=== PATIENT | female | born 1970 | race Caucasian/White ===

== ENCOUNTER → 2018-06-18 | Outpatient (CLI) | payer OTHER ==
[2018-06-18 13:11] VITALS: BP 156/81; PULSE 74; RESP 18
--- NOTE | 2018-06-18 13:32 | P.CONS ---
History of Present Illness - Reason for Consult Consult date: 06/18/18 - Chief Complaint Lower back and legs pain - History of Present Illness This is a 47-year-old lady with history of coronary disease and open-heart surgery. She is here today for chronic lower back pain that has been there for 15 years with no precipitating events. The pain goes across her lower back and radiates down both legs to the feet however she denies any numbness or tingling in the lower extremities. She also denies any bowel or bladder dysfunction or any weakness in the lower extremities. The pain gets worse by walking and improves by taking hot showers. The patient has been using [place] 10 mg 3 times a day for a few years however she would like to come off opioids and she's trying to find another way to treat her pain. Past Medical History Past Medical History: Hypertension, Myocardial Infarction ([place]) Additional Past Medical History / Comment(s): fibromyalgia, lupus. double bypass Last Myocardial Infarction Date:: 08/27/15 History of Any Multi-Drug Resistant Organisms: None Reported Past Surgical History: Heart Catheterization, Tonsillectomy Past Anesthesia/Blood Transfusion Reactions: No Reported Reaction Past Psychological History: No Psychological Hx Reported Smoking Status: Current every day smoker Past Alcohol Use History: None Reported Past Drug Use History: Marijuana, Opiates Additional Drug Use History / Comment(s): pt. states she smokes marijuana, and occassionally takes vicodin for pain - Past Family History Father History Unknown: Yes Brother(s) Family Medical History: No Reported History Sister(s) Family Medical History: No Reported History Mother Family Medical History: Hypertension Medications and Allergies Home Medications Medication Instructions Recorded Confirmed Type Acetaminophen [Tylenol] 1,000 mg PO Q4-6H PRN 08/28/15 06/18/18 History Aspirin EC [Ecotrin] 325 mg PO DAILY #30 tablet.dr 08/31/15 06/18/18 Rx Nitroglycerin Sl Tabs [Nitrostat] 0.4 mg SUBLINGUAL Q5M PRN #30 tab 08/31/1508/25 Rx Atenolol [Tenormin] 50 mg PO DAILY 11/17/15 06/18/18 History Furosemide [Lasix] 20 mg PO DAILY 12/03/15 06/18/18 History Hydrocodone/Acetaminophen [[place] 1 each PO Q6HR PRN #20 tab 12/25/15 06/18/18 Rx 5-325] Lisinopril [Zestril] 2.5 mg PO DIRECTED PRN 06/18/18 06/18/18 History Allergies Allergy/AdvReac Type Severity Reaction Status Date / Time No Known Allergies Allergy Verified 06/18/18 12:51 Physical Exam Vitals: Vital Signs Pulse Resp BP Pulse Ox 06/18/18 13:03 74 18 156/81 99 Intake and Output 06/17/18 06/18/18 06/18/18 22:59 06:59 14:59 Other: Weight 67.132 kg - Constitutional General appearance: average body habitus - EENT Eyes: PERRLA - Respiratory Respiratory: bilateral: CTA - Cardiovascular Heart sounds: normal: S1, S2 Abnormal Heart Sounds: systolic murmur - Neurologic Neurologic: CNII-XII intact - Musculoskeletal Neuro exam of the lower extremities showed normal and symmetrical muscle strength and deep tendon reflexes. Mateusz's test negative bilaterally Straight leg raising test negative bilaterally Internal and external rotation of the hip joints did not elicit any pain She has tenderness in the lumbar paravertebral area bilaterally - Psychiatric Psychiatric: A&O x's 3, appropriate affect, intact judgment & insight Results Results: The lumbar spine MRI showed disc bulging and neuroforaminal narrowing at the L5- S1 level plus facet arthropathy. Assessment and Plan Plan: This is a 47-year-old lady with what seems to be lumbar degenerative disc disease, neural foraminal stenosis, and lumbar spondylosis without myelopathy. She also has a history of fibromyalgia. The patient is opioid dependent however she is try to come off opioids and try other most of the treatments for her pain. The patient may benefit from getting physical therapy. For now I'll schedule her to have lumbar epidural steroid injection under fluoroscopic guidance at the L5-S1 level. She denies taking any strong anticoagulants despite her coronary artery disease, she only takes aspirin on a daily basis. The above-mentioned procedure was explained to the patient and her mother, questions were answered. I thank you for the referral
== END | disposition home or self-care (01) ==
LOC: PNWHC3 12:33
PROVIDERS: ATTEND Anesthesiology
DX: G89.29 Other chronic pain (principal); M54.5 Low back pain; M48.061 Spinal stenosis, lumbar region without neurogenic claudication; M51.36 Other intervertebral disc degeneration, lumbar region; M47.816 Spondylosis without myelopathy or radiculopathy, lumbar region; M79.7 Fibromyalgia; F11.20 Opioid dependence, uncomplicated; F12.90 Cannabis use, unspecified, uncomplicated; I10 Essential (primary) hypertension; I25.2 Old myocardial infarction; I25.10 Atherosclerotic heart disease of native coronary artery without angina pectoris; Z95.5 Presence of coronary angioplasty implant and graft; Z90.89 Acquired absence of other organs; Z79.82 Long term (current) use of aspirin
CPT/HCPCS: 99211

== ENCOUNTER 2018-06-27 06:17 | Day surgery (SDC) | payer OTHER ==
[2018-06-27] MEDS ORDERED: LACTATED RINGERS 1,000 ML IV ONE (07:10)
[2018-06-27 07:15] VITALS: TEMP 97.8
[2018-06-27] MEDS ORDERED: LACTATED RINGERS 1,000 ML IV SCH (07:15)
[2018-06-27] MEDS ORDERED: LIDOCAINE 1% 20 ML VIAL (10MG/ML) FOR IV START INTRADERMA ONE (07:17)
--- NOTE | 2018-06-27 08:08 | P.PCN ---
Date of Procedure: 06/27/18 Procedure(s) Performed: PREOPERATIVE DIAGNOSIS: 1- Lumbar Degenerative Disc Diseases 2-Lumbar spondylosis with Facet arthropathy without myelopathy POSTOPERATIVE DIAGNOSIS: 1-Lumber Degenerative Disc Diseases 2-Lumbar spondylosis with Facet arthropathy without myelopathy PROCEDURE 1. Lumbar epidural steroid injection under fluoroscopic guidance at the L5-S1 level. 2. Lumbar epidurogram. ANESTHESIA: Local with 1% lidocaine 3 ml and , moderate sedation with intravenous Versed 2 mg ,and fentanyle 50 Mcg EBL: Minimal PROCEDURE INDICATION: The patient with low back pain and radiculitis symptoms unresponsive to conservative treatment. Fluoroscopy was used to optimize visualization of the needle placement and to maximize safety. PROCEDURE DESCRIPTION / TECHNIQUE: The patient was seen and identified in the preoperative area. Risks, benefits , complications including but not limited to infections ,bleeding ,allergic reaction to the medications ,nerve damage and not complete pain releife , and alternatives were discussed with the patient. The patient agreed to proceed with the procedure and signed the consent. IV was started, and vital signs were stable. Patient was taken to the OR and time out was completed. The patient was placed in the prone position on procedure table and a pillow was placed under the abdomen to reduce lumbar lordosis. The lumbosacral area was prepped and draped in the usual sterile fashion.ere closely monitored during the procedure. Conscious sedation was used during the procedure to decrease patients anxiety. Vital signs was monitered during the entire procedure. Using anterior-posterior fluoroscopy, the L5-S1 interlaminar space was identified and the skin over this site was marked and then infiltrated with 1% lidocaine subcutaneously. Subsequently, a 20-gauge Tuohy epidural needle was inserted and advanced toward the epidural space using the ``Loss of resistance technique and guided by AP and lateral fluoroscopy. The correct needle position in the epidural space was verified with the injection of 2 mL of the water soluble contrast dye Isovue 200 contrast and observing an excellent epidurogram with the epidural spread of the dye, after negative aspiration for blood and CSF and in the absence of paresthesias. Again after negative aspiration, a 6 ml mixture containing 20 mg of Depo-Medrol , and 2 ml of preservative free Normal Saline, and 2 ml of preservative free lidocaine 1% solution was injected and a washout of epidurogram was seen. Needle was withdrawn intact, skin was cleansed, and bandages were applied. COMPLICATIONS: None DISPOSITION / PLANS: The patient was placed in a supine position and transferred to the recovery area in a stable condition for observation. There was no evidence of lower extremity motor or sensory deficit after the procedure. Patient was discharged from the recovery room after meeting discharge criteria. Home discharge instructions were given to the patient by the staff. The patient was reexamined prior to discharge. The patient will schedule a follow up in the clinic in 2-4 weeks.
[2018-06-27] MEDS ORDERED: IV FLUID CONTINUATION 1,000 ML IV ONE (08:13)
[2018-06-27 08:15] VITALS: RESP 16
--- NOTE | 2018-06-27 08:20 | FL ---
EXAMINATION TYPE: FL guided pain mgmt statistic DATE OF EXAM: 06/27/2018 HISTORY: Pain Lumbar epidural inj. Dr Yoo. 1 sec fl time. 1 pic scanned
[2018-06-27 08:30] VITALS: BP 145/87; PULSE 79
== END 2018-06-27 08:55 | disposition home or self-care (01) ==
LOC: ORPAIN 06:17
PROVIDERS: ATTEND Specialist
DX: M51.16 Intervertebral disc disorders with radiculopathy, lumbar region (principal); M47.26 Other spondylosis with radiculopathy, lumbar region; I25.10 Atherosclerotic heart disease of native coronary artery without angina pectoris; I10 Essential (primary) hypertension
CPT/HCPCS: 81025; 62323; J2250; J1030; J3010; Q9966

== ENCOUNTER 2018-07-10 08:32 | Day surgery (SDC) | payer OTHER ==
[2018-07-10 08:58] VITALS: TEMP 97.4
[2018-07-10] MEDS: LACTATED RINGERS 1,000 ML IV SCH ×2 (09:02→09:15)
--- NOTE | 2018-07-10 09:34 | P.PCN ---
Date of Procedure: 07/10/18 Surgeon: Piotr Mackenzie Description of Procedure: PREOPERATIVE DIAGNOSIS: Lumbar radiculopathy POSTOPERATIVE DIAGNOSIS: Same PROCEDURE Lumbar epidural steroid injection under fluoroscopic guidance at the [] level. ANESTHESIA: Local with 1% lidocaine 3 ml and IV sedation with Versed 2 mg EBL: Minimal PROCEDURE INDICATION: this is a pleasant 48-year-old woman with a history of back pain and pain in her buttocks and legs who presents today for lumbar epidural steroid injection. This is her second injection series. She reports significant reduction of her pain from her first procedure. PROCEDURE DESCRIPTION / TECHNIQUE: The patient was seen and identified in the preoperative area. Risks, benefits , complications including but not limited to infections ,bleeding ,allergic reaction to the medications ,nerve damage and not complete pain relief , and alternatives were discussed with the patient. The patient agreed to proceed with the procedure and signed the consent. IV was started, and vital signs were stable. Patient was taken to the OR and time out was completed. The patient was placed in the prone position on procedure table and a pillow was placed under the abdomen to reduce lumbar lordosis. The lumbosacral area was prepped and draped in the usual sterile fashion.ere closely monitored during the procedure. Conscious sedation was used during the procedure to decrease patients anxiety. Vital signs was monitered during the entire procedure. Using anterior-posterior fluoroscopy, the L5-S1 interlaminar space was identified and the skin over this site was marked and then infiltrated with 1% lidocaine subcutaneously. Subsequently, a 20-gauge Tuohy epidural needle was inserted and advanced toward the epidural space using the Loss of resistance technique and guided by AP and lateral fluoroscopy. The correct needle position in the epidural space was verified with the injection of contrast and observing an excellent epidurogram with the epidural spread of the dye, after negative aspiration for blood and CSF and in the absence of paresthesias. Again after negative aspiration, a 6 ml mixture co 80 mg of Depo-Medrol was injected and a washout of epidurogram was seen. Needle was withdrawn intact, skin was cleansed, and bandages were applied. COMPLICATIONS: None DISPOSITION / PLANS: The patient was placed in a supine position and transferred to the recovery area in a stable condition for observation. There was no evidence of lower extremity motor or sensory deficit after the procedure. Patient was discharged from the recovery room after meeting discharge criteria. Home discharge instructions were given to the patient by the staff. The patient was reexamined prior to discharge. The patient will schedule a follow up up for repeat of this procedure in 2-4 weeks.
[2018-07-10 09:45] VITALS: RESP 16
[2018-07-10] MEDS ORDERED: LACTATED RINGERS 1,000 ML IV ONE (09:47)
[2018-07-10 10:06] VITALS: BP 163/92; PULSE 74
--- NOTE | 2018-07-10 10:07 | FL ---
Fluoroscopy INDICATION: Pain FINDINGS: Fluoroscopy time: 2 seconds. Images obtained: 2. IMPRESSIONS: 1. Documentation of fluoroscopy.
== END 2018-07-10 10:27 | disposition home or self-care (01) ==
LOC: ORPAIN 08:32
PROVIDERS: ATTEND Pain Medicine Pain Medicine
DX: G89.29 Other chronic pain (principal); M54.16 Radiculopathy, lumbar region; Z79.891 Long term (current) use of opiate analgesic; I10 Essential (primary) hypertension; I25.2 Old myocardial infarction; Z95.1 Presence of aortocoronary bypass graft; I25.10 Atherosclerotic heart disease of native coronary artery without angina pectoris; M79.7 Fibromyalgia; M32.9 Systemic lupus erythematosus, unspecified; F17.200 Nicotine dependence, unspecified, uncomplicated; Z79.82 Long term (current) use of aspirin; Z79.899 Other long term (current) drug therapy
CPT/HCPCS: 62323; J2250; J1030; J3010; 99152

== ENCOUNTER → 2018-07-25 | Day surgery (SDC) | payer OTHER ==
[~2018-07-25] MED LIST: SODIUM CHLORIDE 0.9% 500 ML 500 ML IV SCH
[2018-07-25 09:01] VITALS: RESP 18
--- NOTE | 2018-07-25 10:12 | P.PCN ---
Date of Procedure: 07/25/18 Procedure(s) Performed: PREOPERATIVE DIAGNOSIS: 1- Lumbar Degenerative Disc Diseases 2-Lumbar spondylosis with Facet arthropathy without myelopathy POSTOPERATIVE DIAGNOSIS: 1-Lumber Degenerative Disc Diseases 2-Lumbar spondylosis with Facet arthropathy without myelopathy PROCEDURE 1. Lumbar epidural steroid injection under fluoroscopic guidance at the L5-S1 level. 2. Lumbar epidurogram. ANESTHESIA: Local with 1% lidocaine 3 ml and , moderate sedation with intravenous Versed 2 mg ,and fentanyle 100 Mcg EBL: Minimal PROCEDURE INDICATION: The patient with low back pain and radiculitis symptoms unresponsive to conservative treatment. Fluoroscopy was used to optimize visualization of the needle placement and to maximize safety. PROCEDURE DESCRIPTION / TECHNIQUE: The patient was seen and identified in the preoperative area. Risks, benefits , complications including but not limited to infections ,bleeding ,allergic reaction to the medications ,nerve damage and not complete pain releife , and alternatives were discussed with the patient. The patient agreed to proceed with the procedure and signed the consent. IV was started, and vital signs were stable. Patient was taken to the OR and time out was completed. The patient was placed in the prone position on procedure table and a pillow was placed under the abdomen to reduce lumbar lordosis. The lumbosacral area was prepped and draped in the usual sterile fashion.ere closely monitored during the procedure. Conscious sedation was used during the procedure to decrease patients anxiety. Vital signs was monitered during the entire procedure. Using anterior-posterior fluoroscopy, the L5-S1 interlaminar space was identified and the skin over this site was marked and then infiltrated with 1% lidocaine subcutaneously. Subsequently, a 20-gauge Tuohy epidural needle was inserted and advanced toward the epidural space using the ``Loss of resistance technique and guided by AP and lateral fluoroscopy. The correct needle position in the epidural space was verified with the injection of 2 mL of the water soluble contrast dye Isovue 200 contrast and observing an excellent epidurogram with the epidural spread of the dye, after negative aspiration for blood and CSF and in the absence of paresthesias. Again after negative aspiration, a 6 ml mixture containing 80 mg of Depo-medrol and 2 ml of preservative free Normal Saline, and 2 ml of preservative free lidocaine 1% solution was injected and a washout of epidurogram was seen. Needle was withdrawn intact, skin was cleansed, and bandages were applied. COMPLICATIONS: None DISPOSITION / PLANS: The patient was placed in a supine position and transferred to the recovery area in a stable condition for observation. There was no evidence of lower extremity motor or sensory deficit after the procedure. Patient was discharged from the recovery room after meeting discharge criteria. Home discharge instructions were given to the patient by the staff. The patient was reexamined prior to discharge. The patient will schedule a follow up in the clinic in 2-4 weeks.
[2018-07-25 10:45] VITALS: PULSE 72; TEMP 98.1
[2018-07-25 10:51] VITALS: BP 134/76
--- NOTE | 2018-07-25 12:10 | FL ---
EXAMINATION TYPE: [place] guided pain mgmt statistic DATE OF EXAM: 07/25/2018 COMPARISON: NONE HISTORY: Low back pain TECHNIQUE: Fluoroscopy. FINDINGS/IMPRESSION: Fluoroscopic guidance was provided during procedure performed by Dr. Ramos. A total of 2 seconds of fluoroscopic time was utilized during the procedure and 1 spot images was ac quired demonstrating localization of the lumbar spine.
== END ==
LOC: ORPAIN 08:04
PROVIDERS: ATTEND Specialist
DX: M51.16 Intervertebral disc disorders with radiculopathy, lumbar region (principal); M47.26 Other spondylosis with radiculopathy, lumbar region
CPT/HCPCS: 62323; J2250; J1030; J3010; Q9966

== ENCOUNTER → 2018-08-26 | Outpatient (CLI) | payer OTHER ==
[2018-08-26 14:41] VITALS: BP 144/89; PULSE 89; RESP 16
--- NOTE | 2018-08-26 14:54 | P.PN ---
Subjective Progress Note Date: 08/26/18 Principal diagnosis: Low back pain Olga Lidia presents for follow-up exam today she continues to have low back pain which sometimes goes down both legs. She reports she had excellent pain relief from the epidural steroid injections in inquiring about repeating them. She had a series of 3 epidural steroid injections over the past 6 weeks. She reports that her back pain significantly improved and her leg pain significantly improved. She continues to use pain medications at this point prescribed by her other doctors. She she has decreased her pain medication usage during the last month or so since she is having injections. He reports that she does not do any physical activity that she is scared to her back. She reports she does not exercise regularly. She reports she's been in physical therapy in the past but is unsure if its help. She's had history of cardiac surgery at early age secondary to a heart attack. She denies any bowel or bladder incontinence at this time. Objective - Vital Signs Vital signs: Vital Signs Temp Pulse 89 08/26/18 14:36 Resp 16 08/26/18 14:36 BP 144/89 08/26/18 14:36 Pulse Ox Intake & Output 08/25/18 08/26/18 08/26/18 18:59 06:59 18:59 Weight 68.039 kg - Exam General: Awake and alert oriented 3 no distress Respiratory exam: No audible wheezing no accessory muscle usage Cardiovascular exam: regular rate, palpable bilateral pulses, no lower extremity edema Abdominal exam: No distention nontender to palpation Cervical spine: Normal alignment, Spurling's negative, facet loading negative Lumbar spine: Loss of lumbar lordosis, normal alignment, tender to palpation over bilateral paraspinal muscles, facet loading is positive bilaterally. Straight leg raise is positive bilaterally at 90. Sacroiliac joints: Nontender to palpation, DENEEN is negative, [place] negative Neuro exam: Normal sensation in bilateral upper extremities, deep tendon reflexes are 2+ bilateral upper extremities. Normal sensation in bilateral lower extremities. Deep tendon reflexes are 2+ in lower extremities Psych exam: Cooperative, appropriate mood Assessment and Plan Assessment: Lumbar radiculopathy Degenerative disc disease Lumbar extensor muscle weakness Plan: I advised the patient that we cannot repeat the injections at this time as she is just had a series of 3 with the last one being in early July. I advised the patient we will not billed repeat this injection until early next year. I discussed the risks and benefits of steroids and chronic use patient appears to understand in detail. I advised the patient that she should focus on core strengthening and lumbar extensor strengthening in order to improve her overall lumbar spine health. I've given her credible website to follow up and review some core stability workouts. We'll schedule patient for an epidural steroid injection 2 months time Time with Patient: Less than 30
== END | disposition home or self-care (01) ==
LOC: PNWHC3 14:15
PROVIDERS: ATTEND Hospitalist
DX: M51.16 Intervertebral disc disorders with radiculopathy, lumbar region (principal); M62.81 Muscle weakness (generalized); I25.2 Old myocardial infarction; Z98.890 Other specified postprocedural states
CPT/HCPCS: 99211

== ENCOUNTER 2020-08-25 23:33 | Inpatient (IN) | payer OTHER ==
--- NOTE | 2020-08-25 23:41 | ED ---
Chest Pain HPI - General Stated Complaint: Chest Pain Time Seen by Provider: 08/25/20 23:36 Source: RN notes reviewed, old records reviewed Limitations: no limitations - History of Present Illness Initial Comments: This is a 50-year-old female DF for evaluation of chest pain patient in today for evaluation regarding chest pain. Patient has had days of chest pain today 8 or so nitros a day with known history of CABG, two-vessel. Underlying disease aside from those that were fixed. Patient states that is her heart is having assisted is sweating and shortness of breath especially with exertion. Improved with nitro. At this point nitro does not seem to be helping MD Complaint: chest pain -: days(s) Onset: during rest, during exertion Pain Location: substernal, left chest Pain Radiation: none Severity: moderate Severity scale (1-10): 4 Quality: tightness, heaviness Consistency: intermittent Improves With: nitroglycerin Worsens With: exertion Anginal Symptoms: diaphoresis, dyspnea Other Symptoms: palpitations Treatments Prior to Arrival: none - Related Data Home Medications Medication Instructions Recorded Confirmed Acetaminophen [Tylenol] 1,000 mg PO Q4-6H PRN 08/28/15 08/26/18 atenoloL [Tenormin] 25 mg PO DAILY 11/17/15 08/26/18 Furosemide [Lasix] 20 mg PO DAILY 12/03/15 08/26/18 lisinopriL [Zestril] 2.5 mg PO DIRECTED PRN 06/18/18 08/26/18 Aspirin EC [Ecotrin] 81 mg PO DAILY 07/25/18 08/26/18 Previous Rx's Medication Instructions Recorded Nitroglycerin Sl Tabs [Nitrostat] 0.4 mg SUBLINGUAL Q5M PRN #30 tab 08/31/15 Hydrocodone/Acetaminophen [[place] 1 each PO Q6HR PRN #20 tab 12/25/15 5-325] Allergies Allergy/AdvReac Type Severity Reaction Status Date / Time No Known Allergies Allergy Verified 08/25/20 23:45 Review of Systems ROS Statement: Those systems with pertinent positive or pertinent negative responses have been documented in the HPI. ROS Other: All systems not noted in ROS Statement are negative. EKG Findings - EKG Comments: EKG Findings:: EKG is sinus rhythm 67 [place] 156 QRS 96 QTc 437 Past Medical History Past Medical History: Chest Pain / Angina, Deep Vein Thrombosis (DVT), Hypertension, Myocardial Infarction ([place]), Skin Disorder Additional Past Medical History / Comment(s): fibromyalgia, lupus. double bypass, CONGESTIVE HEART FAILURE, HAS BLOOD CLOT IN RT FOREARM AND ANOTHER ONE IN LEFT LEG THIGH AREA Last Myocardial Infarction Date:: 08/27/15 History of Any Multi-Drug Resistant Organisms: None Reported Past Surgical History: Adenoidectomy, Coronary Bypass/CABG, Heart Catheterization, Tonsillectomy Additional Past Surgical History / Comment(s): DOUBLE BYPASS- 2015, ANEURY SM GRAFT NOV 2015 Past Anesthesia/Blood Transfusion Reactions: No Reported Reaction Past Psychological History: Anxiety Additional Psychological History / Comment(s): SLIGHT ANXIETY Past Alcohol Use History: None Reported Past Drug Use History: Marijuana, Opiates Additional Drug Use History / Comment(s): pt. states she smokes marijuana OCCASIONALLY AND TAKES takes vicodin for pain ALL THE TIME - Past Family History Father History Unknown: Yes Additional Family Medical History / Comment(s): UNKNOWN Brother(s) Family Medical History: No Reported History Sister(s) Family Medical History: No Reported History Mother Family Medical History: Hypertension General Exam General appearance: alert, in no apparent distress Head exam: Present: atraumatic, normocephalic, normal inspection Eye exam: Present: normal appearance, PERRL, EOMI. Absent: scleral icterus, conjunctival injection, periorbital swelling ENT exam: Present: normal exam, mucous membranes moist Neck exam: Present: normal inspection. Absent: tenderness, meningismus, lymphadenopathy Respiratory exam: Present: normal lung sounds bilaterally. Absent: respiratory distress, wheezes, rales, rhonchi, stridor Cardiovascular Exam: Present: regular rate, normal rhythm, normal heart sounds. Absent: systolic murmur, diastolic murmur, rubs, gallop, clicks GI/Abdominal exam: Present: soft, normal bowel sounds. Absent: distended, tenderness, guarding, rebound, rigid Extremities exam: Present: normal inspection, full ROM, normal capillary refill. Absent: tenderness, pedal edema, joint swelling, calf tenderness Back exam: Present: normal inspection Neurological exam: Present: alert, oriented X3, CN II-XII intact Psychiatric exam: Present: normal affect, normal mood Skin exam: Present: warm, dry, intact, normal color. Absent: rash Course Vital Signs 11/18/20 11/19/20 23:42 00:01 Temperature 98.4 F Pulse Rate 77 77 Respiratory 18 18 Rate Blood Pressure 144/81 117/71 O2 Sat by Pulse 98 98 Oximetry - Reevaluation(s) Reevaluation #1: 08/26/20 00:59 Medical records reviewed Reevaluation #2: 08/26/20 00:59 Patient still with episodic chest pain Reevaluation #3: 08/26/20 00:59 Patient informed results, questions answered agrees for observation - Consultations Consultation #1: Spoke with [facility] agrees to admit this patient Chest Pain MDM - MDM If you're female will be admitted for chest pain observation with history of CAD bypass and recurrent chest pain improved with nitro, positive ACS Critical Care Time Critical Care Time: Yes Total Critical Care Time: 31 Disposition Clinical Impression: Unstable angina pectoris, Chest pain Disposition: ADMITTED IP TO THIS [facility] Condition: Fair Instructions (If sedation given, give patient instructions): Chest Pain (ED) Referrals: Nelda Esteban MD [Primary Care Provider] - 1-2 days
[2020-08-26 00:09] LABS: Basophils # (A) 0.2 k/uL (0-0.2); Basophils % (A) 1 %; Eosinophils # (A) 0.2 k/uL (0-0.7); Eosinophils % (A) 2 %; HCT 37.1 % (34.0-46.0); HGB 12.2 gm/dL (11.4-16.0); Lymphocytes # (A) 2.8 k/uL (1.0-4.8); Lymphocytes % (A) 25 %; MCH 31.3 pg (25.0-35.0); MCHC 32.9 g/dL (31.0-37.0); MCV 95.4 fL (80.0-100.0); Mean Platelet Volume 7.8; Monocytes # (A) 0.7 k/uL (0-1.0); Monocytes % (A) 6 %; Neutrophils # (A) 6.9 k/uL (1.3-7.7); Neutrophils % (A) 63 %; Platelet Count 194 k/uL (150-450); RBC 3.89 m/uL (3.80-5.40); RDW 13.3 % (11.5-15.5); WBC 10.9 k/uL (3.8-10.6)
[2020-08-26 00:20] LABS: Albumin 3.5 g/dL (3.5-5.0); Calcium 8.8 mg/dL (8.4-10.2); Magnesium 2.1 mg/dL (1.6-2.3); Potassium 4.3 mmol/L (3.5-5.1); Total Bilirubin 0.3 mg/dL (0.2-1.3); Total Protein 6.4 g/dL (6.3-8.2)
[2020-08-26 00:27] LABS: D-Dimer 0.36 mg/L FEU (<0.60); INR 0.9 (<1.2); Partial Thromboplastin Time 24.3 sec (22.0-30.0); Prothrombin Time 9.4 sec (9.0-12.0)
--- NOTE | 2020-08-26 00:43 | XR ---
EXAM: XR Chest, 2 Views CLINICAL HISTORY: ITS.REASON XR Reason: Chest Pain TECHNIQUE: Frontal and lateral views of the chest. COMPARISON: March 12, 2016 FINDINGS: Lungs: Unremarkable. No consolidation. Pleural space: Unremarkable. No pneumothorax. Heart: Unremarkable. No cardiomegaly. Mediastinum: Unremarkable. Bones/joints: There are multiple sternal wires. Mild degenerative changes in the lower thoracic spine. IMPRESSION: No acute findings in the chest.
[2020-08-26] MEDS ORDERED: HEPARIN SODIUM,PORCINE 5,000 UNIT/ML 1 ML VIAL IV PRN (01:00)
[2020-08-26] MEDS ORDERED: HEPARIN SODIUM,PORCINE 5,000 UNIT/ML 1 ML VIAL IV ONE (01:00)
[2020-08-26] MEDS ORDERED: NITROGLYCERIN SL TABS 0.4 MG TAB SUBLINGUAL PRN ×3 (01:00→14:30)
[2020-08-26] MEDS ORDERED: ASPIRIN 81 MG PO STA (01:00)
[2020-08-26] MEDS ORDERED: MORPHINE SULFATE 4 MG/ML SYRINGE IV PRN (01:00)
[2020-08-26] MEDS ORDERED: HEPARIN SOD,PORK IN 0.45% NACL 25,000 UNIT in 0.45% NACL 1 250ML.BAG IV SCH (01:00)
[2020-08-26] MEDS: SODIUM CHLORIDE 0.9% 1,000 ML IV SCH (01:46)
[2020-08-26 06:26] LABS: Mean Platelet Volume 8.6; Platelet Count 180 k/uL (150-450)
[2020-08-26] MEDS ORDERED: ATORVASTATIN 80 MG TAB PO SCH (09:00)
[2020-08-26] MEDS ORDERED: ALPRAZolam 0.25 MG TAB PO PRN (09:13)
[2020-08-26] MEDS ORDERED: SODIUM CHLORIDE 0.9% 1,000 ML in EMPTY BAG 1 BAG IV ONE (09:13)
[2020-08-26] MEDS ORDERED: ALPRAZolam 0.5 MG TAB PO PRN (09:13)
[2020-08-26] MEDS ORDERED: ASPIRIN 325 MG TAB PO STA (09:13)
[2020-08-26] MEDS ORDERED: ATORVASTATIN 80 MG TAB PO STA (09:13)
--- NOTE | 2020-08-26 09:32 | ECHOF ---
Referral Reason:elevTrop MEASUREMENTS -------- HEIGHT: 167.6 cm WEIGHT: 72.6 kg BP: RVIDd: 2.9 cm (< 3.3) IVSd: 1.4 cm (0.6 - 1.1) LVIDd: 4.3 cm (3.9 - 5.3) LVPWd: 1.2 cm (0.6 - 1.1) IVSs: 1.7 cm LVIDs: 2.4 cm LVPWs: 2.2 cm LAESV Index (A-L): 31.02 ml/m Ao Diam: 3.0 cm (2.0 - 3.7) AV Cusp: 1.6 cm (1.5 - 2.6) MV EXCURSION: 17.568 mm (> 18.000) MV EF SLOPE: 130 mm/s (70 - 150) EPSS: 0.6 cm MV E Martínez: 1.35 m/s MV DecT: 190 ms MV A Martínez: 0.84 m/s MV E/A Ratio: 1.61 RAP: 5.00 mmHg RVSP: 46.08 mmHg FINDINGS -------- Sinus rhythm. This was a technically adequate study. The left ventricular size is normal. There is moderate concentric left ventricular hypertrophy. O verall left ventricular systolic function is normal with, an EF between 55 - 60 %. The diastolic fi lling pattern is normal for the age of the patient 19.54. The right ventricle is normal in size. LA is midly dilated 29-33ml/m2. The right atrial size is normal. Interatrial and interventricular septum intact. The aortic valve is trileaflet and appears structurally normal. There is no evidence of aortic regu rgitation. There is no evidence of aortic stenosis. Mild mitral regurgitation is present. Cvoh-lu-saoqtrdj tricuspid regurgitation present. There is mild to moderate pulmonary hypertension. The right ventricular systolic pressure, as measured by Doppler, is 46.08mmHg. There is no pulmonic regurgitation present. The aortic root size is normal. Normal inferior vena cava with normal inspiratory collapse consistent with estimated right atrial pre ssure of 5 mmHg. There is no pericardial effusion. CONCLUSIONS -------- 1. Sinus rhythm. 2. This was a technically adequate study. 3. The left ventricular size is normal. 4. There is moderate concentric left ventricular hypertrophy. 5. Overall left ventricular systolic function is normal with, an EF between 55 - 60 %. 6. The diastolic filling pattern is normal for the age of the patient 19.54 7. LA is midly dilated 29-33ml/m2. 8. Mild mitral regurgitation is present. 9. Pvlo-nz-vmuoskic tricuspid regurgitation present. 10. There is mild to moderate pulmonary hypertension. 11. The right ventricular systolic pressure, as measured by Doppler, is 46.08mmHg. HEALTH CARE COORDINATOR: Denise Quinones RDCS
[2020-08-26] MEDS: METOPROLOL TARTRATE 25 MG TAB PO SCH ×2 (10:10→21:03)
--- NOTE | 2020-08-26 10:42 | CONS ---
CONSULTATION Mrs. Harmon is 50-year-old female with known history of coronary artery disease, status post myocardial infarction in 2015. 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 She was transferred to [facility] and underwent 2 ways bypass as well as resection of the aneurysm. She has not been following with Cardiology since that time. She presented to the emergency room with about 2 months' exertional chest discomfort, relieved with nitroglycerin. Yesterday, the discomfort was getting worse, radiating to the back into the left shoulder and associated with dyspnea. In view of that, came into the emergency room. At the time of my evaluation. She is feeling well. The patient denies any dizziness or palpitation. She has occasional peripheral edema, no clear PND or orthopnea. Her coronary risk factors are remarkable for hypertension, hyperlipidemia and chronic tobacco use. She continues to smoke about a pack a day. MEDICATION: At home include atenolol that she takes on a p.r.n. basis and aspirin once a day. REVIEW OF SYSTEMS: RESPIRATORY SYSTEM: She has dyspnea on exertion, occasional wheezing, chronic tobacco use. GI SYSTEM: No recent GI bleeding, no peptic ulcer disease. SYSTEM: No dysuria or hematuria. NERVOUS SYSTEM: No stroke or seizure. PHYSICAL EXAMINATION: She is a 50-year-old female, alert, oriented, in no apparent distress. Blood pressure 137/70 with a heart rate in the 60s. HEAD: Normocephalic. EYES: Sclerae nonicteric. NECK: Good upstroke, no bruit, no jugular venous distention. LUNGS: Clear to auscultation. HEART: Regular rate and rhythm, S1, S2. No S3 with systolic murmur at the base. No diastolic murmur, no rub. ABDOMEN: Soft, nontender, positive bowel sounds, no organomegaly. EXTREMITIES: No edema, intact pulses. LAB DATA: Revealed troponin 0.04, 0.08 and 0.162. NT proBNP of 1130. BUN and creatinine 21 and 0.87. Hemoglobin 12.2 EKG revealed a sinus mechanism normal axis and intervals with T- wave inversion in V1 and V2. Chest x-ray shows no acute infiltrate. IMPRESSION: 1. Non ST-segment elevation myocardial infarction, progressive over the last 2 months in a patient with known history of coronary disease. 2. Chronic tobacco use. 3. Prior history of coronary bypass grafting, resection of an aneurysm. 4. Hypertension. 5. Hyperlipidemia. RECOMMENDATION: I would recommend to obtain echocardiogram with Doppler. I would recommend to proceed with a cardiac catheterization. The rationale behind the procedures, risks, and complication were discussed with the patient who is in full understanding and agreement. I will try to obtain the results of her coronary artery bypass grafting from [facility]. Depending on her progress and the results of her testing, further recommendation will be made. Thank you for this consult. Will follow with you. MMSUEL / IJN: [id number] /
[2020-08-26] MEDS ORDERED: LIDOCAINE 1% INJ 10MG/ML (20 ML MDV) ONE (12:50)
[2020-08-26] MEDS ORDERED: fentaNYL (PF) 50 MCG/ML 2 ML AMP ONE (13:06)
[2020-08-26] MEDS ORDERED: IV FLUID CONTINUATION 1,000 ML IV ONE (13:16)
[2020-08-26] MEDS ORDERED: fentaNYL (PF) 50 MCG/ML 2 ML AMP IVP ONE (13:38)
[2020-08-26] MEDS ORDERED: LIDOCAINE 1% INJ 10MG/ML (20 ML MDV) SQ ONE (13:43)
[2020-08-26] MEDS: MIDAZOLAM 2 MG/2 ML VIAL IVP ONE ×2 (13:45→14:11)
--- NOTE | 2020-08-26 13:46 | P.HPIM ---
History of Present Illness Patient is a pleasant 50-year-old female with known history of coronary artery disease, myocardial infarction in 2015 followed by coronary artery bypass grafting came in with complaints of chest discomfort relieved by nitroglycerin exertional [id number]-ympsgtqc the in severity radiating to the back as well as left shoulder his sister shortness of breath with no diaphoresis. Patient denied any orthopnea paroxysmal nocturnal dyspnea. Patient is found to have mildly elevated troponins because of which patient is going for cardiac catheterization today Review of Systems REVIEW OF SYSTEMS: CONSTITUTIONAL: No fever, no malaise, no fatigue. HEENT: No recent visual problems or hearing problems. Denied any sore throat. CARDIOVASCULAR: No orthopnea, PND, no palpitations, no syncope. PULMONARY: No shortness of breath, no cough, no hemoptysis. GASTROINTESTINAL: No diarrhea, no nausea, no vomiting, no abdominal pain. NEUROLOGICAL: No headaches, no weakness, no numbness. HEMATOLOGICAL: Denies any bleeding or petechiae. GENITOURINARY: Denies any burning micturition, frequency, or urgency. MUSCULOSKELETAL/RHEUMATOLOGICAL: Denies any joint pain, swelling, or any muscle pain. ENDOCRINE: Denies any polyuria or polydipsia. The rest of the 14-point review of systems is negative. Past Medical History Past Medical History: Chest Pain / Angina, Deep Vein Thrombosis (DVT), Hypertension, Myocardial Infarction (CO), Skin Disorder Additional Past Medical History / Comment(s): fibromyalgia, lupus. double bypass, CONGESTIVE HEART FAILURE, HAS BLOOD CLOT IN RT FOREARM AND ANOTHER ONE IN LEFT LEG THIGH AREA Last Myocardial Infarction Date:: 08/25/20 History of Any Multi-Drug Resistant Organisms: None Reported Past Surgical History: Adenoidectomy, Coronary Bypass/CABG, Heart Catheterization, Tonsillectomy Additional Past Surgical History / Comment(s): DOUBLE BYPASS- 2015, ANEURYSM GRAFT NOV 2015 Past Anesthesia/Blood Transfusion Reactions: No Reported Reaction Smoking Status: Current every day smoker - Past Family History Father History Unknown: Yes Additional Family Medical History / Comment(s): UNKNOWN Brother(s) Family Medical History: No Reported History Sister(s) Family Medical History: No Reported History Mother Family Medical History: Hypertension Medications and Allergies Home Medications Medication Instructions Recorded Confirmed Type Acetaminophen [Tylenol] 1,000 mg PO Q4-6H PRN 08/28/15 08/26/20 History Aspirin EC [Ecotrin] 81 mg PO DAILY 07/25/18 08/26/20 History Nitroglycerin Sl Tabs [Nitrostat] 0.4 mg SL Q5M PRN 08/26/20 08/26/20 History atenoloL [Atenolol] 25 mg PO DAILY PRN 08/26/20 08/26/20 History Allergies Allergy/AdvReac Type Severity Reaction Status Date / Time No Known Allergies Allergy Verified 08/26/20 06:30 Physical Exam Vitals: Vital Signs Temp Pulse Pulse Resp BP BP Pulse Ox 08/26/20 11:02 97.8 F 73 20 165/93 100 08/26/20 10:54 97.8 F 73 20 165/93 100 08/26/20 10:12 79 18 159/88 98 08/26/20 06:00 18 137/70 98 08/26/20 02:00 68 18 123/74 98 08/26/20 01:00 94 18 152/78 98 08/26/20 00:01 77 18 117/71 98 08/25/20 23:42 98.4 F 77 18 144/81 98 Intake and Output 08/25/20 08/26/20 08/26/20 22:59 06:59 14:59 Intake Total 86.219 Balance 86.219 Intake: Intake, IV Titration 86.219 Amount Heparin Sod,Pork in 0.45% 86.219 NaCl 25,000 unit In 0.45 % NaCl 1 250ml.bag @ 12 UNITS/KG/HR 8.709 mls/hr IV .Q24H [facility] Rx#: [id number] Other: # Voids 1 Weight 72.575 kg 72.575 kg PHYSICAL EXAMINATION: GENERAL: The patient is alert and oriented x3, not in any acute distress. Well developed, well nourished. HEENT: Pupils are round and equally reacting to light. EOMI. No scleral icterus. No conjunctival pallor. Normocephalic, atraumatic. No pharyngeal erythema. No thyromegaly. CARDIOVASCULAR: S1 and S2 present. No murmurs, rubs, or gallops. PULMONARY: Chest is clear to auscultation, no wheezing or crackles. ABDOMEN: Soft, nontender, nondistended, normoactive bowel sounds. No palpable organomegaly. MUSCULOSKELETAL: No joint swelling or deformity. EXTREMITIES: No cyanosis, clubbing, or pedal edema. NEUROLOGICAL: Gross neurological examination did not reveal any focal deficits. SKIN: No rashes. Results CBC & Chem 7: 08/26/20 05:50 08/26/20 00:01 Labs: Abnormal Lab Results - Last 24 Hours (Table) 08/26/20 08/26/20 08/26/20 Range/Units 00:01 00:01 00:01 WBC 10.9 H (3.8-10.6) k/uL APTT (22.0-30.0) sec BUN 21 H (7-17) mg/dL Glucose 120 H (74-99) mg/dL Troponin I 0.040 H* (0.000-0.034) ng/mL 08/26/20 08/26/20 08/26/20 Range/Units 03:35 05:50 05:50 WBC (3.8-10.6) k/uL APTT 75.5 H (22.0-30.0) sec BUN (7-17) mg/dL Glucose (74-99) mg/dL Troponin I 0.081 H* 0.162 H* (0.000-0.034) ng/mL Thrombosis Risk Factor Assmnt - Choose All That Apply Each Factor Represents 1 point: Acute CO, Age 41-60 years Thrombosis Risk Factor Assessment Total Risk Factor Score: 2 Thrombosis Risk Factor Assessment Level: Low Risk Assessment and Plan Plan: -Acute non-ST elevation microinfarction: Patient will undergo cardiac catheterization today. Continue with antiplatelet therapy presently on heparin which are probably will not be continued after cardiac catheterization, continue with beta jose alberto and statin. -Nicotine use: Counseling was provided -Coronary artery disease -Hypertension -Hyperlipidemia
[2020-08-26] MEDS ORDERED: HEPARIN SODIUM 1,000 UN/ML (10ML VL) ONE (13:51)
[2020-08-26] MEDS ORDERED: PRASUGREL 10 MG TAB ONE (13:52)
[2020-08-26] MEDS: HEPARIN SODIUM 1,000 UN/ML (10ML VL) IV ONE ×3 (13:58→14:09)
[2020-08-26] MEDS ORDERED: PRASUGREL 10 MG TAB PO ONE (14:00)
[2020-08-26] MEDS ORDERED: IOPAMIDOL-370 125ML BTL INJ ONE (14:06)
[2020-08-26] MEDS: NITROGLYCERIN 1000MCG/10ML SYRINGE INTRACORON ONE ×2 (14:06→14:12)
[2020-08-26] MEDS ORDERED: IOPAMIDOL-250 100ML BTL INTRAARTER ONE (14:20)
[2020-08-26] MEDS ORDERED: MAG HYDROX/AL HYDROX/SIMETH 30 ML CUP PO PRN (14:30)
[2020-08-26] MEDS ORDERED: SODIUM CHLORIDE 0.9% 1,000 ML IV SCH (14:30)
[2020-08-26] MEDS ORDERED: ZOLPIDEM 5 MG TAB PO PRN (14:30)
[2020-08-26] MEDS ORDERED: ATROPINE SULFATE 0.1 MG/ML 10ML SYRINGE IV PRN (14:30)
[2020-08-26] MEDS ORDERED: RX INFO: IV CONTRAST WAS GIVEN 1 EACH MISC MISCELLANE PRN (14:30)
--- NOTE | 2020-08-26 15:40 | PTCA ---
PERCUTANEOUSTRANS CORORONARY ANGIOGRAPHY Mrs. Harmon is 50-year-old female with known history of coronary artery disease, status post coronary artery bypass grafting, history of chronic tobacco use, hyperlipidemia intolerant to statin, who presented with non ST-segment elevation myocardial infarction, underwent cardiac catheterization, was found to have critical stenosis involving the mid LAD. In view of that, recommendation made regarding angioplasty and stenting, the procedures, risks, and complication were discussed with the patient who is in full understanding and agreement. PROCEDURE: A 6-[place] FR4 guiding catheter was introduced into the system, after cannulating the left main, a 0.014 balanced medium weight J-wire was advanced across the lesion, positioned distal LAD, subsequently a 2.5 x 12 mm NC Euphora balloon was advanced and one inflation at 10 atmospheres was done, following that the balloon was removed and a 2.25 x 18 mm Xience Taryn stent was deployed, postdilated at 16 atmospheres. Following that, the balloon was removed and a 2.5 x 12 mm NC Euphora balloon was advanced and one inflation in the mid segment of the stent was done at 14 atmospheres. After the last inflation, after appropriate wait, the balloon and the guidewire were withdrawn back in the guiding catheter. Images were obtained and repeated. Those images reveal stable successful stenting. At that point, the guiding catheter, the balloon and the guidewire removed. The sheath was removed, hemostasis was obtained with deployment of an Angio-Seal. There was no immediate complication. The patient was returned to her room in stable condition. Of note, the patient received a total of 8000 units of intravenous heparin, her HCT was monitored and she received an oral loading dose of Effient. She had chest discomfort and EKG changes with the inflation which resulted in procedure. RESULTS: Successful stenting of the mid LAD with reduction of stenosis from 95% to 0%. The patient has diffuse disease in the vessel. RECOMMENDATION: Patient will be continued on aspirin, Effient, Zetia. She will be monitored for the need to start other lipid-lowering agent. The importance of smoking cessation were discussed with the patient and her family and they are in full understanding and agreement. Duration of sedation is 38 minutes. MMODL / IJN: [id number] /
--- NOTE | 2020-08-26 15:43 | LTR ---
DATE OF SERVICE: 08/26/2020 RE: Faustino Suni Dear Dr. Esteban; I had the pleasure to perform cardiac catheterization and coronary angioplasty on Mrs. Harmon at [facility] on August 26, 2020 and a full copy of the procedure note will be forwarded to you. In brief, she was found to have patent saphenous vein graft to the OM and to the RCA with critical stenosis in the LAD and underwent successful stenting of that vessel. I am hopeful that this procedure will stabilize her status. Thank you again for allowing me to participate in this patient's personal care. Please feel free to call for any questions. Sincerely yours, Hetal Greer MD MMSUEL / ELN: [id number] /
--- NOTE | 2020-08-26 15:43 | CC ---
CARDIAC CATHETERIZATION REPORT Mrs. Harmon is 50-year-old female with a history of coronary artery disease, status post myocardial infarction in 2015 and subsequent coronary artery bypass grafting in 2016 at [facility] and removal of pseudoaneurysm. She at that time received a saphenous vein graft to the OM and saphenous vein graft to the right coronary artery. Patient has not been followed by a home restoration service cleaner and for the last 2 months or so has been complaining of progressive episodes of exertional chest discomfort, relieved with sublingual nitroglycerin. She came into the emergency room and had mild troponin elevation. In view of that, recommendation was made regarding cardiac catheterization. The procedures, its risks and complications were discussed with the patient, who was in full understanding and agreement. PROCEDURE DESCRIPTION: Patient was brought to the laboratory mechanical technician in a fasting, semi-sedated state. After receiving fentanyl and Benadryl and achieving a moderate conscious sedated state, using Xylocaine anesthesia and Seldinger technique a 6-[place]izen [place] sheath was introduced in the right femoral artery. Selective right and left coronary angiography was performed using 6- [place] 4 bend right and left Shira catheters. Multiple views were taken of the coronary arteries, including hemiaxial views. Following that, the right Shira was used to cannulate the saphenous vein graft to the obtuse marginal branch and to the right coronary artery. Images of the grafts were obtained. Following that, a 6-[place]izen [place] tight pigtail catheter was introduced in the left ventricle and pressures were calculated. Following that, catheters were removed and images were reviewed. FINDINGS: LEFT MAIN: This is a short-sized vessel bifurcating into left circumflex and left anterior descending artery. Left main coronary artery has a 20% to 30% plaque distally. LEFT ANTERIOR DESCENDING CORONARY ARTERY: This vessel reaches to the apex giving rise to 2 diagonal branches. The left anterior descending artery is diffusely diseased and calcified proximally. In the mid segment after the takeoff of the first septal collar separator, there is a tight eccentric lesion of 99%. The rest of the vessel has diffuse intimal disease without any evidence of high-grade stenosis. LEFT CIRCUMFLEX: This vessel is totally occluded proximally with no significant antegrade flow. RIGHT CORONARY ARTERY: This is a large dominant vessel bifurcating distally into PDA and posterolateral segment and branches. The right coronary artery is diffusely diseased throughout its course with an area stenosis up to 80% to 90%. There is competitive flow noted into the PDA. SAPHENOUS VEIN GRAFT TO THE OBTUSE MARGINAL BRANCH: The proximal and distal anastomotic sites are patent. The flow into the OM is brisk. There is no evidence of significant obstructive disease. SAPHENOUS VEIN GRAFT TO RIGHT CORONARY ARTERY: The proximal and distal anastomotic sites are patent. The flow into the PDA and PLV is brisk without any evidence of significant obstructive disease. LEFT VENTRICULOGRAM: Left ventriculogram was not performed. HEMODYNAMICS: There was no gradient across the aortic valve. The left ventricular end- diastolic pressure was 14 to 16 mmHg. CONCLUSION: 1. Chronically occluded right coronary artery and subtotally occluded RCA. 2. Critical stenosis in the mid LAD with diffuse disease in the proximal and distal LAD of mild degree. 3. Patent saphenous vein graft to the obtuse marginal branch and patent saphenous vein graft to the right PDA. RECOMMENDATIONS: In view of findings and anatomy, I recommend proceeding with angioplasty and stenting of the LAD. The procedure, its risks and complications were discussed with the patient, who was in full understanding and agreement. MMODL / IJN: [id number] /
[2020-08-26] MEDS ORDERED: ACETAMINOPHEN TAB 325 MG TAB PO PRN (15:44)
[2020-08-26] MEDS: EZETIMIBE 10 MG TAB PO SCH (17:19)
[2020-08-26 17:58] VITALS: RESP 20
[2020-08-27 01:35] VITALS: TEMP 98.2
[2020-08-27] MEDS ORDERED: PRASUGREL 10 MG TAB PO SCH (09:00)
[2020-08-27] MEDS ORDERED: ASPIRIN 325 MG TAB PO SCH (09:00)
[2020-08-27] MEDS ORDERED: ASPIRIN 81 MG PO SCH (09:00)
[2020-08-27] MEDS: METOPROLOL TARTRATE 25 MG TAB PO SCH (09:09)
[2020-08-27] MEDS: SODIUM CHLORIDE 0.9% 1,000 ML IV SCH (09:09)
[2020-08-27] MEDS: EZETIMIBE 10 MG TAB PO SCH (09:09)
[2020-08-27 09:21] LABS: Mean Platelet Volume 7.9; Platelet Count 181 k/uL (150-450)
[2020-08-27 10:02] LABS: African American GFR (CKD) >90 (>60 ml/min/1.73 sqM); Anion Gap 3 mmol/L; Blood Urea Nitrogen 16 mg/dL (7-17); Calcium 8.4 mg/dL (8.4-10.2); Carbon Dioxide 24 mmol/L (22-30); Chloride 111 mmol/L (98-107); Cholesterol 191 mg/dL (<200); Glucose 78 mg/dL (74-99); HDL Cholesterol 41 mg/dL (40-60); LDL Cholesterol,Calculated 132 mg/dL (0-99); Non-African American GFR(CKD) 90 (>60 ml/min/1.73 sqM); Potassium 4.7 mmol/L (3.5-5.1); Sodium 138 mmol/L (137-145); Triglycerides 91 mg/dL (<150)
--- NOTE | 2020-08-27 10:09 | PN ---
PROGRESS NOTE Mrs. Harmon is 50-year-old female, status post coronary artery bypass grafting who presented with a non ST-segment elevation myocardial infarction, underwent cardiac catheterization was found to have patent saphenous vein graft to the OM into the right coronary artery was critical stenosis in the LAD, underwent stenting of that vessel. She is doing well this morning. She denies any chest pain, her breathing has been stable. She denies any dizziness, palpitation. She is ambulating without difficulty, continues to be in sinus mechanism. Her echocardiogram showed an ejection fraction that was normal with mild mitral and mild to moderate tricuspid regurgitation. She continues to be on aspirin once a day, Zetia 10 mg daily, metoprolol tartrate 25 mg twice a day, Effient 10 mg daily. The patient had severe allergy and myalgia from multiple statin in the past. PHYSICAL EXAMINATION: Blood pressure 143/80 with a heart rate in the 60s. LUNGS: Clear heart exam S1, S2. No S3. No rub. ABDOMEN: Soft nontender. EXTREMITIES: No edema right groin no hematoma. LAB DATA: Revealed a platelet count of 181. Her peak troponin 0.162. IMPRESSION: 1. Status post stenting of the right coronary artery. 2. Status post coronary artery bypass grafting. 3. Chronic tobacco use. 4. Hyperlipidemia, intolerant to statin. RECOMMENDATION: I will start her on low-dose beta jose alberto. She should be able to be discharged home today and followed as an outpatient. I will continue the beta jose alberto. The importance of smoking cessation was discussed with the patient. MMADDISON / ELN: [id number] /
[2020-08-27 10:48] VITALS: BP 139/67; PULSE 72
--- NOTE | 2020-08-27 12:54 | P.DS ---
Providers Date of admission: 08/26/20 10:48 Attending physician: Kerwin Wilson Consults: 08/26/20 01:00 Consult Physician Urgent Consulting Provider: Hetal Greer Consult Reason/Comments: cp Do you want consulting provider notified?: Yes 08/26/20 14:30 Consult Physician Routine Consulting Provider: [facility] Consult Reason/Comments: Post Interventional patient Do you want consulting provider notified?: Already Contacted Primary care physician: Eulalia Painetr [facility] Course: Patient is admitted for non-ST elevation microinfarction, underwent cardiac catheterization and stenting of the mid LAD and patient is clinically doing well will be discharged today. PHYSICAL EXAMINATION: GENERAL: The patient is alert and oriented x3, not in any acute distress. Well developed, well nourished. HEENT: Pupils are round and equally reacting to light. EOMI. No scleral icterus. No conjunctival pallor. Normocephalic, atraumatic. No pharyngeal erythema. No thyromegaly. CARDIOVASCULAR: S1 and S2 present. No murmurs, rubs, or gallops. PULMONARY: Chest is clear to auscultation, no wheezing or crackles. ABDOMEN: Soft, nontender, nondistended, normoactive bowel sounds. No palpable organomegaly. MUSCULOSKELETAL: No joint swelling or deformity. EXTREMITIES: No cyanosis, clubbing, or pedal edema. NEUROLOGICAL: Gross neurological examination did not reveal any focal deficits. SKIN: No rashes. Assessment and Plan Plan: -Acute non-ST elevation microinfarction -Nicotine use: Counseling was provided -Coronary artery disease -Hypertension -Hyperlipidemia Patient Condition at Discharge: Fair Plan - Discharge Summary Discharge Rx Participant: No New Discharge Prescriptions: New Prasugrel [Effient] 10 mg PO DAILY #90 tab Metoprolol Tartrate [Lopressor] 25 mg PO BID #180 tab Ezetimibe [Zetia] 10 mg PO DAILY #90 tab Continue Aspirin EC [Ecotrin] 81 mg PO DAILY Nitroglycerin Sl Tabs [Nitrostat] 0.4 mg SL Q5M PRN PRN Reason: Chest Pain Discontinued atenoloL [Atenolol] 25 mg PO DAILY PRN PRN Reason: high bp No Action Acetaminophen [Tylenol] 1,000 mg PO Q4-6H PRN PRN Reason: Pain Discharge Medication List Acetaminophen [Tylenol] 1,000 mg PO Q4-6H PRN 08/28/15 [History] Aspirin EC [Ecotrin] 81 mg PO DAILY 07/25/18 [History] Nitroglycerin Sl Tabs [Nitrostat] 0.4 mg SL Q5M PRN 08/26/20 [History] Ezetimibe [Zetia] 10 mg PO DAILY #90 tab 08/27/20 [Rx] Metoprolol Tartrate [Lopressor] 25 mg PO BID #180 tab 08/27/20 [Rx] Prasugrel [Effient] 10 mg PO DAILY #90 tab 08/27/20 [Rx] Follow up Appointment(s)/Referral(s): Hetal Greer MD [STAFF PHYSICIAN] - 09/08/20 4:00 pm Nelda Esteban MD [Primary Care Provider] - 09/01/20 1:20 pm Patient Instructions/Handouts: Chest Pain (ED) Discharge Disposition: HOME SELF-CARE
== END 2020-08-27 13:16 | disposition home or self-care (01) | DRG 247 ==
LOC: EC 23:33 → 3SCARD 08-26 01:00 → OBSVTOIN 08-26 10:48
PROVIDERS: ADMIT Hospitalist; ATTEND Hospitalist
PROC: B2111ZZ Fluoroscopy of Multiple Coronary Arteries using Low Osmolar Contrast (ICD-10-PCS; principal; 2020-08-26 08:20)
PROC: 027034Z Dilation of Coronary Artery, One Artery with Drug-eluting Intraluminal Device, Percutaneous Approach (ICD-10-PCS; principal; 2020-08-26 08:20)
PROC: 4A023N7 Measurement of Cardiac Sampling and Pressure, Left Heart, Percutaneous Approach (ICD-10-PCS; principal; 2020-08-26 08:20)
PROC: B2121ZZ Fluoroscopy of Single Coronary Artery Bypass Graft using Low Osmolar Contrast (ICD-10-PCS; principal; 2020-08-26 08:20)
DX: I21.4 Non-ST elevation (NSTEMI) myocardial infarction (principal); F17.210 Nicotine dependence, cigarettes, uncomplicated; E78.5 Hyperlipidemia, unspecified; I07.1 Rheumatic tricuspid insufficiency; I11.0 Hypertensive heart disease with heart failure; I25.110 Atherosclerotic heart disease of native coronary artery with unstable angina pectoris; I25.82 Chronic total occlusion of coronary artery; M79.7 Fibromyalgia; I50.9 Heart failure, unspecified; M32.9 Systemic lupus erythematosus, unspecified; F41.9 Anxiety disorder, unspecified; I25.2 Old myocardial infarction; Z79.02 Long term (current) use of antithrombotics/antiplatelets; Z79.82 Long term (current) use of aspirin; Z79.899 Other long term (current) drug therapy; Z82.49 Family history of ischemic heart disease and other diseases of the circulatory system; Z95.1 Presence of aortocoronary bypass graft; Z86.718 Personal history of other venous thrombosis and embolism; Z90.49 Acquired absence of other specified parts of digestive tract; Z90.89 Acquired absence of other organs
CPT/HCPCS: 36415; 71046; 80048; 80053; 80061; 83690; 83735; 83880; 84484; 85025; 85049; 85347; 85379; 85610; 85730; 93005; 93306; 93459; 96365; 96366; 96376; 99291

== ENCOUNTER 2020-12-21 13:41 | Inpatient (IN) | payer OTHER ==
[2020-12-21] MEDS ORDERED: NITROGLYCERIN OINT 1 INCH/GM PACKET TOPICAL STA (14:06)
[2020-12-21] MEDS ORDERED: ASPIRIN 81 MG PO STA (14:06)
[2020-12-21] MEDS ORDERED: NITROGLYCERIN SL TABS 0.4 MG TAB SUBLINGUAL STA (14:06)
--- NOTE | 2020-12-21 14:14 | ED ---
General Adult HPI - General Chief complaint: Arrhythmia/Palpitations Stated complaint: palpitations Time Seen by Provider: 12/21/20 13:45 Source: patient, RN notes reviewed, old records reviewed Mode of arrival: wheelchair Limitations: no limitations - History of Present Illness Initial comments: This a 50-year-old female with past medical history significant for bypass surgery multiple heart attacks. Patient also has high blood pressure high cholesterol and continues to smoke. Patient states over the last 5 days she's been having intermittent chest pain initially was relieved by nitroglycerin but now it only relieved it for a few minutes and then it comes back. Patient states any exertion brings on the chest pain as well as shortness of breath. Patient states the pain radiates to her shoulder and back. Patient denies any diaphoretic episodes or nausea. Patient denies any recent fever chills or cough per patient states this pain is very similar to anything she's had in the past for heart attacks. Patient denies abdominal pain patient denies any diarrhea. Patient denies headache patient denies numbness weakness. Patient denies li ghtheadedness or dizziness. Patient states her legs feel little more swollen today than normal. She denies any calf pain. - Related Data Home Medications Medication Instructions Recorded Confirmed Nitroglycerin Sl Tabs [Nitrostat] 0.4 mg SL Q5M PRN 08/26/20 12/21/20 Aspirin 325 mg PO DAILY 12/21/20 12/21/20 Clopidogrel Bisulfate [Plavix] 75 mg PO DAILY 12/21/20 12/21/20 Ergocalciferol (Vitamin D2) 1,250 mcg PO MO 12/21/20 12/21/20 [Drisdol (50,000 Iu)] atenoloL [Atenolol] 25 mg PO DAILY 12/21/20 12/21/20 Allergies Allergy/AdvReac Type Severity Reaction Status Date / Time No Known Allergies Allergy Verified 12/21/20 14:57 Review of Systems ROS Statement: Those systems with pertinent positive or pertinent negative responses have been documented in the HPI. ROS Other: All systems not noted in ROS Statement are negative. Past Medical History Past Medical History: Chest Pain / Angina, Deep Vein Thrombosis (DVT), Hypertension, Myocardial Infarction ([place]), Skin Disorder Additional Past Medical History / Comment(s): fibromyalgia, lupus. double bypass, CONGESTIVE HEART FAILURE, HAS BLOOD CLOT IN RT FOREARM AND ANOTHER ONE IN LEFT LEG THIGH AREA Last Myocardial Infarction Date:: 08/25/20 History of Any Multi-Drug Resistant Organisms: None Reported Past Surgical History: Adenoidectomy, Coronary Bypass/CABG, Heart Catheterization, Tonsillectomy Additional Past Surgical History / Comment(s): DOUBLE BYPASS- 2015, ANEURYSM GRAFT NOV 2015 Past Anesthesia/Blood Transfusion Reactions: No Reported Reaction Past Psychological History: Anxiety Smoking Status: Current every day smoker - Past Family History Father History Unknown: Yes Additional Family Medical History / Comment(s): UNKNOWN Brother(s) Family Medical History: No Reported History Sister(s) Family Medical History: No Reported History Mother Family Medical History: Hypertension General Exam - General Exam Comments Initial Comments: GENERAL: Patient is well-developed and well-nourished. Patient is nontoxic and well- hydrated and is in mild distress. ENT: Neck is soft and supple. No significant lymphadenopathy is noted. Oropharynx is clear. Moist mucous membranes. Neck has full range of motion without eliciting any pain. EYES: The sclera were anicteric and conjunctiva were pink and moist. Extraocular movements were intact and pupils were equal round and reactive to light. Eyelids were unremarkable. PULMONARY: Unlabored respirations. Good breath sounds bilaterally. No audible rales rhonchi or wheezing was noted. CARDIOVASCULAR: There is a regular rate and rhythm without any murmurs gallops or rubs. ABDOMEN: Soft and nontender with normal bowel sounds. No palpable organomegaly was noted. There is no palpable pulsatile mass. SKIN: Skin is clear with no lesions or rashes and otherwise unremarkable. NEUROLOGIC: Patient is alert and oriented x3. Cranial nerves II through XII are grossly intact. Motor and sensory are also intact. Normal speech, volume and content. Symmetrical smile. MUSCULOSKELETAL: Normal extremities with adequate strength and full range of motion. No lower extremity swelling or edema. No calf tenderness. LYMPHATICS: No significant lymphadenopathy is noted PSYCHIATRIC: Normal psychiatric evaluation. Limitations: no limitations Course Vital Signs 12/21/20 12/21/20 12/21/20 13:42 14:14 14:41 Temperature 98.2 F Pulse Rate 69 77 70 Respiratory 18 18 18 Rate Blood Pressure 160/86 154/89 115/72 O2 Sat by Pulse 99 100 99 Oximetry 03/16/21 15:25 Temperature Pulse Rate 57 L Respiratory 18 Rate Blood Pressure 113/73 O2 Sat by Pulse 98 Oximetry Medical Decision Making - Medical Decision Making EKG shows normal sinus rhythm at 73 bpm [place] interval is 162 QRS is under a QT interval is 408 QTC is 449. Patient's EKG shows no ST segment elevation or depression. Chest x-ray shows no acute abnormality. I started the patient heparin because of the unstable angina. Patient's troponin was mildly elevated. I spoke with sheet agreed to admit the patient admitted the patient wrote admitting orders. I continued heparin Nitropaste and the floor. - Lab Data Result diagrams: 12/21/20 14:42 12/21/20 14:42 Lab Results 12/21/20 12/21/20 12/21/20 Range/Units 14:42 14:42 14:42 WBC 6.8 (3.8-10.6) k/uL RBC 4.38 (3.80-5.40) m/uL Hgb 13.6 (11.4-16.0) gm/dL Hct 41.3 (34.0-46.0) % MCV 94.1 (80.0-100.0) fL MCH 31.0 (25.0-35.0) pg MCHC 32.9 (31.0-37.0) g/dL RDW 13.5 (11.5-15.5) % Plt Count 190 (150-450) k/uL MPV 8.0 Neutrophils % 51 % Lymphocytes % 39 % Monocytes % 7 % Eosinophils % 1 % Basophils % 1 % Neutrophils # 3.5 (1.3-7.7) k/uL Lymphocytes # 2.7 (1.0-4.8) k/uL Monocytes # 0.5 (0-1.0) k/uL Eosinophils # 0.1 (0-0.7) k/uL Basophils # 0.0 (0-0.2) k/uL PT 9.7 (9.0-12.0) sec INR 0.9 (<1.2) APTT 24.5 (22.0-30.0) sec Sodium 138 (137-145) mmol/L Potassium 3.6 (3.5-5.1) mmol/L Chloride 105 (98-107) mmol/L Carbon Dioxide 26 (22-30) mmol/L Anion Gap 7 mmol/L BUN 22 H (7-17) mg/dL Creatinine 0.66 (0.52-1.04) mg/dL Est GFR (CKD-EPI)AfAm >90 (>60 ml/min/1.73 sqM) Est GFR (CKD-EPI)NonAf >90 (>60 ml/min/1.73 sqM) Glucose 95 (74-99) mg/dL Calcium 9.2 (8.4-10.2) mg/dL Magnesium 2.0 (1.6-2.3) mg/dL Total Bilirubin 0.3 (0.2-1.3) mg/dL AST 22 (14-36) U/L ALT 11 (4-34) U/L Alkaline Phosphatase 94 (38-126) U/L Troponin I (0.000-0.034) ng/mL NT-Pro-B Natriuret Pep pg/mL Total Protein 6.9 (6.3-8.2) g/dL Albumin 4.0 (3.5-5.0) g/dL 12/21/20 12/21/20 Range/Units 14:42 14:42 WBC (3.8-10.6) k/uL RBC (3.80-5.40) m/uL Hgb (11.4-16.0) gm/dL Hct (34.0-46.0) % MCV (80.0-100.0) fL MCH (25.0-35.0) pg MCHC (31.0-37.0) g/dL RDW (11.5-15.5) % Plt Count (150-450) k/uL MPV Neutrophils % % Lymphocytes % % Monocytes % % Eosinophils % % Basophils % % Neutrophils # (1.3-7.7) k/uL Lymphocytes # (1.0-4.8) k/uL Monocytes # (0-1.0) k/uL Eosinophils # (0-0.7) k/uL Basophils # (0-0.2) k/uL PT (9.0-12.0) sec INR (<1.2) APTT (22.0-30.0) sec Sodium (137-145) mmol/L Potassium (3.5-5.1) mmol/L Chloride (98-107) mmol/L Carbon Dioxide (22-30) mmol/L Anion Gap mmol/L BUN (7-17) mg/dL Creatinine (0.52-1.04) mg/dL Est GFR (CKD-EPI)AfAm (>60 ml/min/1.73 sqM) Est GFR (CKD-EPI)NonAf (>60 ml/min/1.73 sqM) Glucose (74-99) mg/dL Calcium (8.4-10.2) mg/dL Magnesium (1.6-2.3) mg/dL Total Bilirubin (0.2-1.3) mg/dL AST (14-36) U/L ALT (4-34) U/L Alkaline Phosphatase (38-126) U/L Troponin I 0.054 H* (0.000-0.034) ng/mL NT-Pro-B Natriuret Pep 983 pg/mL Total Protein (6.3-8.2) g/dL Albumin (3.5-5.0) g/dL Critical Care Time Critical Care Time: Yes Total Critical Care Time: 35 Disposition Clinical Impression: Unstable angina pectoris Disposition: ADMITTED IP TO THIS HOSP Referrals: Nelda Esteban MD [Primary Care Provider] - 1-2 days Time of Disposition: 15:47
[2020-12-21 14:52] LABS: Basophils % (A) 1 %; Eosinophils # (A) 0.1 k/uL (0-0.7); Eosinophils % (A) 1 %; HCT 41.3 % (34.0-46.0); HGB 13.6 gm/dL (11.4-16.0); Lymphocytes # (A) 2.7 k/uL (1.0-4.8); Lymphocytes % (A) 39 %; MCHC 32.9 g/dL (31.0-37.0); MCV 94.1 fL (80.0-100.0); Monocytes # (A) 0.5 k/uL (0-1.0); Monocytes % (A) 7 %; Neutrophils # (A) 3.5 k/uL (1.3-7.7); Neutrophils % (A) 51 %; Platelet Count 190 k/uL (150-450); RBC 4.38 m/uL (3.80-5.40); RDW 13.5 % (11.5-15.5); WBC 6.8 k/uL (3.8-10.6)
[2020-12-21 15:00] LABS: ALT 11 U/L (4-34); AST 22 U/L (14-36); African American GFR (CKD) >90 (>60 ml/min/1.73 sqM); Alkaline Phosphatase 94 U/L (38-126); Anion Gap 7 mmol/L; Blood Urea Nitrogen 22 mg/dL (7-17); Calcium 9.2 mg/dL (8.4-10.2); Carbon Dioxide 26 mmol/L (22-30); Chloride 105 mmol/L (98-107); Glucose 95 mg/dL (74-99); INR 0.9 (<1.2); Non-African American GFR(CKD) >90 (>60 ml/min/1.73 sqM); Partial Thromboplastin Time 24.5 sec (22.0-30.0); Potassium 3.6 mmol/L (3.5-5.1); Prothrombin Time 9.7 sec (9.0-12.0); Sodium 138 mmol/L (137-145); Total Bilirubin 0.3 mg/dL (0.2-1.3); Total Protein 6.9 g/dL (6.3-8.2)
--- NOTE | 2020-12-21 15:06 | XR ---
EXAMINATION TYPE: XR chest 2V DATE OF EXAM: 12/21/2020 COMPARISON: 08/26/2020 HISTORY: 50-year-old female with chest pain TECHNIQUE: PA and lateral views FINDINGS: Median sternotomy wires are present. The cardiomediastinal silhouette, aorta, and pulmonary vasculatu re are within normal limits. Lungs and pleural spaces are clear. IMPRESSION: No acute cardiopulmonary process.
[2020-12-21] MEDS ORDERED: HEPARIN SODIUM,PORCINE 5,000 UNIT/ML 1 ML VIAL IV ONE (15:41)
[2020-12-21] MEDS ORDERED: HEPARIN SOD,PORK IN 0.45% NACL 25,000 UNIT in 0.45% NACL 1 250ML.BAG IV SCH (15:45)
[2020-12-21] MEDS ORDERED: NITROGLYCERIN SL TABS 0.4 MG TAB SUBLINGUAL PRN (15:48)
[2020-12-21] MEDS: NITROGLYCERIN OINT 1 INCH/GM PACKET TOPICAL SCH (17:50)
[2020-12-22] MEDS: NITROGLYCERIN OINT 1 INCH/GM PACKET TOPICAL SCH ×2 (00:17→06:27)
[2020-12-22] MEDS: FAMOTIDINE 20 MG/2 ML VIAL IV SCH ×2 (00:21→10:06)
[2020-12-22] MEDS ORDERED: HEPARIN SODIUM,PORCINE 10,000 UNIT in SODIUM CHLORIDE 0.9% 1,000 ML IRRIGATION PRN (07:00)
[2020-12-22] MEDS ORDERED: HEPARIN SODIUM,PORCINE 2,500 UNIT in SODIUM CHLORIDE 0.9% 250 ML IRRIGATION PRN (07:00)
[2020-12-22 08:17] LABS: Cholesterol 173 mg/dL (<200); HDL Cholesterol 50 mg/dL (40-60); LDL Cholesterol,Calculated 98 mg/dL (0-99); Triglycerides 127 mg/dL (<150)
[2020-12-22] MEDS ORDERED: ASPIRIN 325 MG TAB PO SCH (09:00)
[2020-12-22] MEDS ORDERED: atenoloL 25 MG TAB PO SCH ×2 (09:00→21:00)
[2020-12-22] MEDS ORDERED: SODIUM CHLORIDE 0.9% 1,000 ML in EMPTY BAG 1 BAG IV ONE (09:49)
[2020-12-22] MEDS ORDERED: ATORVASTATIN 80 MG TAB PO STA (09:49)
[2020-12-22] MEDS ORDERED: ASPIRIN 325 MG TAB PO STA (09:49)
[2020-12-22] MEDS ORDERED: ALPRAZolam 0.25 MG TAB PO PRN (09:49)
[2020-12-22] MEDS ORDERED: NITROGLYCERIN SL TABS 0.4 MG TAB SUBLINGUAL PRN ×2 (09:49→12:28)
[2020-12-22] MEDS ORDERED: ALPRAZolam 0.5 MG TAB PO PRN (09:49)
--- NOTE | 2020-12-22 09:56 | P.HPIM ---
History of Present Illness This is a pleasant 50 years old female with past medical history of coronary artery disease, history of coronary artery bypass grafting 2014, history of right coronary artery stented, cigarette smoker. She is a patient of Dr. 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 Preston She was recently discharged from the hospital on 08/26-08/27/24 note STEMI where she underwent cardiac cath and found to have patent saphenous vein graft to the OM and to the right coronary artery but had critical stenosis in LAD status post new stent placement. Presents because of palpitation off and on for 5 days associated with central chest pain radiating to the shoulder, 04/16, felt like burning and achy associated with some dyspnea and sweating but no vomiting. Her blood pressure at home was elevated 167/105, patient states she was then turned treatment and she was taking her aspirin and Plavix however she continued to smoke about 1 pack per day, she canceled and she agrees to quit. She denies alcohol or illicit drugs Vitals are stable. Labs reviewed and show an unremarkable CBC, BMP, liver enzymes, INR. Her troponin were elevated 0.05, 0.08 and 0.10. ProBNP is 93. EKG showing normal sinus rhythm at 73 BPM with no significant ST-T changes. Chest x-ray: No acute process In the emergency room patient was started on heparin drip and cardiology team were consulted Review of Systems CONSTITUTIONAL: No fever, no malaise, no fatigue. HEENT: No recent visual problems or hearing problems. Denied any sore throat. CARDIOVASCULAR: No orthopnea, PND, no palpitations, no syncope. PULMONARY: No shortness of breath, no cough, no hemoptysis. GASTROINTESTINAL: No diarrhea, no nausea, no vomiting, no abdominal pain. Nor moactive bowel sounds. NEUROLOGICAL: No headaches, no weakness, no numbness. HEMATOLOGICAL: Denies any bleeding or petechiae. GENITOURINARY: Denies any burning micturition, frequency, or urgency. MUSCULOSKELETAL/RHEUMATOLOGICAL: Denies any joint pain, swelling, or any muscle pain. ENDOCRINE: Denies any polyuria or polydipsia. Past Medical History Past Medical History: Chest Pain / Angina, Deep Vein Thrombosis (DVT), Hypertension, Myocardial Infarction ([place]), Skin Disorder Additional Past Medical History / Comment(s): fibromyalgia, lupus. double bypass, CONGESTIVE HEART FAILURE, HAS BLOOD CLOT IN RT FOREARM AND ANOTHER ONE IN LEFT LEG THIGH AREA Last Myocardial Infarction Date:: 08/25/20 History of Any Multi-Drug Resistant Organisms: None Reported Past Surgical History: Adenoidectomy, Coronary Bypass/CABG, Heart Catheterization With Stent, Tonsillectomy Additional Past Surgical History / Comment(s): DOUBLE BYPASS- 2015, ANEURYSM GRAFT NOV 2015 Past Anesthesia/Blood Transfusion Reactions: No Reported Reaction Date of Last Stent Placement:: August 2020 Smoking Status: Current every day smoker - Past Family History Father History Unknown: Yes Additional Family Medical History / Comment(s): UNKNOWN Brother(s) Family Medical History: No Reported History Sister(s) Family Medical History: No Reported History Mother Family Medical History: Hypertension Medications and Allergies Home Medications Medication Instructions Recorded Confirmed Type Nitroglycerin Sl Tabs [Nitrostat] 0.4 mg SL Q5M PRN 08/26/20 12/21/20 History Aspirin 325 mg PO DAILY 12/21/20 12/21/20 History Clopidogrel Bisulfate [Plavix] 75 mg PO DAILY 12/21/20 12/21/20 History Ergocalciferol (Vitamin D2) 1,250 mcg PO MO 12/21/20 12/21/20 History [Drisdol (50,000 Iu)] atenoloL [Atenolol] 25 mg PO DAILY 12/21/20 12/21/20 History Allergies Allergy/AdvReac Type Severity Reaction Status Date / Time No Known Allergies Allergy Verified 12/21/20 14:57 Physical Exam Vitals: Vital Signs Temp Pulse Pulse Resp BP BP BP 12/22/20 07:38 86 147/74 12/22/20 07:36 86 134/75 12/22/20 07:34 85 139/65 12/22/20 07:32 87 176/86 12/22/20 07:30 98.1 F 92 161/77 12/22/20 04:00 53 L 16 119/69 12/22/20 01:07 66 18 12/22/20 00:00 97.9 F 66 18 93/50 12/21/20 20:00 97.9 F 68 18 96/58 12/21/20 17:57 98.8 F 67 18 106/65 12/21/20 17:00 98.3 F 68 18 100/67 12/21/20 16:22 98.3 F 63 18 115/73 12/21/20 15:25 57 L 18 113/73 12/21/20 14:41 70 18 115/72 12/21/20 14:14 77 18 154/89 12/21/20 13:42 98.2 F 69 18 160/86 Pulse Ox 12/22/20 07:38 97 12/22/20 07:36 12/22/20 07:34 12/22/20 07:32 12/22/20 07:30 99 12/22/20 04:00 100 12/22/20 01:07 12/22/20 00:00 98 12/21/20 20:00 98 12/21/20 17:57 100 12/21/20 17:00 98 12/21/20 16:22 99 12/21/20 15:25 98 12/21/20 14:41 99 12/21/20 14:14 100 12/21/20 13:42 99 Intake and Output 12/21/20 12/22/20 12/22/20 22:59 06:59 14:59 Intake Total 71.698 Balance 71.698 Intake: Intake, IV Titration 71.698 Amount Heparin Sod,Pork in 0.45% 71.698 NaCl 25,000 unit In 0.45 % NaCl 1 250ml.bag @ 12 UNITS/KG/HR 8.981 mls/hr IV .Q24H [facility] Rx#: [id number] Other: Voiding Method Toilet # Voids 1 Weight 74.843 kg 76.2 kg GENERAL: The patient is alert and oriented x3, not in any acute distress. Well developed, well nourished. HEENT: Pupils are round and equally reacting to light. EOMI. No scleral icterus. No conjunctival pallor. Normocephalic, atraumatic. No pharyngeal erythema. No thyromegaly. CARDIOVASCULAR: S1 and S2 present. No murmurs, rubs, or gallops. PULMONARY: Chest is clear to auscultation, no wheezing or crackles. ABDOMEN: Soft, nontender, nondistended, normoactive bowel sounds. No palpable organomegaly. MUSCULOSKELETAL: No joint swelling or deformity. EXTREMITIES: No cyanosis, clubbing, or pedal edema. NEUROLOGICAL: Gross neurological examination did not reveal any focal deficits. SKIN: No rashes. No petechiae Results CBC & Chem 7: 12/21/20 14:42 12/21/20 14:42 Labs: Abnormal Lab Results - Last 24 Hours (Table) 12/21/20 12/21/20 12/21/20 Range/Units 14:42 14:42 16:38 APTT (22.0-30.0) sec BUN 22 H (7-17) mg/dL Troponin I 0.054 H* 0.088 H* (0.000-0.034) ng/mL 12/21/20 12/21/20 Range/Units 18:55 22:36 APTT 86.6 H (22.0-30.0) sec BUN (7-17) mg/dL Troponin I 0.106 H* (0.000-0.034) ng/mL Thrombosis Risk Factor Assmnt - Choose All That Apply Any of the Below Risk Factors Present?: Yes Each Factor Represents 1 point: Age 41-60 years, Obesity (BMI >25) Other Risk Factors: Yes Each Risk Factor Represents 3 Points: History of DVT/PE Thrombosis Risk Factor Assessment Total Risk Factor Score: 5 Thrombosis Risk Factor Assessment Level: High Risk Assessment and Plan Assessment: acute None STEMI Hypertension. Hyperlipidemia. Nicotine dependence History of coronary artery disease status post bypass grafting in 2014 and history of note STEMI status post stent of the LAD on 08/2020 Plan: This is a pleasant 50 years old female who presents with non-STEMI. We will trend troponin, continue with heparin drip, aspirin and Plavix. I discussed the case with Cardiology consult team and the plan for cardiac cath today Labs and medication were reviewed.. Continue same treatment. Continue with symptomatic treatment. Resume home medication. Monitor lytes and vitals. DVT and GI prophylaxis. Further recommendations depends on the clinical course of the patient DVT prophylaxis: heparin GI Prophylaxis: Pepcid Prognosis is guarded
[2020-12-22] MEDS: CLOPIDOGREL 75 MG TAB PO SCH (10:06)
[2020-12-22] MEDS ORDERED: LIDOCAINE 1% INJ 10MG/ML (20 ML MDV) ONE (10:25)
[2020-12-22] MEDS ORDERED: IV FLUID CONTINUATION 1,000 ML IV ONE (10:42)
[2020-12-22] MEDS ORDERED: fentaNYL (PF) 50 MCG/ML 2 ML AMP ONE (10:43)
[2020-12-22] MEDS ORDERED: fentaNYL (PF) 50 MCG/ML 2 ML AMP IV ONE (11:08)
[2020-12-22] MEDS ORDERED: LIDOCAINE 1% INJ 10MG/ML (20 ML MDV) SQ ONE (11:12)
[2020-12-22] MEDS ORDERED: MIDAZOLAM 2 MG/2 ML VIAL IV ONE (11:17)
[2020-12-22] MEDS ORDERED: HEPARIN SODIUM 1,000 UN/ML (10ML VL) ONE (11:19)
[2020-12-22] MEDS ORDERED: HEPARIN SODIUM 1,000 UN/ML (10ML VL) IV ONE (11:21)
[2020-12-22] MEDS ORDERED: NITROGLYCERIN 1000MCG/10ML SYRINGE INTRACORON ONE (11:31)
[2020-12-22] MEDS ORDERED: IOPAMIDOL-370 125ML BTL INJ ONE (11:35)
[2020-12-22] MEDS ORDERED: IOPAMIDOL-370 100ML BTL INJ ONE (12:03)
[2020-12-22] MEDS ORDERED: MAG HYDROX/AL HYDROX/SIMETH 30 ML CUP PO PRN (12:28)
[2020-12-22] MEDS ORDERED: RX INFO: IV CONTRAST WAS GIVEN 1 EACH MISC MISCELLANE PRN (12:28)
[2020-12-22] MEDS ORDERED: ZOLPIDEM 5 MG TAB PO PRN (12:28)
[2020-12-22] MEDS ORDERED: ATROPINE SULFATE 0.1 MG/ML 10ML SYRINGE IV PRN (12:28)
[2020-12-22] MEDS ORDERED: SODIUM CHLORIDE 0.9% 1,000 ML IV SCH (12:30)
--- NOTE | 2020-12-22 13:27 | P.CRDCN ---
History of Present Illness Consult date: 12/22/20 History of present illness: HISTORY OF PRESENT ILLNESS: This is a 50-year-old female with a past medical history significant for hypertension, hyperlipidemia, nicotine dependence, coronary artery disease with previous CABG and subsequent PCI to LAD. Patient follows in the office with Dr. Greer. We have been asked to see the patient in consultation for chest pain. Patient examined at the bedside. Patient reports she has been having midsternal chest pain and shortness of breath for the last 5 days. She states the pain radiates to her left arm, left shoulder and left shoulder blade. She states the pain occurs anytime she exerts herself. She states "I have been taking nitro like candy". She states the nitro was relieving her chest pain except yesterday when she took the nitro did not relieve her chest pain which made her nervous so she came to the emergency room for further evaluation. EKG reveals sinus mechanism. Heart rate 73. Mild ST depression inferiorly. Chest xray negative for acute process Laboratory data: WBC 6.8. Hemoglobin 13.6. Platelet count 190. Sodium 138. Potassium 3.6. BUN 22. Creatinine 0.66. Magnesium 2.0. BNP 983. Troponin 0.054. 0.088. 0.106. Current home cardiac medications include atenolol 25 mg daily, Plavix 75 mg daily, aspirin 325 mg daily. Most recent echocardiogram obtained in August 2020 revealed ejection fraction 55-60%, mild mitral regurgitation, [id number] tricuspid regurgitation, and mild to moderate pulmonary hypertension Cardiac catheterization history: August 2020. Patient had PCI to mid LAD. Additional findings revealed chronically occluded RCA, subtotally occluded RCA, patent SVG to OM and patent SVG to right PDA. REVIEW OF SYSTEMS: At the time of my exam: CONSTITUTIONAL: Denies fever or chills. HEENT: Denies blurred vision, vision changes, or eye pain. Denies hemoptysis CARDIOVASCULAR: Denies chest pain. Denies orthopnea. Denies PND. Denies palpitations RESPIRATORY: Denies shortness of breath. GASTROINTESTINAL: Denies abdominal pain. Denies nausea or vomiting. HEMATOLOGIC: Denies bleeding disorders. GENITOURINARY: Denies any blood in urine. SKIN: Denies pruitis. Denies rash. PHYSICAL EXAM: VITAL SIGNS: Reviewed. GENERAL: Well-developed in no acute distress. HEENT: Head is normocephalic. Pupils are equal, round. Sclerae anicteric. Mucous membranes of the mouth are moist. Neck supple. No JVD or thyromegaly LUNGS: Respirations even and unlabored. Lungs essentially clear to auscultation bilaterally. HEART: Regular rate and rhythm. S1 and S2 heard. ABDOMEN: Soft. Nondistended. Nontender. EXTREMITIES: Normal range of motion. No clubbing or cyanosis. Peripheral pulses intact. No lower extremity edema NEUROLOGIC: Awake and alert. Oriented x 3. ASSESSMENT: Non-ST elevated myocardial infarction Coronary artery disease with previous CABG 2015, and subsequent PCI to LAD, August 2020 Hypertension Hyperlipidemia, on Repatha outpatient Nicotine dependence, patient smokes 1/2 pack per day PLAN: Resume home cardiac medications Continue IV heparin Obtain 2-D echo to assess cardiac structure and function Patient to undergo cardiac catheterization today with Dr. Greer Further recommendations pending patient's course Nurse practitioner note has been reviewed by physician. Signing provider agrees with the documented findings, assessment, and plan of care. Past Medical History Past Medical History: Chest Pain / Angina, Deep Vein Thrombosis (DVT), Hypert ension, Myocardial Infarction (DE), Skin Disorder Additional Past Medical History / Comment(s): fibromyalgia, lupus. double bypass, CONGESTIVE HEART FAILURE, HAS BLOOD CLOT IN RT FOREARM AND ANOTHER ONE IN LEFT LEG THIGH AREA Last Myocardial Infarction Date:: 08/25/20 History of Any Multi-Drug Resistant Organisms: None Reported Past Surgical History: Adenoidectomy, Coronary Bypass/CABG, Heart Cath eterization With Stent, Tonsillectomy Additional Past Surgical History / Comment(s): DOUBLE BYPASS- 2015, ANEURYSM GRAFT NOV 2015 Past Anesthesia/Blood Transfusion Reactions: No Reported Reaction Date of Last Stent Placement:: August 2020 Smoking Status: Current every day smoker - Past Family History Father History Unknown: Yes Additional Family Medical History / Comment(s): UNKNOWN Brother(s) Family Medical History: No Reported History Sister(s) Family Medical History: No Reported History Mother Family Medical History: Hypertension Medications and Allergies Home Medications Medication Instructions Recorded Confirmed Type Nitroglycerin Sl Tabs [Nitrostat] 0.4 mg SL Q5M PRN 08/26/20 12/21/20 History Aspirin 325 mg PO DAILY 12/21/20 12/21/20 History Clopidogrel Bisulfate [Plavix] 75 mg PO DAILY 12/21/20 12/21/20 History Ergocalciferol (Vitamin D2) 1,250 mcg PO MO 12/21/20 12/21/20 History [Drisdol (50,000 Iu)] atenoloL [Atenolol] 25 mg PO DAILY 12/21/20 12/21/20 History Allergies Allergy/AdvReac Type Severity Reaction Status Date / Time No Known Allergies Allergy Verified 12/21/20 14:57 Physical Exam Vitals: Vital Signs Temp Pulse Pulse Resp BP BP BP 12/22/20 12:57 59 L 16 146/73 12/22/20 12:43 59 L 16 145/79 12/22/20 12:28 59 L 16 177/79 12/22/20 08:10 98.1 F 58 L 16 136/63 12/22/20 07:38 86 147/74 12/22/20 07:36 86 134/75 12/22/20 07:34 85 139/65 12/22/20 07:32 87 176/86 12/22/20 07:30 98.1 F 92 161/77 12/22/20 04:00 53 L 16 119/69 12/22/20 01:07 66 18 12/22/20 00:00 97.9 F 66 18 93/50 12/21/20 20:00 97.9 F 68 18 96/58 12/21/20 17:57 98.8 F 67 18 106/65 12/21/20 17:00 98.3 F 68 18 100/67 12/21/20 16:22 98.3 F 63 18 115/73 12/21/20 15:25 57 L 18 113/73 12/21/20 14:41 70 18 115/72 12/21/20 14:14 77 18 154/89 12/21/20 13:42 98.2 F 69 18 160/86 Pulse Ox 12/22/20 12:57 96 12/22/20 12:43 97 12/22/20 12:28 97 12/22/20 08:10 99 12/22/20 07:38 97 12/22/20 07:36 12/22/20 07:34 12/22/20 07:32 03/17/21 07:30 99 12/22/20 04:00 100 12/22/20 01:07 12/22/20 00:00 98 12/21/20 20:00 98 12/21/20 17:57 100 12/21/20 17:00 98 12/21/20 16:22 99 12/21/20 15:25 98 12/21/20 14:41 99 12/21/20 14:14 100 12/21/20 13:42 99 Intake and Output 12/21/20 12/22/20 12/22/20 22:59 06:59 14:59 Intake Total 71.698 324.216 Balance 71.698 324.216 Intake: IV 250 Intake, IV Titration 71.698 74.216 Amount Heparin Sod,Pork in 0.45% 71.698 74.216 NaCl 25,000 unit In 0.45 % NaCl 1 250ml.bag @ 12 UNITS/KG/HR 8.981 mls/hr IV .Q24H [facility] Rx#: [id number] Other: Voiding Method Toilet Toilet # Voids 1 0 # Bowel Movements 0 Weight 74.843 kg 76.2 kg 76.2 kg Results 12/21/20 14:42 12/21/20 14:42 Cardiac Enzymes 12/21/20 12/21/20 12/21/20 Range/Units 14:42 14:42 16:38 AST 22 (14-36) U/L Troponin I 0.054 H* 0.088 H* (0.000-0.034) ng/mL 12/21/20 Range/Units 18:55 AST (14-36) U/L Troponin I 0.106 H* (0.000-0.034) ng/mL Coagulation 12/21/20 12/21/20 12/22/20 Range/Units 14:42 22:36 07:21 PT 9.7 (9.0-12.0) sec APTT 24.5 86.6 H 51.5 H (22.0-30.0) sec Lipids 12/22/20 Range/Units 07:21 Triglycerides 127 (<150) mg/dL Cholesterol 173 (<200) mg/dL HDL Cholesterol 50 (40-60) mg/dL CBC 12/21/20 Range/Units 14:42 WBC 6.8 (3.8-10.6) k/uL RBC 4.38 (3.80-5.40) m/uL Hgb 13.6 (11.4-16.0) gm/dL Hct 41.3 (34.0-46.0) % Plt Count 190 (150-450) k/uL Comprehensive Metabolic Panel 12/21/20 Range/Units 14:42 Sodium 138 (137-145) mmol/L Potassium 3.6 (3.5-5.1) mmol/L Chloride 105 (98-107) mmol/L Carbon Dioxide 26 (22-30) mmol/L BUN 22 H (7-17) mg/dL Creatinine 0.66 (0.52-1.04) mg/dL Glucose 95 (74-99) mg/dL Calcium 9.2 (8.4-10.2) mg/dL AST 22 (14-36) U/L ALT 11 (4-34) U/L Alkaline Phosphatase 94 (38-126) U/L Total Protein 6.9 (6.3-8.2) g/dL Albumin 4.0 (3.5-5.0) g/dL Current Medications Generic Name Dose Route Start Last Admin Trade Name Freq PRN Reason Stop Dose Admin Al Hydroxide/Mg Hydroxide 30 ml 12/22/20 12:28 Mag Hydrox/Al Hydrox/Simeth 30 Ml Cup PO Q4HR PRN Heartburn Alprazolam 0.25 mg 12/22/20 09:49 Alprazolam 0.25 Mg Tab PO Q6HR PRN Mild Anxiety Alprazolam 0.5 mg 12/22/20 09:49 Alprazolam 0.5 Mg Tab PO Q6HR PRN Moderate Anxiety Aspirin 81 mg 12/23/20 09:00 Aspirin 81 Mg PO DAILY [facility] Atenolol 25 mg 12/23/20 09:00 Atenolol 25 Mg Tab PO DAILY [facility] Atorvastatin Calcium 40 mg 12/23/20 09:00 Atorvastatin 40 Mg Tab PO DAILY [facility] Atropine Sulfate 0.5 mg 12/22/20 12:28 Atropine Sulfate 0.1 Mg/Ml 10ml Syringe IV ONCE PRN Symptomatic Bradycardia Clopidogrel Bisulfate 75 mg 12/22/20 09:00 12/22/20 10:06 Clopidogrel 75 Mg Tab PO 75 mg DAILY [facility] Administration Ergocalciferol 1,250 mcg 12/27/20 09:00 Ergocalciferol 1,250 Mcg (50,000 Iu) Capsule PO MO [facility] Famotidine 20 mg 12/22/20 21:00 Famotidine 20 Mg Tab PO Q12HR [facility] Sodium Chloride 1,000 ml/ IV 1,000 mls @ 76.2 mls/hr 12/22/20 09:49 12/22/20 10:06 Solution IV 12/22/20 22:56 76.2 mls/hr .Q13H8M ONE Administration 1 ML/KG/HR Heparin Sodium (Porcine) 10, 1,001 mls @ 999 mls/hr 12/22/20 07:00 000 unit/ Sodium Chloride IRRIGATION 12/22/20 23:00 ONCE PRN INTRA-OP Heparin Sodium (Porcine) 2,500 250.5 mls @ 250 mls/hr 12/22/20 07:00 unit/ Sodium Chloride IRRIGATION 12/22/20 23:00 ONCE PRN INTRA-OP Sodium Chloride 1,000 mls @ 75 mls/hr 12/22/20 12:30 12/22/20 12:58 Saline 0.9% IV 12/22/20 19:09 75 mls/hr .[id number] [facility] Administration Lisinopril 5 mg 12/23/20 09:00 Lisinopril 5 Mg Tab PO DAILY [facility] Miscellaneous Information 1 each 12/22/20 12:28 Rx Info: Iv Contrast Was Given 1 Each Misc MISCELLANE 12/24/20 12:28 DAILY PRN Per Protocol Nitroglycerin 0.4 mg 12/21/20 15:48 12/22/20 07:32 Nitroglycerin Sl Tabs 0.4 Mg Tab SUBLINGUAL 0.4 mg Q5M PRN Administration Chest Pain Nitroglycerin 0.4 mg 12/22/20 12:28 Nitroglycerin Sl Tabs 0.4 Mg Tab SUBLINGUAL Q5M PRN Chest Pain Zolpidem Tartrate 5 mg 12/22/20 12:28 Zolpidem 5 Mg Tab PO HS PRN Insomnia Intake and Output 12/21/20 12/22/20 12/22/20 22:59 06:59 14:59 Intake Total 71.698 324.216 Balance 71.698 324.216 Intake: IV 250 Intake, IV Titration 71.698 74.216 Amount Heparin Sod,Pork in 0.45% 71.698 74.216 NaCl 25,000 unit In 0.45 % NaCl 1 250ml.bag @ 12 UNITS/KG/HR 8.981 mls/hr IV .Q24H [facility] Rx#: [id number] Other: Voiding Method Toilet Toilet # Voids 1 0 # Bowel Movements 0 Weight 74.843 kg 76.2 kg 76.2 kg Patient Weight 12/23/20 06:59 Weight 76.2 kg 12/21/20 14:42 12/21/20 14:42
--- NOTE | 2020-12-22 13:51 | CC ---
CARDIAC CATHETERIZATION REPORT Mrs. 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 In view of that, recommendation was made regarding cardiac catheterization. The procedure as well as the risks and the complications were discussed with the patient who is in full understanding and agreement. PROCEDURE: Patient was brought to the laborer chemical processing in a fasting semi-sedated state after receiving fentanyl and Benadryl and achieving moderate conscious sedated state. Using Xylocaine anesthesia and Seldinger technique, a 6-Cambodian sheath was introduced in the right femoral artery. Selective right and left coronary angiography performed using 6-Cambodian 4 bend right and left Shira catheter. Multiple views of the coronary artery including hemiaxial views were obtained. Following that, the 6-Cambodian right Shira was used to cannulate the saphenous vein graft to the right coronary artery and to the obtuse marginal branch. Images of the grafts were obtained. Following that, a 6-Cambodian tight pigtail catheter was introduced in the left ventricle and pressures were obtained. Following that, catheter was removed. Images were reviewed. FINDINGS: LEFT MAIN: This is a large-size vessel, bifurcating into left circumflex, left anterior descending artery. Left main coronary artery has a 30% to 40% distal plaque. LEFT ANTERIOR DESCENDING ARTERY: This is a large-sized vessel reaching to the apex with a wraparound apex segment. The stented segment proximally is patent. Distal to the stent, there is a 99% stenosis and there is another 80% to 90% stenosis in the proximal left anterior descending artery. The rest of the vessel has diffuse intimal disease without any evidence of high-grade stenosis. LEFT CIRCUMFLEX: This is a nondominant vessel giving rise to an obtuse marginal branch and beyond that there is no significant flow. There is competitive flow into the obtuse marginal branch. The proximal left circumflex has a 90% stenosis. RIGHT CORONARY ARTERY: This is a dominant vessel bifurcating distally PDA and posterolateral segment and branches. The mid right coronary artery is diffusely disease with area stenosis up to 90%. SAPHENOUS VEIN GRAFT TO THE RIGHT CORONARY ARTERY: The proximal and distal anastomotic sites are patent. The flow into the PDA is brisk. There is no evidence of high-grade stenosis. SAPHENOUS VEIN GRAFT TO THE OBTUSE MARGINAL BRANCH: The proximal and distal anastomotic sites are patent. The flow in the obtuse marginal branch is brisk. LEFT VENTRICULOGRAM: Left ventriculogram was not performed. HEMODYNAMICS: There was no gradient across the aortic valve. The left ventricular end-diastolic pressure was 14-16 mmHg. CONCLUSION: 1. Severe triple-vessel coronary artery disease with critical stenosis distal to the stented segment in the LAD and in the proximal LAD and distal left main. 2. Critical stenosis in the RCA and the left circumflex. 3. Patent saphenous vein graft to the PDA and to the obtuse marginal branch. RECOMMENDATION: In view of finding anatomy, I recommend proceeding with angioplasty and stenting of the LAD. The procedure as well as the risks and the complications were discussed with the patient who is in full understanding and agreement. MMSUEL / IJN: [id number] /
--- NOTE | 2020-12-22 14:00 | PTCA ---
PERCUTANEOUSTRANS CORORONARY ANGIOGRAPHY Mrs. Harmon is a 50-year-old female with a known history of coronary artery disease who presented with non STEMI presentation and underwent cardiac catheterization and was found to have critical stenosis in the proximal and mid LAD. In view of that, recommendation was made regarding angioplasty and stenting. The procedure as well as the risks and the complications were discussed with the patient who is in full understanding and agreement. PROCEDURE: A 6-Hebrew FL4 guiding catheter introduced in the system. After cannulating the left main, a 0.014 balanced medium weight J-wire was advanced across the lesion and positioned in the distal LAD. Subsequently a 2.25 x 12 mm NC Trek balloon was advanced and multiple inflations at 10 atmospheres were done. Following that, the balloon was removed and a 2.25 x 15 mm Xience Taryn stent was advanced, deployed and post dilated at 16 atmospheres. Following that, in the proximal segment, a 2.5 x 18 mm Xience Taryn stent was deployed and postdilated at 16 atmospheres. Following that, a 3.0 x 15 mm NC Trek balloon was advanced and inflations in the proximal LAD and distal left main were done at a maximum of 12 atmospheres. Following removal of this balloon, a Marketwired Eye [place] IVUS catheter was introduced and images were obtained. After reviewing the images, a 2.75 x 15 mm NC Emerge balloon was advanced and inflations in the mid LAD were done at maximum of 12 atmospheres. After removing the balloon, a 3.5 x 8 mm NC Trek balloon was advanced and inflations in the distal left main and proximal LAD was done at 12 atmospheres. After the last inflation, after appropriate wait, the balloon and the guidewire were withdrawn back in the guiding catheter. Images were obtained and repeated. Those images revealed stable successful stenting. At that point, the guiding catheter, the balloon and the guidewire were removed. The sheath was removed. Hemostasis was obtained with deployment of the Angio-Seal. There was no immediate complication. Patient was returned to her room in stable condition. Of note, the patient had chest discomfort and EKG changes with the inflation that resolved at the end of the procedure. She received 6000 units of intravenous heparin and was continued on clopidogrel. RESULTS: Successful stenting of the proximal and mid LAD with reduction of stenosis from 99% to 0% with post dilatation following IVUS. RECOMMENDATION: Patient will be continued on aspirin, Plavix, aggressive coronary risk modification. The importance of smoking cessation were discussed with the patient and her family and they are in full understanding and agreement. Duration of sedation is 59 minutes. MMADDISON / ELN: [id number] /
[2020-12-22 14:11] VITALS: BMI 27.9
[2020-12-22] MEDS: FAMOTIDINE 20 MG TAB PO SCH (21:28)
[2020-12-23] MEDS: NITROGLYCERIN OINT 1 INCH/GM PACKET TOPICAL SCH (07:22)
--- NOTE | 2020-12-23 07:28 | ECHOF ---
Referral Reason:LV function MEASUREMENTS -------- HEIGHT: 165.1 cm WEIGHT: 75.7 kg BP: 146/73 IVSd: 1.5 cm (0.6 - 1.1) LVIDd: 4.2 cm (3.9 - 5.3) LVPWd: 1.5 cm (0.6 - 1.1) IVSs: 2.3 cm LVIDs: 1.9 cm LVPWs: 2.1 cm LAESV Index (A-L): 20.66 ml/m Ao Diam: 2.7 cm (2.0 - 3.7) AV Cusp: 1.5 cm (1.5 - 2.6) LA Diam: 2.8 cm (2.7 - 3.8) MV EXCURSION: 11.453 mm (> 18.000) MV EF SLOPE: 56 mm/s (70 - 150) EPSS: 0.7 cm MV E Martínez: 1.11 m/s MV DecT: 215 ms MV A Martínez: 0.61 m/s MV E/A Ratio: 1.83 AV maxP.87 mmHg AV meanP.62 mmHg RAP: 5.00 mmHg RVSP: 20.59 mmHg FINDINGS -------- This was a technically difficult study with suboptimal views. The left ventricular size is normal. There is severe concentric left ventricular hypertrophy. Ove rall left ventricular systolic function is mild-moderately impaired with, an EF between 40 - 45 %. Normal LAP. Grade 1 Diastolic Dysfunction. Mid anterior LV wall motion is hypokinetic. Mid later al LV wall motion is hypokinetic. Mid anteroseptal LV wall motion is hypokinetic. The right ventricle is normal in size. The left atrial size is normal. Normal LA size by volume 22+/-6 ml/m2. The right atrial size is normal. xx ml of Lumason was utilized for enhancement of images. Aortic valve is trileaflet and is mildly thickened. There is mild aortic valve sclerosis. Peak/me an gradient across the Aortic Valve is 13.87mmHg / 8.62mmHg. The mitral valve is normal. There is trace mitral regurgitation. The tricuspid valve appears structurally normal. Trace tricuspid regurgitation present. Right leeanna tricular systolic pressure is normal at < 35 mmHg. There is no pulmonic regurgitation present. The aortic root size is normal. IVC Not well visulized. There is no pericardial effusion. CONCLUSIONS -------- 1. The left ventricular size is normal. 2. There is severe concentric left ventricular hypertrophy. 3. Overall left ventricular systolic function is mild-moderately impaired with, an EF between 40 - 45 %. 4. Normal LAP. Grade 1 Diastolic Dysfunction. 5. Mid anterior LV wall motion is hypokinetic. 6. Mid lateral LV wall motion is hypokinetic. 7. Mid anteroseptal LV wall motion is hypokinetic. 8. Aortic valve is trileaflet and is mildly thickened. 9. There is mild aortic valve sclerosis. 10. Peak/mean gradient across the Aortic Valve is 13.87mmHg / 8.62mmHg. 11. There is trace mitral regurgitation. 12. Trace tricuspid regurgitation present. 13. There is no pericardial effusion. STOCK RANCH SUPERVISOR: Augusta Sahu RDCS
[2020-12-23] MEDS ORDERED: lisinopriL 5 MG TAB PO SCH (09:00)
[2020-12-23] MEDS ORDERED: atenoloL 25 MG TAB PO SCH ×2 (09:00)
[2020-12-23] MEDS ORDERED: ATORVASTATIN 40 MG TAB PO SCH (09:00)
[2020-12-23] MEDS ORDERED: ASPIRIN 81 MG PO SCH (09:00)
[2020-12-23] MEDS: CLOPIDOGREL 75 MG TAB PO SCH (09:15)
[2020-12-23] MEDS: FAMOTIDINE 20 MG TAB PO SCH (09:16)
[2020-12-23 09:22] LABS: African American GFR (CKD) >90 (>60 ml/min/1.73 sqM); Anion Gap 5 mmol/L; Blood Urea Nitrogen 14 mg/dL (7-17); Calcium 8.8 mg/dL (8.4-10.2); Carbon Dioxide 27 mmol/L (22-30); Chloride 108 mmol/L (98-107); Glucose 82 mg/dL (74-99); Non-African American GFR(CKD) 82 (>60 ml/min/1.73 sqM); Potassium 4.4 mmol/L (3.5-5.1); Sodium 140 mmol/L (137-145)
[2020-12-23 11:06] VITALS: BP 130/70; PULSE 55; RESP 16; TEMP 97.5
--- NOTE | 2020-12-23 14:16 | P.PN ---
Subjective Progress Note Date: 12/23/20 HISTORY OF PRESENT ILLNESS: 12/22/2020 This is a 50-year-old female with a past medical history significant for hypertension, hyperlipidemia, nicotine dependence, coronary artery disease with previous CABG and subsequent PCI to LAD. Patient follows in the office with Dr. Greer. We have been asked to see the patient in consultation for chest pain. Patient examined at the bedside. Patient reports she has been having midsternal chest pain and shortness of breath for the last 5 days. She states the pain radiates to her left arm, left shoulder and left shoulder blade. She states the pain occurs anytime she exerts herself. She states "I have been taking nitro like candy". She states the nitro was relieving her chest pain except yesterday when she took the nitro did not relieve her chest pain which made her nervous so she came to the emergency room for further evaluation. EKG reveals sinus mechanism. Heart rate 73. Mild ST depression inferiorly. Chest xray negative for acute process Laboratory data: WBC 6.8. Hemoglobin 13.6. Platelet count 190. Sodium 138. Potassium 3.6. BUN 22. Creatinine 0.66. Magnesium 2.0. BNP 983. Troponin 0.054. 0.088. 0.106. Current home cardiac medications include atenolol 25 mg daily, Plavix 75 mg daily, aspirin 325 mg daily. Most recent echocardiogram obtained in August 2020 revealed ejection fraction 55-60%, mild mitral regurgitation, [id number] tricuspid regurgitation, and mild to moderate pulmonary hypertension Cardiac catheterization history: August 2020. Patient had PCI to mid LAD. Additional findings revealed chronically occluded RCA, subtotally occluded RCA, patent SVG to OM and patent SVG to right PDA. 12/23/2020 Patient is status post cardiac cath with PCI to the LAD. Patient examined this morning at the bedside. Patient denies chest pain or pressure. She denies shortness of breath. Vital signs are stable. Patient is anxious to be discharged home today. PHYSICAL EXAM: VITAL SIGNS: Reviewed. GENERAL: Well-developed in no acute distress. HEENT: Head is normocephalic. Pupils are equal, round. Sclerae anicteric. Mucous membranes of the mouth are moist. Neck supple. No JVD or thyromegaly LUNGS: Respirations even and unlabored. Lungs essentially clear to auscultation bilaterally. HEART: Regular rate and rhythm. S1 and S2 heard. ABDOMEN: Soft. Nondistended. Nontender. EXTREMITIES: Normal range of motion. No clubbing or cyanosis. Peripheral pulses intact. No lower extremity edema. Right groin soft with no hematoma. Pulses present. NEUROLOGIC: Awake and alert. Oriented x 3. ASSESSMENT: Non-ST elevated myocardial infarction, s/p PCI to LAD Coronary artery disease with previous CABG 2015, and subsequent PCI to LAD, August 2020 Hypertension Hyperlipidemia, on Repatha outpatient Nicotine dependence, patient smokes 1/2 pack per day PLAN: Continue current cardiac medications Continue dual antiplatelet therapy Smoking cessation encouraged Patient is stable for discharge home today from a cardiac standpoint. Nurse practitioner note has been reviewed by physician. Signing provider agrees with the documented findings, assessment, and plan of care. Objective - Vital Signs Vital signs: Vital Signs Temp 97.5 F L 12/23/20 11:06 Pulse 55 L 12/23/20 11:06 Resp 16 12/23/20 11:06 BP 130/70 12/23/20 11:06 Pulse Ox 99 12/23/20 11:06 Intake & Output 12/22/20 12/23/20 12/23/20 18:59 06:59 18:59 Intake Total 424.216 100 300 Output Total 700 Balance -275.784 100 300 Weight 76.2 kg 76.5 kg Intake: IV 250 Intake, IV Titration 74.216 Amount Heparin Sod,Pork in 0.45% 74.216 NaCl 25,000 unit In 0.45 % NaCl 1 250ml.bag @ 12 UNITS/KG/HR 8.981 mls/hr IV .Q24H [facility] Rx#: [id number] Oral 100 100 300 Output: Urine 700 Other: Voiding Method Toilet Toilet Toilet # Voids 0 2 2 # Bowel Movements 0 - Labs CBC & Chem 7: 12/21/20 14:42 12/23/20 08:23 Labs: Abnormal Lab Results - Last 24 Hours (Table) 12/23/20 Range/Units 08:23 Chloride 108 H (98-107) mmol/L
[2020-12-27] MEDS ORDERED: ERGOCALCIFEROL 1,250 MCG (50,000 IU) CAPSULE PO SCH (09:00)
--- NOTE | 2020-12-29 09:48 | P.DS ---
Providers Date of admission: 12/22/20 10:59 Attending physician: Solitario Ness MD Consults: 12/21/20 15:48 Consult Physician Urgent Consulting Provider: Cardiology Celestina Consult Reason/Comments: Unstable angina Do you want consulting provider notified?: Yes 12/22/20 12:28 Consult Physician Routine Consulting Provider: Juan Oscar Consult Reason/Comments: Post Interventional patient Do you want consulting provider notified?: Already Contacted Primary care physician: Eulalia Lutz [facility] Course: Date of service: 12/23/2020 Diagnoses: acute None STEMI Hypertension. Hyperlipidemia. Nicotine dependence History of coronary artery disease status post bypass grafting in 2014 and history of note STEMI status post stent of the LAD on 08/2020 Hospital course: This is a pleasant 50 years old female with past medical history of coronary artery disease, history of coronary artery bypass grafting 2014, history of right coronary artery stented, cigarette smoker. She is a patient of Dr. Esteban and weigh tank operator Dr. Preston She was recently discharged from the hospital on 08/26-08/27/24 note STEMI where she underwent cardiac cath and found to have patent saphenous vein graft to the OM and to the right coronary artery but had critical stenosis in LAD status post new stent placement. Presents because of palpitation off and on for 5 days associated with central chest pain radiating to the shoulder, patient evaluated by weigh tank operator for his none STEMI, he underwent cardiac cath and PCI placement to the LAD, post procedure patient is feeling much well, no chest pain or dyspne a and no other complaint Patient was cleared by weigh tank operator for discharge Problems and management plan were discussed with the patient and he verbalized understanding and acceptance Patient was found stable and can be discharged home however he needs follow-up as an outpatient. Patient was instructed to follow up with PCP Dr. Hinton within one week and patient agrees. Also patient was instructed to follow up with her weigh tank operator Dr. Greer in one to two weeks and she agrees Physical exam Gen: patient is a AAOx3, no distress CVS: S1-S2, RRR, no murmur Lungs: B/L CTA, no wheezing Abdomen: soft, no distention, no tenderness, positive bowel sounds Extremity: no leg edema or induration Time spent more than 35 minutes Plan - Discharge Summary Discharge Rx Participant: No New Discharge Prescriptions: New RX: Aspirin 81 mg PO DAILY chew RX: Atorvastatin [Lipitor] 40 mg PO DAILY #90 tab RX: lisinopriL [Zestril] 5 mg PO DAILY #90 tab Continue RX: Nitroglycerin Sl Tabs [Nitrostat] 0.4 mg SL Q5M PRN PRN Reason: Chest Pain RX: atenoloL [Atenolol] 25 mg PO DAILY RX: Clopidogrel Bisulfate [Plavix] 75 mg PO DAILY RX: Ergocalciferol (Vitamin D2) [Drisdol (50,000 Iu)] 1,250 mcg PO MO Discontinued RX: Aspirin 325 mg PO DAILY Discharge Medication List RX: Nitroglycerin Sl Tabs [Nitrostat] 0.4 mg SL Q5M PRN 08/26/20 [History] RX: Clopidogrel Bisulfate [Plavix] 75 mg PO DAILY 12/21/20 [History] RX: Ergocalciferol (Vitamin D2) [Drisdol (50,000 Iu)] 1,250 mcg PO MO 12/21/20 [History] RX: atenoloL [Atenolol] 25 mg PO DAILY 12/21/20 [History] RX: Aspirin 81 mg PO DAILY chew 12/23/20 [Rx] RX: Atorvastatin [Lipitor] 40 mg PO DAILY #90 tab 12/23/20 [Rx] RX: lisinopriL [Zestril] 5 mg PO DAILY #90 tab 12/23/20 [Rx] Follow up Appointment(s)/Referral(s): Hetal Greer MD [STAFF PHYSICIAN] - 01/04/21 10:00 am Nelda Esteban MD [Primary Care Provider] - 12/28/20 10:30 am Patient Instructions/Handouts: *Surgery [facility] - After Heart Catheterization - Rigging Helper Instructions Activity/Diet/Wound Care/Special Instructions: Heart healthy diet Activity is restricted to you see your doctor Discharge Disposition: HOME SELF-CARE
== END 2020-12-23 15:00 | disposition home or self-care (01) | DRG 247 ==
LOC: EC 13:41 → 3SCARD 15:48 → OBSVTOIN 12-22 10:59
PROVIDERS: ADMIT Internal Medicine; ATTEND Internal Medicine
PROC: B2131ZZ Fluoroscopy of Multiple Coronary Artery Bypass Grafts using Low Osmolar Contrast (ICD-10-PCS; principal; 2020-12-22 09:50)
PROC: 4A023N7 Measurement of Cardiac Sampling and Pressure, Left Heart, Percutaneous Approach (ICD-10-PCS; principal; 2020-12-22 09:50)
PROC: 027035Z Dilation of Coronary Artery, One Artery with Two Drug-eluting Intraluminal Devices, Percutaneous Approach (ICD-10-PCS; principal; 2020-12-22 09:50)
PROC: B2111ZZ Fluoroscopy of Multiple Coronary Arteries using Low Osmolar Contrast (ICD-10-PCS; principal; 2020-12-22 09:50)
DX: I21.4 Non-ST elevation (NSTEMI) myocardial infarction (principal); F17.210 Nicotine dependence, cigarettes, uncomplicated; M79.7 Fibromyalgia; E78.00 Pure hypercholesterolemia, unspecified; E78.5 Hyperlipidemia, unspecified; I11.0 Hypertensive heart disease with heart failure; I25.10 Atherosclerotic heart disease of native coronary artery without angina pectoris; I25.2 Old myocardial infarction; I50.9 Heart failure, unspecified; Z79.02 Long term (current) use of antithrombotics/antiplatelets; Z79.82 Long term (current) use of aspirin; Z79.899 Other long term (current) drug therapy; Z82.49 Family history of ischemic heart disease and other diseases of the circulatory system; I08.1 Rheumatic disorders of both mitral and tricuspid valves; I27.20 Pulmonary hypertension, unspecified; Z20.822 Contact with and (suspected) exposure to COVID-19; M32.9 Systemic lupus erythematosus, unspecified; Z90.89 Acquired absence of other organs
CPT/HCPCS: 36415; 71046; 80048; 80053; 80061; 83735; 83880; 84484; 85025; 85347; 85610; 85730; 87635; 92978; 93005; 93306; 93459; 96374; 99291

== ENCOUNTER 2021-10-25 00:12 | Emergency (ER) | payer OTHER ==
[2021-10-25 00:20] VITALS: TEMP 99.2
--- NOTE | 2021-10-25 00:55 | XR ---
EXAMINATION TYPE: XR chest 2V DATE OF EXAM: 10/25/2021 COMPARISON: 12/21/2020 HISTORY: Chest pain TECHNIQUE: 2 views FINDINGS: There is no heart failure nor confluent pneumonic infiltrate. Costophrenic angles are clear . There are no hilar masses. There are sternal wires. Diaphragm is normal. IMPRESSION: No active cardiopulmonary disease. Normal heart. No change.
[2021-10-25 01:18] LABS: Basophils # (A) 0.1 k/uL (0-0.2); Basophils % (A) 1 %; Eosinophils # (A) 0.1 k/uL (0-0.7); Eosinophils % (A) 1 %; HCT 42.5 % (34.0-46.0); HGB 13.7 gm/dL (11.4-16.0); Lymphocytes # (A) 3.5 k/uL (1.0-4.8); Lymphocytes % (A) 34 %; MCHC 32.2 g/dL (31.0-37.0); MCV 96.3 fL (80.0-100.0); Mean Platelet Volume 8.3; Monocytes # (A) 0.4 k/uL (0-1.0); Monocytes % (A) 4 %; Neutrophils # (A) 6.1 k/uL (1.3-7.7); Neutrophils % (A) 59 %; Platelet Count 211 k/uL (150-450); RBC 4.41 m/uL (3.80-5.40); WBC 10.4 k/uL (3.8-10.6)
[2021-10-25 01:27] LABS: Albumin 4.4 g/dL (3.5-5.0); Calcium 9.4 mg/dL (8.4-10.2); INR 0.9 (<1.2); Magnesium 1.7 mg/dL (1.6-2.3); Partial Thromboplastin Time 25.3 sec (22.0-30.0); Potassium 4.1 mmol/L (3.5-5.1); Prothrombin Time 9.8 sec (9.0-12.0); Total Bilirubin 0.6 mg/dL (0.2-1.3); Total Protein 7.7 g/dL (6.3-8.2)
--- NOTE | 2021-10-25 03:02 | ED ---
Chest Pain HPI - General Chief Complaint: Chest Pain Stated Complaint: Chest pain Time Seen by Provider: 10/25/21 03:00 Source: patient, RN notes reviewed, old records reviewed Mode of arrival: wheelchair Limitations: no limitations - History of Present Illness Initial Comments: This is a 51-year-old female to the emergency department today. Patient pr esents today for evaluation regards to rest. Patient at this time chest pain is resolved. No shortness of breath other significant complaints here in the emergency department. Patient states she is having that she feels that it is concerned about a poor will be elevated heart rate abnormal EKG. No fevers or cough congestion no other complaints MD Complaint: chest pain -: hour(s) Onset: during rest, during exertion Pain Location: substernal, left chest, right chest Pain Radiation: RUE, back Severity: moderate Severity scale (1-10): 4 Quality: tightness, heaviness Consistency: constant, now resolved Improves With: nothing Worsens With: nothing Anginal Symptoms: dyspnea, sense of impending doom Other Symptoms: palpitations Treatments Prior to Arrival: none - Related Data Home Medications Medication Instructions Recorded Confirmed Nitroglycerin Sl Tabs [Nitrostat] 0.4 mg SL Q5M PRN 08/26/20 12/21/20 Clopidogrel Bisulfate [Plavix] 75 mg PO DAILY 12/21/20 12/21/20 Ergocalciferol (Vitamin D2) 1,250 mcg PO MO 12/21/20 12/21/20 [Drisdol (50,000 Iu)] atenoloL 25 mg PO DAILY 12/21/20 12/21/20 Previous Rx's Medication Instructions Recorded Aspirin 81 mg PO DAILY chew 12/23/20 Atorvastatin [Lipitor] 40 mg PO DAILY #90 tab 12/23/20 lisinopriL [Zestril] 5 mg PO DAILY #90 tab 12/23/20 Allergies Allergy/AdvReac Type Severity Reaction Status Date / Time No Known Allergies Allergy Verified 10/25/21 00:17 Review of Systems ROS Statement: Those systems with pertinent positive or pertinent negative responses have been documented in the HPI. ROS Other: All systems not noted in ROS Statement are negative. Past Medical History Past Medical History: Chest Pain / Angina, Deep Vein Thrombosis (DVT), Hypertension, Myocardial Infarction ([place]), Skin Disorder Additional Past Medical History / Comment(s): fibromyalgia, lupus. double bypass, CONGESTIVE HEART FAILURE, HAS BLOOD CLOT IN RT FOREARM AND ANOTHER ONE IN LEFT LEG THIGH AREA Last Myocardial Infarction Date:: 08/25/20 History of Any Multi-Drug Resistant Organisms: None Reported Past Surgical History: Adenoidectomy, Coronary Bypass/CABG, Heart Catheteriz ation With Stent, Tonsillectomy Additional Past Surgical History / Comment(s): DOUBLE BYPASS- 2015, ANEURYSM GRAFT NOV 2015 Past Anesthesia/Blood Transfusion Reactions: No Reported Reaction Date of Last Stent Placement:: August 2020 Past Psychological History: Anxiety Smoking Status: Current every day smoker Past Alcohol Use History: None Reported Past Drug Use History: Marijuana - Past Family History Father History Unknown: Yes Additional Family Medical History / Comment(s): UNKNOWN Brother(s) Family Medical History: No Reported History Sister(s) Family Medical History: No Reported History Mother Family Medical History: Hypertension General Exam Limitations: no limitations General appearance: alert, in no apparent distress Head exam: Present: atraumatic, normocephalic, normal inspection Eye exam: Present: normal appearance, PERRL, EOMI. Absent: scleral icterus, conjunctival injection, periorbital swelling ENT exam: Present: normal exam, mucous membranes moist Neck exam: Present: normal inspection. Absent: tenderness, meningismus, lymphadenopathy Respiratory exam: Present: normal lung sounds bilaterally. Absent: respiratory distress, wheezes, rales, rhonchi, stridor Cardiovascular Exam: Present: regular rate, normal rhythm, normal heart sounds. Absent: systolic murmur, diastolic murmur, rubs, gallop, clicks GI/Abdominal exam: Present: soft, normal bowel sounds. Absent: distended, tenderness, guarding, rebound, rigid Extremities exam: Present: normal inspection, full ROM, normal capillary refill. Absent: tenderness, pedal edema, joint swelling, calf tenderness Back exam: Present: normal inspection Neurological exam: Present: alert, oriented X3, CN II-XII intact Psychiatric exam: Present: normal affect, normal mood Skin exam: Present: warm, dry, intact, normal color. Absent: rash Course Vital Signs 10/25/21 10/25/21 10/25/21 00:17 03:37 03:52 Temperature 99.2 F Pulse Rate 94 75 Pulse Rate [ 75 Pulse Oximetery ] Respiratory 20 18 Rate Blood Pressure 119/72 144/82 O2 Sat by Pulse 98 99 Oximetry - Reevaluation(s) Reevaluation #1: 10/25/21 Medical record is reviewed Patient symptoms have improved here in the ER Patient informed results and questions have been answered Chest Pain MDM - MDM 51 female DEL with chest pain and palpitations. She has have a strong cardiac history but this time with negative troponin testing patient wants discharged home and she is working on finding a new sewing machine mechanic. Patient can be discharged Disposition Clinical Impression: Chest pain, Palpitations Disposition: HOME SELF-CARE Condition: Undetermined Instructions (If sedation given, give patient instructions): Chest Pain (ED), Heart Palpitations (ED) Is patient prescribed a controlled substance at d/c from ED?: No Referrals: Nelda Esteban MD [Primary Care Provider] - 1-2 days
[2021-10-25 03:39] VITALS: PULSE 75
[2021-10-25 03:53] VITALS: BP 144/82; RESP 18
== END 2021-10-25 04:34 | disposition home or self-care (01) ==
LOC: EC 00:12
DX: R07.89 Other chest pain (principal); R00.2 Palpitations; I25.2 Old myocardial infarction; I11.0 Hypertensive heart disease with heart failure; I50.32 Chronic diastolic (congestive) heart failure; F41.9 Anxiety disorder, unspecified; F17.200 Nicotine dependence, unspecified, uncomplicated; F12.90 Cannabis use, unspecified, uncomplicated; Z79.02 Long term (current) use of antithrombotics/antiplatelets; Z79.82 Long term (current) use of aspirin; Z86.718 Personal history of other venous thrombosis and embolism; Z95.1 Presence of aortocoronary bypass graft
CPT/HCPCS: 36415; 71046; 80053; 83735; 84484; 85025; 85610; 85730; 93005; 99285

== ENCOUNTER 2024-01-30 10:01 | Inpatient (IN) | payer OTHER ==
--- NOTE | 2024-01-30 11:06 | XR ---
EXAMINATION TYPE: XR chest 2V DATE OF EXAM: 01/30/2024 COMPARISON: 10/25/2021 HISTORY: Shortness of breath TECHNIQUE: Frontal and lateral views of the chest are obtained. FINDINGS: Scattered senescent parenchymal changes noted. Hyperinflation compatible with COPD. No evidence for infiltrate. No evidence for atelectasis. Heart size is stable. Mediastinal structures are stable and grossly unremarkable. No evidence for hilar prominence. Degenerative changes dorsal spine. IMPRESSION: 1. No evidence for acute pulmonary disease.
[2024-01-30] MEDS: NITROGLYCERIN OINT 1 INCH/GM PACKET TOPICAL STA (11:25)
[2024-01-30 11:32] LABS: Basophils # (A) 0.1 k/uL (0-0.2); Basophils % (A) 0 %; Eosinophils # (A) 0.2 k/uL (0-0.7); Eosinophils % (A) 2 %; HCT 43.6 % (34.0-46.0); HGB 13.9 gm/dL (11.4-16.0); Lymphocytes # (A) 3.9 k/uL (1.0-4.8); Lymphocytes % (A) 36 %; MCH 31.7 pg (25.0-35.0); MCHC 31.8 g/dL (31.0-37.0); MCV 99.6 fL (80.0-100.0); Mean Platelet Volume 8.3; Monocytes # (A) 0.4 k/uL (0-1.0); Monocytes % (A) 4 %; Neutrophils # (A) 6.2 k/uL (1.3-7.7); Neutrophils % (A) 56 %; Platelet Count 255 k/uL (150-450); RBC 4.37 m/uL (3.80-5.40); RDW 13.4 % (11.5-15.5)
[2024-01-30 11:39] LABS: ALT 15 U/L (4-34); AST 24 U/L (14-36); African American GFR (CKD) >90 (>60 ml/min/1.73 sqM); Albumin 4.1 g/dL (3.5-5.0); Alkaline Phosphatase 104 U/L (38-126); Anion Gap 9 mmol/L; Blood Urea Nitrogen 19 mg/dL (7-17); Calcium 9.1 mg/dL (8.4-10.2); Carbon Dioxide 23 mmol/L (22-30); Chloride 109 mmol/L (98-107); Glucose 99 mg/dL (74-99); Non-African American GFR(CKD) 84 (>60 ml/min/1.73 sqM); Potassium 3.7 mmol/L (3.5-5.1); Sodium 141 mmol/L (137-145); Total Bilirubin 0.3 mg/dL (0.2-1.3); Total Protein 7.1 g/dL (6.3-8.2)
[2024-01-30 11:43] LABS: INR 0.9 (<1.2); Partial Thromboplastin Time 25.9 sec (22.0-30.0); Prothrombin Time 10.1 sec (10.0-12.5)
--- NOTE | 2024-01-30 12:11 | ED ---
Chest Pain HPI - General Chief Complaint: Chest Pain Stated Complaint: Chest pain Time Seen by Provider: 01/30/24 10:11 Source: patient, EMS, RN notes reviewed Mode of arrival: EMS Limitations: no limitations - History of Present Illness Initial Comments: 53 female presents emergency department chief complaint of chest pain. She has been having some intermittent symptoms but it is lasting longer and worsening recently. Patient states she does take nitro and alleviates her symptoms. She has had prior cardiac stents, double bypass. Patient denies any fevers or chills she does take hyperlipidemia, antihypertensive medications. Patient states this feels very similar to her prior cardiac disease. - Related Data Home Medications Medication Instructions Recorded Confirmed Nitroglycerin Sl Tabs [Nitrostat] 0.4 mg SL Q5M PRN 08/26/20 12/21/20 Clopidogrel Bisulfate [Plavix] 75 mg PO DAILY 12/21/20 12/21/20 Ergocalciferol (Vitamin D2) 1,250 mcg PO MO 12/21/20 12/21/20 [Drisdol (50,000 Iu)] atenoloL 25 mg PO DAILY 12/21/20 12/21/20 Previous Rx's Medication Instructions Recorded Aspirin 81 mg PO DAILY chew 12/23/20 Atorvastatin [Lipitor] 40 mg PO DAILY #90 tab 12/23/20 lisinopriL [Zestril] 5 mg PO DAILY #90 tab 12/23/20 Allergies Allergy/AdvReac Type Severity Reaction Status Date / Time No Known Allergies Allergy Verified 01/30/24 10:07 Review of Systems ROS Statement: Those systems with pertinent positive or pertinent negative responses have been documented in the HPI. ROS Other: All systems not noted in ROS Statement are negative. EKG Findings - EKG Comments: EKG Findings:: EKG performed at 10: 08 sinus rhythm with a rate of 76 TX 160 QRS 109 QT/QTc 395/425. Repeat EKG 12: 39 sinus rhythm with a rate of 70 TX 156 QRS 113 QT/QTc 418/438 - EKG Results: EKG: interpreted by DAYANARA Past Medical History Past Medical History: Chest Pain / Angina, Deep Vein Thrombosis (DVT), Hypertension, Myocardial Infarction ([place]), Skin Disorder Additional Past Medical History / Comment(s): fibromyalgia, lupus. double bypass, CONGESTIVE HEART FAILURE, HAS BLOOD CLOT IN RT FOREARM AND ANOTHER ONE IN LEFT LEG THIGH AREA Last Myocardial Infarction Date:: 08/25/20 History of Any Multi-Drug Resistant Organisms: None Reported Past Surgical History: Adenoidectomy, Coronary Bypass/CABG, Heart Catheterization With Stent, Tonsillectomy Additional Past Surgical History / Comment(s): DOUBLE BYPASS- 2015, ANEURYSM GRAFT NOV 2015 Past Anesthesia/Blood Transfusion Reactions: No Reported Reaction Date of Last Stent Placement:: August 2020 Past Psychological History: Anxiety Smoking Status: Current every day smoker Past Alcohol Use History: None Reported Past Drug Use History: Marijuana - Past Family History Father History Unknown: Yes Additional Family Medical History / Comment(s): UNKNOWN Brother(s) Family Medical History: No Reported History Sister(s) Family Medical History: No Reported History Mother Family Medical History: Hypertension General Exam Limitations: no limitations General appearance: alert, in no apparent distress Head exam: Present: atraumatic, normocephalic, normal inspection Eye exam: Present: normal appearance, PERRL, EOMI. Absent: scleral icterus, conjunctival injection, periorbital swelling ENT exam: Present: normal exam, mucous membranes moist Neck exam: Present: normal inspection, full ROM. Absent: tenderness, meningismus, lymphadenopathy Respiratory exam: Present: normal lung sounds bilaterally. Absent: respiratory distress, wheezes, rales, rhonchi, stridor Cardiovascular Exam: Present: regular rate, normal rhythm, normal heart sounds. Absent: systolic murmur, diastolic murmur, rubs, gallop, clicks GI/Abdominal exam: Present: soft, normal bowel sounds. Absent: distended, tenderness, guarding, rebound, rigid Skin exam: Present: warm, dry, intact, normal color. Absent: rash Course Vital Signs 01/30/24 10:02 Temperature 98.4 F Pulse Rate 75 Respiratory 18 Rate Blood Pressure 175/86 O2 Sat by Pulse 100 Oximetry Chest Pain MDM - MDM Was pt. sent in by a medical professional or institution (, PA, CORRECTIONAL PROBATION OFFICER, urgent care, hospital, or assisted...) When possible be specific @ -[No] Did you speak to anyone other than the patient for history (EMS, parent, family, police, friend...)? What history was obtained from this source @ -[No] Did you review nursing and triage notes (agree or disagree)? Why? @ -[I reviewed and agree with nursing and triage notes] Were old charts reviewed (outside hosp., previous admission, EMS record, old EKG, old radiological studies, urgent care reports/EKG's, assisted records)? Report findings @ -Reviewed prior EKG, CBC comp and cardiology evaluation Differential Diagnosis (chest pain, altered mental status, abdominal pain women, abdominal pain men, vaginal bleeding, weakness, fever, dyspnea, syncope, headache, dizziness, GI bleed, back pain, seizure, CVA, palpatations, mental health, musculoskeletal)? @ -Differential Chest Pain: Stable Angina, Unstable Angina, STEMI, NSTEMI Aortic Dissection, Pneumothorax, Musculoskeletal, Esophageal Spasm GERD, Cholecystitis, Pancreatitis, Zoster, this is not meant to be an all-inclusive list. EKG interpreted by me (3pts min.). @ -[As above] X-rays interpreted by me (1pt min.). @ -Chest x-ray 2 view no acute cardiopulmonary process CT interpreted by me (1pt min.). @ -[None done] U/S interpreted by me (1pt. min.). @ -[None done] What testing was considered but not performed or refused? (CT, X-rays, U/S, labs)? Why? @ -[None] What meds were considered but not given or refused? Why? @ -[None] Did you discuss the management of the patient with other professionals (professionals i.e. , PA, CORRECTIONAL PROBATION OFFICER, lab, RT, psych nurse, social worker delinquency prevention, buffing wheel presser, teacher, hydrographical technical officer, immigration case worker)? Give summary @ -Some position for admission for NSTEMI Was smoking cessation discussed for >3mins.? @ -[No] Was critical care preformed (if so, how long)? @ -35 minutes Were there social determinants of health that impacted care today? How? (Homelessness, low income, unemployed, alcoholism, drug addiction, transportation, low edu. Level, literacy, decrease access to med. care, group home, rehab)? @ -[No] Was there de-escalation of care discussed even if they declined (Discuss DNR or withdrawal of care, Hospice)? DNR status @ -[No] What co-morbidities impacted this encounter? (DM, HTN, Smoking, COPD, CAD, Cancer, CVA, ARF, Chemo, Hep., AIDS, mental health diagnosis, sleep apnea, morbid obesity)? @ -CABG, hypertension, CAD Was patient admitted / discharged? Hospital course, mention meds given and route, prescriptions, significant lab abnormalities, going to OR and other pertinent info. @ -Admitted patient has elevated troponin of 0.3 patient has significant CAD and prior CABG. Patient will be admitted for cardiology evaluation, repeat tropon in, patient was started on heparin, Nitropaste was applied. Undiagnosed new problem with uncertain prognosis? @ -[No] Drug Therapy requiring intensive monitoring for toxicity (Heparin, Nitro, Insulin, Cardizem)? @ -Heparin Were any procedures done? @ -[No] Diagnosis/symptom? @ -NSTEMI Acute, or Chronic, or Acute on Chronic? @ -Acute Uncomplicated (without systemic symptoms) or Complicated (systemic symptoms)? @ -Complicated Side effects of treatment? @ -[No] Exacerbation, Progression, or Severe Exacerbation? @ -[No] Poses a threat to life or bodily function? How? (Chest pain, [place], [place], pneumonia, PE, COPD, DKA, ARF, appy, cholecystitis, CVA, Diverticulitis, Homicidal, Suicidal, threat to staff... and all critical care pts) @ -Yes ACS Critical Care Time Critical Care Time: Yes Total Critical Care Time: 35 Disposition Clinical Impression: NSTEMI (non-ST elevated myocardial infarction) Disposition: ADMITTED IP TO THIS HOSP Condition: Fair Referrals: None,Stated [Primary Care Provider] - 1-2 days Time of Disposition: 12:06
[2024-01-30] MEDS: HEPARIN SODIUM 1,000 UN/ML (10ML VL) IV ONE (12:51)
[2024-01-30] MEDS: HEPARIN SOD,PORK IN 0.45% NACL 25,000 UNIT in 0.45% NACL 1 250ML.BAG IV SCH (12:52)
--- NOTE | 2024-01-30 14:43 | P.HPIM ---
History of Present Illness H&P Date: 01/30/24 53-year-old female with PMH of CAD post stent and CABG, hypertension, fibromyalgia, lupus presents to the ED for chest pain. Chest pain started 4 days ago initially occurring twice a day. Frequency of her chest pain has been getting worse occurring hourly today. Chest pain is right-sided, burning in nature with radiation to the right arm. Pain is associated with nausea and diaphoresis. Nitroglycerin relieved her chest pain. In the ED, she underwent extensive evaluation. BP 175/86, HR 75, RR 18, T 98.4F, 100% on RA. CBC, coag panel, CMP performed significant for WBC 11, chloride 109, BUN 19. D-dimer 0.4. Troponin 0.313. Magnesium 2.0. EKG showed sinus rhythm with no ST depression or elevation. Chest x-ray negative. Patient is started on a heparin drip and admitted for non-ST elevation DC. General: non toxic, no distress, appears at stated age Derm: warm, dry Head: atraumatic, normocephalic, symmetric Eyes: EOMI, no lid lag, anicteric sclera Mouth: no lip lesion, mucus membranes moist Cardiovascular: S1S2 reg, no murmur Lungs: CTA bilateral, no rhonchi, no rales , no accessory muscle use Ext: no gross muscle atrophy, no edema, no contractures Neuro: no focal neuro deficits Psych: Alert, oriented, appropriate affect Based on my assessment of this patient, this patient meets a high complexity level of care. Patient has an acute diagnosis of NSTEMI which poses a threat to life or bodily function. NSTEMI: Trend Troponin. Status post ASA 325 mg PO x 1. Start ASA 81 mg PO QD. Start Heparin drip low intensity. Telemetry monitoring. Echo ordered. Cardiology consulted. Hypertension: Lisinopril 5 mg PO TID. Atenolol 25 mg PO BID. Fibromyalgia: Rusk 10 PO BID. Lupus CODE STATUS: FULL CODE DVT Prophylaxis: Heparin drip GI Prophylaxis: Designated medical POA if patient is not able to make medical decisions for themselves: Daughter I have reviewed the following independent marketing consultant notes: ED note. I have reviewed the results of the following tests: As above. I have ordered the following tests: As above. I have discussed the care of this patient with the following independent historian: I have independently interpreted the following test below: EKG. I have discussed the management of this patient with the following physician: Past Medical History Past Medical History: Chest Pain / Angina, Deep Vein Thrombosis (DVT), Hyp ertension, Myocardial Infarction ([place]), Skin Disorder Additional Past Medical History / Comment(s): fibromyalgia, lupus. double bypass, CONGESTIVE HEART FAILURE, HAS BLOOD CLOT IN RT FOREARM AND ANOTHER ONE IN LEFT LEG THIGH AREA Last Myocardial Infarction Date:: 08/25/20 History of Any Multi-Drug Resistant Organisms: None Reported Past Surgical History: Adenoidectomy, Coronary Bypass/CABG, Heart C atheterization With Stent, Tonsillectomy Additional Past Surgical History / Comment(s): DOUBLE BYPASS- 2015, ANEURYSM GRAFT NOV 2015 Past Anesthesia/Blood Transfusion Reactions: No Reported Reaction Date of Last Stent Placement:: August 2020 Past Psychological History: Anxiety Smoking Status: Current every day smoker Past Alcohol Use History: None Reported Past Drug Use History: Marijuana - Past Family History Father History Unknown: Yes Additional Family Medical History / Comment(s): UNKNOWN Brother(s) Family Medical History: No Reported History Sister(s) Family Medical History: No Reported History Mother Family Medical History: Hypertension Medications and Allergies Home Medications Medication Instructions Recorded Confirmed Type Nitroglycerin Sl Tabs [Nitrostat] 0.4 mg SL Q5M PRN 08/26/20 01/30/24 History atenoloL 25 mg PO BID 12/21/20 01/30/24 History Furosemide [Lasix] 20 mg PO DAILY PRN 01/30/24 01/30/24 History HYDROcodone/APAP 10-325MG [[place] 1 tab PO BID 01/30/24 01/30/24 History 10-325] lisinopriL [Zestril] 5 mg PO TID 01/30/24 01/30/24 History Allergies Allergy/AdvReac Type Severity Reaction Status Date / Time No Known Allergies Allergy Verified 01/30/24 13:47 Physical Exam Vitals: Vital Signs Temp Pulse Resp BP Pulse Ox 01/30/24 12:55 97.7 F 68 17 117/67 97 01/30/24 10:02 98.4 F 75 18 175/86 100 Intake and Output 01/29/24 01/30/24 01/30/24 22:59 06:59 14:59 Other: Weight 79.379 kg Results CBC & Chem 7: 01/30/24 11:12 01/30/24 11:12 Labs: Abnormal Lab Results - Last 24 Hours (Table) 01/30/24 01/30/24 01/30/24 Range/Units 11:12 11:12 11:12 WBC 11.0 H (3.8-10.6) k/uL Chloride 109 H (98-107) mmol/L BUN 19 H (7-17) mg/dL Troponin I 0.313 H* (0.000-0.034) ng/mL
[2024-01-30] MEDS: NITROGLYCERIN OINT 1 INCH/GM PACKET TOPICAL SCH (18:24)
[2024-01-30] MEDS: HYDROcodone/APAP 10-325MG 1 EACH TAB PO SCH (21:06)
[2024-01-30] MEDS: atenoloL 25 MG TAB PO SCH (21:06)
[2024-01-31] MEDS: ASPIRIN 81 MG PO SCH (05:43)
[2024-01-31] MEDS: lisinopriL 5 MG TAB PO SCH (05:43)
[2024-01-31] MEDS: ATORVASTATIN 40 MG TAB PO SCH (05:43)
[2024-01-31] MEDS: CLOPIDOGREL 75 MG TAB PO SCH (05:43)
[2024-01-31 08:13] LABS: Mean Platelet Volume 8.1; Platelet Count 230 k/uL (150-450)
[2024-01-31] MEDS ORDERED: lisinopriL 5 MG TAB PO SCH (09:00)
[2024-01-31] MEDS ORDERED: atenoloL 25 MG TAB PO SCH (09:00)
[2024-01-31] MEDS ORDERED: ASPIRIN 325 MG TAB PO SCH (09:00)
[2024-01-31] MEDS: HEPARIN SODIUM 1,000 UN/ML (10ML VL) IV PRN (10:09)
[2024-01-31 11:11] LABS: Chol/HDL Ratio 5.11 Ratio; LDL Cholesterol,Calculated 147.9 mg/dL (0.0-131.0)
--- NOTE | 2024-01-31 11:26 | P.CRDCN ---
History of Present Illness History of present illness: HISTORY OF PRESENTING ILLNESS Patient is pleasant 53-year-old female with history of lupus, fibromyalgia, hypertension, CAD status post CABG as well as stenting and aneurysm status post repair and tobacco abuse who presents secondary to chest pain. Patient follows with Dr. Soto were also had stenting with Dr. Greer 3-4 years ago. She originally was worked up and found to have aneurysm and eventually underwent repair as well as bypass with open heart surgery. She had been doing fairly well however had stenting of her LAD in 2019. She has been followed Dr. Soto in has significant statin intolerance and therefore off of any cholesterol regimen. She believes she cannot tolerate Zetia as well and Repatha worked however now not covered by insurance. She presents secondary to episodes of chest pain new in the last one week which will occur while she is just sitting there and sometimes with exertion. These are associated with nausea, diaphoresis and shortness breath and feels similar to her prior angina other than the fact that her prior angina was more left arm pain and currently is some right arm pain. She had chest pain and therefore was given nitro with improvement in pain and placed on nitro patch and currently has not had any recurrent chest pain. Troponins mildly elevated. REVIEW OF SYSTEMS At the time of my exam: CONSTITUTIONAL: Denies fever or chills. CARDIOVASCULAR: +chest pain, shortness of breath, orthopnea, PND or palpitations. RESPIRATORY: Denies cough. GASTROINTESTINAL: Denies abdominal pain, diarrhea, constipation, nausea or vomiting. MUSCULOSKELETAL: Denies myalgias. NEUROLOGIC: Denies numbness, tingling or weakness. ENDOCRINE: Denies fatigue, weight change, polydipsia or polyurina. GENITOURINARY: Denies burning, hematuria or urgency with micturation. HEMATOLOGIC: Denies history of anemia or bleeding. PHYSICAL EXAMINATION Vital signs reviewed. CONSTITUTIONAL: No apparent distress. HEENT: Head is normocephalic. Pupils are equal, round. Sclerae anicteric. Mucous membranes of the mouth are moist. No JVD. No carotid bruit. CHEST EXAMINATION: Lungs are clear to auscultation. No chest wall tenderness is noted on palpation or with deep breathing. HEART EXAMINATION: Regular rate and rhythm. S1, S2 heard. No murmurs, gallops or rub. ABDOMEN: Soft, nontender. Positive bowel sounds. EXTREMITIES: 2+ peripheral pulses, no lower extremity edema and no calf tenderness. NEUROLOGIC EXAMINATION: Patient is awake, alert and oriented x3. ASSESSMENT non-STEMI likely type I mechanism CAD with prior CABG as well as PCI History of aneurysm status post repair Hypertension Tobacco abuse Statin intolerance Fibromyalgia Lupus PLAN patient with typical symptoms improved with nitro consistent with angina and multiple risk factors. We discussed heart catheterization and patient is agreeable. Check 2-D echo. Continue heparin drip. Discussed tobacco cessation. Further recommendations to follow. Past Medical History Past Medical History: Chest Pain / Angina, Deep Vein Thrombosis (DVT), Hype rtension, Myocardial Infarction ([place]), Skin Disorder Additional Past Medical History / Comment(s): fibromyalgia, lupus. double bypass, CONGESTIVE HEART FAILURE, HAS BLOOD CLOT IN RT FOREARM AND ANOTHER ONE IN LEFT LEG THIGH AREA Last Myocardial Infarction Date:: 08/25/20 History of Any Multi-Drug Resistant Organisms: None Reported Past Surgical History: Adenoidectomy, Coronary Bypass/CABG, Heart Ca theterization With Stent, Tonsillectomy Additional Past Surgical History / Comment(s): DOUBLE BYPASS- 2015, ANEURYSM GRAFT NOV 2015 Past Anesthesia/Blood Transfusion Reactions: No Reported Reaction Date of Last Stent Placement:: August 2020 Past Psychological History: Anxiety Additional Psychological History / Comment(s): SLIGHT ANXIETY Smoking Status: Current every day smoker Past Alcohol Use History: None Reported Past Drug Use History: Marijuana Additional Drug Use History / Comment(s): pt. states she smokes marijuana OCCASIONALLY AND TAKES takes vicodin for pain ALL THE TIME - Past Family History Father History Unknown: Yes Additional Family Medical History / Comment(s): UNKNOWN Brother(s) Family Medical History: No Reported History Sister(s) Family Medical History: No Reported History Mother Family Medical History: Hypertension Medications and Allergies Home Medications Medication Instructions Recorded Confirmed Type Nitroglycerin Sl Tabs [Nitrostat] 0.4 mg SL Q5M PRN 08/26/20 01/30/24 History atenoloL 25 mg PO BID 12/21/20 01/30/24 History Furosemide [Lasix] 20 mg PO DAILY PRN 01/30/24 01/30/24 History HYDROcodone/APAP 10-325MG [[place] 1 tab PO BID 01/30/24 01/30/24 History 10-325] lisinopriL [Zestril] 5 mg PO TID 01/30/24 01/30/24 History Allergies Allergy/AdvReac Type Severity Reaction Status Date / Time No Known Allergies Allergy Verified 01/30/24 13:47 Physical Exam Vitals: Vital Signs Temp Pulse Pulse Resp BP BP Pulse Ox 01/31/24 08:43 55 L 01/31/24 08:41 98.5 F 55 L 18 135/74 97 01/31/24 04:00 98.2 F 74 18 132/70 98 01/31/24 00:00 97.9 F 58 L 18 143/55 96 01/30/24 20:00 97.8 F 71 18 134/72 99 01/30/24 19:30 97.4 F L 68 18 124/72 98 01/30/24 18:18 73 18 105/69 96 01/30/24 15:59 71 16 100/64 94 L 01/30/24 12:55 97.7 F 68 17 117/67 97 Intake and Output 01/30/24 01/31/24 01/31/24 22:59 06:59 14:59 Intake Total 53.181 55.301 86.387 Balance 53.181 55.301 86.387 Intake: Intake, IV Titration 53.181 55.301 86.387 Amount Heparin Sod,Pork in 0.45% 53.181 55.301 86.387 NaCl 25,000 unit In 0.45 % NaCl 1 250ml.bag @ 12 UNITS/KG/HR 9.525 mls/hr IV .Q24H [facility] Rx#: [id number] Oral 0 Other: Voiding Method Toilet Toilet Toilet # Voids 0 1 Weight 79.379 kg Results 01/31/24 07:46 01/30/24 11:12 Cardiac Enzymes 01/30/24 01/30/24 01/30/24 Range/Units 11:12 11:12 14:47 AST 24 (14-36) U/L Troponin I 0.313 H* 0.446 H* (0.000-0.034) ng/mL 01/30/24 Range/Units 17:42 AST (14-36) U/L Troponin I 0.514 H* (0.000-0.034) ng/mL Coagulation 01/30/24 01/30/24 01/31/24 Range/Units 11:12 17:42 00:14 PT 10.1 (10.0-12.5) sec APTT 25.9 75.6 H 41.9 H (22.0-30.0) sec 01/31/24 Range/Units 07:46 PT (10.0-12.5) sec APTT 43.2 H (22.0-30.0) sec Lipids 01/31/24 Range/Units 07:46 Triglycerides 117.00 (0.00-149.00) mg/dL Cholesterol 213.00 H (0.00-200.00) mg/dL HDL Cholesterol 41.70 (40.00-60.00) mg/dL Cholesterol/HDL Ratio 5.11 Ratio CBC 01/30/24 01/31/24 Range/Units 11:12 07:46 WBC 11.0 H (3.8-10.6) k/uL RBC 4.37 (3.80-5.40) m/uL Hgb 13.9 (11.4-16.0) gm/dL Hct 43.6 (34.0-46.0) % Plt Count 255 230 (150-450) k/uL Comprehensive Metabolic Panel 01/30/24 Range/Units 11:12 Sodium 141 (137-145) mmol/L Potassium 3.7 (3.5-5.1) mmol/L Chloride 109 H (98-107) mmol/L Carbon Dioxide 23 (22-30) mmol/L BUN 19 H (7-17) mg/dL Creatinine 0.80 (0.52-1.04) mg/dL Glucose 99 (74-99) mg/dL Calcium 9.1 (8.4-10.2) mg/dL AST 24 (14-36) U/L ALT 15 (4-34) U/L Alkaline Phosphatase 104 (38-126) U/L Total Protein 7.1 (6.3-8.2) g/dL Albumin 4.1 (3.5-5.0) g/dL Current Medications Generic Name Dose Route Start Last Admin Trade Name Freq PRN Reason Stop Dose Admin Hydrocodone Bitart/Acetaminophen 1 each 01/30/24 21:00 01/31/24 05:43 Hydrocodone/Apap 10-325mg 1 Each Tab PO 1 each BID [facility] Administration Aspirin 81 mg 01/31/24 09:00 01/31/24 05:43 Aspirin 81 Mg PO 81 mg DAILY [facility] Administration Atenolol 25 mg 01/30/24 21:00 01/31/24 05:43 Atenolol 25 Mg Tab PO 25 mg BID [facility] Administration Atorvastatin Calcium 40 mg 01/31/24 09:00 01/31/24 05:43 Atorvastatin 40 Mg Tab PO 40 mg DAILY [facility] Administration Clopidogrel Bisulfate 75 mg 01/31/24 09:00 01/31/24 05:43 Clopidogrel 75 Mg Tab PO 75 mg DAILY [facility] Administration Heparin Sodium (Porcine) 0 unit 01/30/24 12:31 01/31/24 10:09 Heparin Sodium 1,000 Un/Ml (10ml Vl) IV 1,975 unit Q6HR PRN Administration Low PTT Protocol Heparin Sodium/Sodium Chloride 250 mls @ 9.525 mls/hr 01/30/24 12:45 01/31/24 10:19 25,000 unit/ Sodium Chloride IV 14 units/kg/hr .Q24H [facility] 11.113 mls/hr Administration Protocol 12 UNITS/KG/HR Lisinopril 5 mg 01/31/24 09:00 01/31/24 05:43 Lisinopril 5 Mg Tab PO 5 mg TID [facility] Administration Nitroglycerin 1 inch 01/30/24 18:00 01/31/24 05:43 Nitroglycerin Oint 1 Inch/Gm Packet TOPICAL 1 inch Q6HR [facility] Administration Intake and Output 01/30/24 01/31/24 01/31/24 22:59 06:59 14:59 Intake Total 53.181 55.301 86.387 Balance 53.181 55.301 86.387 Intake: Intake, IV Titration 53.181 55.301 86.387 Amount Heparin Sod,Pork in 0.45% 53.181 55.301 86.387 NaCl 25,000 unit In 0.45 % NaCl 1 250ml.bag @ 12 UNITS/KG/HR 9.525 mls/hr IV .Q24H [facility] Rx#: [id number] Oral 0 Other: Voiding Method Toilet Toilet Toilet # Voids 0 1 Weight 79.379 kg 01/31/24 07:46 01/30/24 11:12
--- NOTE | 2024-01-31 14:17 | P.PN ---
Subjective Progress Note Date: 01/31/24 53-year-old female with PMH of CAD post stent and CABG, hypertension, fibromyalgia, lupus presents to the ED for chest pain. Chest pain started 4 days ago initially occurring twice a day. Frequency of her chest pain has been getting worse occurring hourly today. Chest pain is right-sided, burning in na ture with radiation to the right arm. Pain is associated with nausea and diaphoresis. Nitroglycerin relieved her chest pain. In the ED, she underwent extensive evaluation. BP 175/86, HR 75, RR 18, T 98.4F, 100% on RA. CBC, coag panel, CMP performed significant for WBC 11, chloride 109, BUN 19. D-dimer 0.4. Troponin 0.313. Magnesium 2.0. EKG showed sinus rhythm with no ST depression or elevation. Chest x-ray negative. Patient is started on a heparin drip and admitted for non-ST elevation PR. 01/30 Patient was seen and examined. No chest pain. Cardiology consulted, recommends cath. APTT 43.2. Trponin 0.446, 0.514. Lipid panel T. Chol 213, LDL 147.9. General: non toxic, no distress, appears at stated age Derm: warm, dry Head: atraumatic, normocephalic, symmetric Eyes: EOMI, no lid lag, anicteric sclera Mouth: no lip lesion, mucus membranes moist Cardiovascular: S1S2 reg, no murmur Lungs: CTA bilateral, no rhonchi, no rales , no accessory muscle use Ext: no gross muscle atrophy, no edema, no contractures Neuro: no focal neuro deficits Psych: Alert, oriented, appropriate affect Based on my assessment of this patient, this patient meets a high complexity level of care. Patient has an acute diagnosis of NSTEMI which poses a threat to life or bodily function. NSTEMI: Status post ASA 325 mg PO x 1. Start ASA 81 mg PO QD. Start Heparin drip low intensity. Telemetry monitoring. Echo ordered. Cardiology consulted, plans for cath. Hypertension: Lisinopril 5 mg PO TID. Atenolol 25 mg PO BID. Fibromyalgia: [place] 10 PO BID. Lupus CODE STATUS: FULL CODE DVT Prophylaxis: Heparin drip GI Prophylaxis: Designated medical POA if patient is not able to make medical decisions for themselves: Daughter I have reviewed the following individual pension consultant notes: Cardiology. I have reviewed the results of the following tests: APTT I have ordered the following tests: Echo pending. Coag panel I have discussed the care of this patient with the following independent historian: JENNY I have independently interpreted the following test below: I have discussed the management of this patient with the following physician: Objective - Vital Signs Vital signs: Vital Signs Temp 98.5 F 01/31/24 08:41 Pulse 55 L 01/31/24 08:43 Resp 18 01/31/24 08:41 BP 135/74 01/31/24 08:41 Pulse Ox 97 01/31/24 08:41 FiO2 Intake & Output 01/30/24 01/31/24 01/31/24 18:59 06:59 18:59 Intake Total 53.181 55.301 86.387 Balance 53.181 55.301 86.387 Weight 79.379 kg 79.379 kg Intake: Intake, IV Titration 53.181 55.301 86.387 Amount Heparin Sod,Pork in 0.45% 53.181 55.301 86.387 NaCl 25,000 unit In 0.45 % NaCl 1 250ml.bag @ 12 UNITS/KG/HR 9.525 mls/hr IV .Q24H [facility] Rx#: [id number] Oral 0 Other: Voiding Method Toilet Toilet # Voids 1 - Labs CBC & Chem 7: 01/31/24 07:46 01/30/24 11:12 Labs: Abnormal Lab Results - Last 24 Hours (Table) 01/30/24 01/30/24 01/30/24 Range/Units 14:47 17:42 17:42 APTT 75.6 H (22.0-30.0) sec Troponin I 0.446 H* 0.514 H* (0.000-0.034) ng/mL Cholesterol (0.00-200.00) mg/dL LDL Cholesterol, Calc (0.0-131.0) mg/dL 01/31/24 01/31/24 01/31/24 Range/Units 00:14 07:46 07:46 APTT 41.9 H 43.2 H (22.0-30.0) sec Troponin I (0.000-0.034) ng/mL Cholesterol 213.00 H (0.00-200.00) mg/dL LDL Cholesterol, Calc 147.9 H (0.0-131.0) mg/dL
[2024-01-31] MEDS: HYDROcodone/APAP 10-325MG 1 EACH TAB PO SCH (16:16)
[2024-01-31] MEDS ORDERED: NITROGLYCERIN SL TABS 0.4 MG TAB SUBLINGUAL PRN (17:13)
[2024-01-31] MEDS ORDERED: ALPRAZolam 0.5 MG TAB PO PRN (17:13)
[2024-01-31] MEDS ORDERED: ALPRAZolam 0.25 MG TAB PO PRN (17:13)
--- NOTE | 2024-01-31 17:19 | CA ---
Transthoracic Echo Report Name: Suni Harmon Age: 53 Gender: F : 1970 Exam Date: 01/30/2024 13:28 Exam Location: [facility] Ht (in): 67 Wt (lb): 175 Ordering Physician: Andrew Quintanilla Attending/Referring Phys: [id number], Dwight Clinical Account Specialist Tanja Tran, ZAINA Procedure CPT: Indications: nstemi Cardiac Hx: Technical Quality: Fair Contrast 1: Total Dose (mL): Contrast 2: Total Dose (mL): MEASUREMENTS (Male / Female) Normal Values 2D ECHO LV Diastolic Diameter PLAX 4.7 cm 4.2 - 5.9 / 3.9 - 5.3 cm LV Systolic Diameter PLAX 2.6 cm IVS Diastolic Thickness 1.2 cm 0.6 - 1.0 / 0.6 - 0.9 cm LVPW Diastolic Thickness 1.2 cm 0.6 - 1.0 / 0.6 - 0.9 cm LV Relative Wall Thickness 0.5 RV Internal Dim ED PLAX 2.4 cm LVOT Diameter 1.7 cm LA Systolic Diameter LX 3.5 cm 3.0 - 4.0 / 2.7 - 3.8 cm LV Diastolic Volume MOD BP 67.3 cm??? 67 - 155 / 56 - 104 cm??? LV Systolic Volume MOD BP 31.8 cm??? 22 - 58 / 19 - 49 cm??? LV Ejection Fraction MOD BP 52.8 % >= 55 % LV Cardiac Index MOD BP 1181.8 cm???/min???m??? LV Diastolic Volume MOD 4C 74.1 cm??? LV Systolic Volume MOD 4C 30.4 cm??? LV Ejection Fraction MOD 4C 59.0 % LV Cardiac Index MOD 4C 1453.9 cm???/min???m??? LV Diastolic Length 4C 6.8 cm LV Systolic Length 4C 5.7 cm LV Diastolic Volume MOD 2C 57.1 cm??? LV Systolic Volume MOD 2C 26.6 cm??? LV Ejection Fraction MOD 2C 53.4 % LV Cardiac Index MOD 2C 1013.9 cm???/min???m??? LV Diastolic Length 2C 7.3 cm LV Systolic Length 2C 7.3 cm M-MODE Aortic Root Diameter MM 3.0 cm LA Systolic Diameter MM 2.8 cm LA Ao Ratio MM 0.9 DOPPLER AV Peak Velocity 206.2 cm/s AV Peak Gradient 17.0 mmHg AV Mean Velocity 150.7 cm/s AV Mean Gradient 10.1 mmHg AV Velocity Time Integral 58.4 cm LVOT Peak Velocity 118.3 cm/s LVOT Peak Gradient 5.6 mmHg LVOT Velocity Time Integral 29.2 cm LVOT Stroke Volume 63.1 cm??? LVOT Stroke Volume Index 33.0 ml/m??? LVOT Cardiac Index 2098.8 cm???/min???m??? AV Area Cont Eq vti 1.1 cm??? AV Area Cont Eq pk 1.2 cm??? Mitral E Point Velocity 99.9 cm/s Mitral A Point Velocity 92.3 cm/s Mitral E to A Ratio 1.1 MV Deceleration Time 309.4 ms MV E' Velocity 7.6 cm/s Mitral E to MV E' Ratio 13.2 TR Peak Velocity 223.5 cm/s TR Peak Gradient 20.0 mmHg Right Ventricular Systolic Press 25.2 mmHg FINDINGS Left Ventricle Left ventricular ejection fraction is estimated at 55-60%. Normal left ventricular systolic function with no obvious regional wall motion abnormalities. Left ventricular cavity size normal. Mildly increased septal wall thickness. Mildly increased posterior wall thickness. Right Ventricle Normal right ventricular size and function. Right ventricular systolic pressure within normal limits. Right Atrium Normal right atrial size. Left Atrium Normal left atrial size. Mitral Valve Structurally normal mitral valve. Trace to mild mitral regurgitation. Aortic Valve Mild aortic stenosis with a peak gradient of 17mmHg and a mean gradient of 10 mmHg. Trace aortic regurgitation. Trileaflet aortic valve. Tricuspid Valve Structurally normal tricuspid valve. [id number] tricuspid regurgitation. Pulmonic Valve Structurally normal pulmonic valve. No pulmonic stenosis. Trace pulmonic regurgitation. Pericardium No pericardial or pleural effusion. Aorta Normal size aortic root and proximal ascending aorta. CONCLUSIONS Preserved LV size and systolic function Mild aortic stenosis Previewed by: Dr. Manoj Seaman MD (Electronically Signed) Final Date: 31 January 2024 17:18
[2024-01-31] MEDS: atenoloL 25 MG TAB PO SCH (21:00)
[2024-01-31] MEDS: NICOTINE 14MG/24HR PATCH TRANSDERM SCH (21:04)
[2024-02-01] MEDS: ACETAMINOPHEN TAB 325 MG TAB PO PRN (00:27)
[2024-02-01] MEDS: ATORVASTATIN 80 MG TAB PO ONE (04:44)
[2024-02-01] MEDS: ASPIRIN 325 MG TAB PO ONE (04:44)
[2024-02-01] MEDS ORDERED: HEPARIN SODIUM,PORCINE 10,000 UNIT in SODIUM CHLORIDE 0.9% 1,000 ML IRRIGATION PRN (07:00)
[2024-02-01] MEDS ORDERED: HEPARIN SODIUM,PORCINE (1 ML) 2,500 UNIT in SODIUM CHLORIDE 0.9% 250 ML IRRIGATION PRN (07:00)
[2024-02-01] MEDS ORDERED: VERAPAMIL 2.5 MG/ML 2 ML AMP ONE (07:29)
[2024-02-01] MEDS ORDERED: fentaNYL (PF) 50 MCG/ML 2 ML AMP ONE (07:29)
[2024-02-01] MEDS ORDERED: LIDOCAINE 1% INJ 10MG/ML (20 ML MDV) ONE ×3 (07:29→09:59)
[2024-02-01] MEDS: fentaNYL (PF) 50 MCG/ML 2 ML AMP IVP ONE (07:44)
[2024-02-01] MEDS: LIDOCAINE 1% INJ 10MG/ML (30 ML VIAL-PF) SQ ONE (07:47)
[2024-02-01] MEDS: MIDAZOLAM 2 MG/2 ML VIAL IVP ONE (07:49)
[2024-02-01] MEDS: SODIUM CHLORIDE 0.9% 1,000 ML IV ONE (07:50)
[2024-02-01] MEDS: HEPARIN SODIUM 1,000 UN/ML (10ML VL) IVP ONE ×2 (08:05→08:18)
[2024-02-01] MEDS: CLOPIDOGREL 75 MG TAB PO ONE (08:07)
[2024-02-01] MEDS ORDERED: CLOPIDOGREL 75 MG TAB ONE (08:10)
[2024-02-01] MEDS: IOPAMIDOL-370 100ML BTL INJ ONE ×2 (08:26→08:50)
[2024-02-01] MEDS ORDERED: ZOLPIDEM 5 MG TAB PO PRN (08:49)
[2024-02-01] MEDS ORDERED: NITROGLYCERIN SL TABS 0.4 MG TAB SUBLINGUAL PRN (08:49)
[2024-02-01] MEDS ORDERED: ATROPINE SULFATE 0.1 MG/ML 10ML SYRINGE IV PRN (08:49)
[2024-02-01] MEDS ORDERED: RX INFO: IV CONTRAST WAS GIVEN 1 EACH MISC MISCELLANE PRN (08:49)
[2024-02-01] MEDS ORDERED: MAG HYDROX/AL HYDROX/SIMETH 30 ML CUP PO PRN (08:49)
--- NOTE | 2024-02-01 09:00 | P.CARDCATH ---
Date of Procedure: 02/01/24 Description of Procedure: Cardiac Catheterization: The patient is a 53-year-old female with a known history of CAD, status post CABG and stenting, most recently in 2020, history of chronic tobacco use and hyperlipidemia who presented with chest discomfort and evidence of non-STEMI. Recommendations were made regarding cardiac catheterization, the risks and the complications were discussed with the patient who is in full understanding and agreement. Procedure Description: Patient was brought to clinical laboratory technologist in fasting semi-sedated state after receiving Fentanyl and Benadryl achieiving moderate conscious sedated state. Using Xylocaine Anesthesia and modified Seldinger technique, and using micropuncture t echnique a 6-[place] sheath was introduced in the right femoral artery . Subsequently, selective coronary angiography was performed using a 6-[place] 4 bend Shira catheter. Multiple views of the coronary artery including hemiaxial views were obtained. The right Shira catheter was used to cannulate the SVG to the OM and to the RCA. The 6 [place] pigtail catheter was used to cross the aortic valve and LVEDP was calculated. PCI: After removing the catheters a 6 [place] FR 4 guiding catheter was introduced and the system and after cannulating the saphenous vein graft to the OM 0.014 BMW J-wire was positioned distally subsequently a 2.5 x 12 mm trek balloon was advanced and 1 inflation at 8 praveena was done. After removing the balloon a CeloNova [place] eye IVUS catheter was introduced and imaging were obtained that revealed a landing zone of 3.75-4.0 diameter. After removing the catheter a 3.5 x 48 mm Xience christal point stent was advanced and deployed at 16 praveena. Subsequently repeat IVUS was done and after removing the catheter a 4.0 x 20 mm NC trek balloon was advanced and multiple inflation at 10 praveena were done. After the last inflation the balloon and the wire was removed and images were obtained and revealed stable successful stenting. Following that, catheter and sheath were removed. Hemostasis was obtained with deployment of Angio-Seal. There was no immediate complication. Patient was returned to room in stable condition. Of note, the patient received a total of 7000 units of intravenous heparin as well as intra-arterial verapamil. She received clopidogrel. Her ACT was monitored. She had chest discomfort and EKG changes that resolved at the end of the procedure. Findings: Left main: This is a large size vessel, bifurcating into LAD and left circumflex the distal left main has 10 to 20% plaque with no high-grade stenosis LAD: This is a large size vessel, giving rise to 2 diagonal branch of moderate caliber the stented segment in the proximal and mid LAD and the distal left main are patent with no significant in-stent restenosis. There is mild intimal disease in the midsegment of 20 to 30% Left circumflex: This vessel has a 99% stenosis proximally and no significant flow in the midsegment RCA: This vessel is totally occluded in the midsegment with no significant antegrade flow SVG to the OM the proximal and distal anastomotic site are patent, the proximal segment of the graft has a 95% eccentric lesion the flow into the OM is brisk. There is intimal disease in the OM SVG to the RCA the proximal and distal anastomotic site are patent, the flow in the PDA and retrograde flow in the PLV is good. There is 20 to 30% plaque in the proximal segment. Left Ventriculogram: Not performed Hemodynamics: There was no gradient across aortic valve, LVEDP was 18-20 mmHg Conclusion: 1. Chronically occluded left circumflex and RCA 2. Patent stent into the left main and LAD with mild intimal disease 3. Patent SVG to the PDA 4. Patent SVG to the OM with significant disease proximally 5. Successful stenting of the SVG to the OM with IVUS imaging with reduction of stenosis from 95% to less than 5% with LYNETTE-3 flow Recommendations: The patient will continue on aspirin and clopidogrel for 1 year without any interruption. The importance of dual antiplatelet treatment and smoking cessation was discussed with the patient. Will attempt to maintain her LDL below 70 mg/dL.. The findings and the recommendations were discussed with the patient and the family and they were in full understanding and agreement. Duration of sedation is 65 minutes.
[2024-02-01] MEDS: METOPROLOL TARTRATE 25 MG TAB PO SCH (09:22)
[2024-02-01] MEDS: lisinopriL 10 MG TAB PO SCH (09:22)
[2024-02-01] MEDS: SODIUM CHLORIDE 0.9% 1,000 ML in EMPTY BAG 1 BAG IV SCH (09:22)
[2024-02-01] MEDS: ONDANSETRON 4 MG/2 ML VIAL IVP PRN (10:42)
[2024-02-01] MEDS: amLODIPine 10 MG TAB PO SCH (12:24)
[2024-02-01 12:32] LABS: Mean Platelet Volume 8.1; Platelet Count 208 k/uL (150-450)
--- NOTE | 2024-02-01 12:47 | P.PN ---
Subjective Progress Note Date: 02/01/24 53-year-old female with PMH of CAD post stent and CABG, hypertension, fibromyalgia, lupus presents to the ED for chest pain. Chest pain started 4 days ago initially occurring twice a day. Frequency of her chest pain has been getting worse occurring hourly today. Chest pain is right-sided, burning in na ture with radiation to the right arm. Pain is associated with nausea and diaphoresis. Nitroglycerin relieved her chest pain. In the ED, she underwent extensive evaluation. BP 175/86, HR 75, RR 18, T 98.4F, 100% on RA. CBC, coag panel, CMP performed significant for WBC 11, chloride 109, BUN 19. D-dimer 0.4. Troponin 0.313. Magnesium 2.0. EKG showed sinus rhythm with no ST depression or elevation. Chest x-ray negative. Patient is started on a heparin drip and admitted for non-ST elevation CA. 01/30 Patient was seen and examined. No chest pain. Cardiology consulted, recommends cath. APTT 43.2. Trponin 0.446, 0.514. Lipid panel T. Chol 213, LDL 147.9. 01/31 Patient was seen and examined. APTT 60.9. Underwent cardiac cath, stent placed SVG to OM. She reports right groin and flank pain starting at the site of cath. Also complains of some nausea but no vomiting. General: non toxic, no distress, appears at stated age Derm: warm, dry Head: atraumatic, normocephalic, symmetric Eyes: EOMI, no lid lag, anicteric sclera Mouth: no lip lesion, mucus membranes moist Cardiovascular: S1S2 reg, no murmur Lungs: CTA bilateral, no rhonchi, no rales , no accessory muscle use Ext: no gross muscle atrophy, no edema, no contractures Neuro: no focal neuro deficits Psych: Alert, oriented, appropriate affect Based on my assessment of this patient, this patient meets a high complexity level of care. Patient has an acute diagnosis of NSTEMI which poses a threat to life or bodily function. NSTEMI: Status post ASA 325 mg PO x 1. ASA 81 mg PO QD. Plavix 75 mg PO QD. Heparin drip low intensity. Telemetry monitoring. Echo ordered. Cardiology consulted, plans for cath today. Hypertension: Lisinopril 5 mg PO TID. Metoprolol 25 mg PO BID. Fibromyalgia: [place] 10 PO BID. Lupus CODE STATUS: FULL CODE DVT Prophylaxis: Lovenox GI Prophylaxis: Designated medical POA if patient is not able to make medical decisions for themselves: Daughter I have reviewed the following end user consultant notes: Cardiology. Cardiac cath note. I have reviewed the results of the following tests: APTT I have ordered the following tests: Echo pending. Coag panel I have discussed the care of this patient with the following independent historian: RN I have independently interpreted the following test below: I have discussed the management of this patient with the following physician: Objective - Vital Signs Vital signs: Vital Signs Temp 98.2 F 01/31/24 20:00 Pulse 67 02/01/24 04:00 Resp 18 02/01/24 04:00 BP 138/65 02/01/24 04:00 Pulse Ox 97 02/01/24 04:00 FiO2 Intake & Output 01/31/24 02/01/24 02/01/24 18:59 06:59 18:59 Intake Total 281.437 115.699 Balance 281.437 115.699 Intake: Intake, IV Titration 163.437 115.699 Amount Heparin Sod,Pork in 0.45% 163.437 115.699 NaCl 25,000 unit In 0.45 % NaCl 1 250ml.bag @ 12 UNITS/KG/HR 9.525 mls/hr IV .Q24H [facility] Rx#: [id number] Oral 118 Other: Voiding Method Toilet Toilet # Voids 2 - Labs CBC & Chem 7: 02/01/24 12:08 01/30/24 11:12 Labs: Abnormal Lab Results - Last 24 Hours (Table) 01/31/24 01/31/24 01/31/24 Range/Units 07:46 16:09 23:48 APTT 112.2 H* 60.9 H (22.0-30.0) sec Cholesterol 213.00 H (0.00-200.00) mg/dL LDL Cholesterol, Calc 147.9 H (0.0-131.0) mg/dL
[2024-02-01 13:29] LABS: African American GFR (CKD) >90 (>60 ml/min/1.73 sqM); Anion Gap 6 mmol/L; Blood Urea Nitrogen 15 mg/dL (7-17); Calcium 8.6 mg/dL (8.4-10.2); Carbon Dioxide 23 mmol/L (22-30); Chloride 112 mmol/L (98-107); Glucose 156 mg/dL (74-99); Non-African American GFR(CKD) >90 (>60 ml/min/1.73 sqM); Potassium 3.9 mmol/L (3.5-5.1); Sodium 141 mmol/L (137-145)
[2024-02-01 13:30] VITALS: BMI 27.3
[2024-02-01] MEDS: HYDROcodone/APAP 10-325MG 1 EACH TAB PO SCH (14:14)
[2024-02-02 06:52] LABS: Mean Platelet Volume 8.5; Platelet Count 194 k/uL (150-450)
[2024-02-02 08:28] LABS: African American GFR (CKD) >90 (>60 ml/min/1.73 sqM); Anion Gap 3 mmol/L; Blood Urea Nitrogen 15 mg/dL (7-17); Calcium 8.7 mg/dL (8.4-10.2); Carbon Dioxide 26 mmol/L (22-30); Chloride 111 mmol/L (98-107); Glucose 102 mg/dL (74-99); Non-African American GFR(CKD) >90 (>60 ml/min/1.73 sqM); Sodium 140 mmol/L (137-145)
[2024-02-02] MEDS: ASPIRIN 81 MG PO SCH (08:43)
[2024-02-02] MEDS: ATORVASTATIN 40 MG TAB PO SCH (08:44)
[2024-02-02] MEDS: ENOXAPARIN 40 MG/0.4 ML SYRINGE SQ SCH (08:45)
[2024-02-02 09:45] VITALS: BP 136/72; PULSE 67; RESP 16; TEMP 97.8
[2024-02-02] MEDS: EZETIMIBE 10 MG TAB PO SCH (09:50)
--- NOTE | 2024-02-02 10:49 | P.DS ---
Providers Date of admission: 01/30/24 13:00 Expected date of discharge: 02/02/24 Attending physician: Candelaria Constantino DO Consults: 01/30/24 12:31 Consult Physician Urgent Consulting Provider: Joel Abdullahi Consult Reason/Comments: NSTEMI Do you want consulting provider notified?: Yes 02/01/24 08:49 Consult Physician Routine Consulting Provider: [facility] Consult Reason/Comments: Post Interventional Patient Do you want consulting provider notified?: Already Contacted Primary care physician: Stated None Hospital Course: 53-year-old female with PMH of CAD post stent and CABG, hypertension, fibromyalgia, lupus presents to the ED for chest pain. Chest pain started 4 days ago initially occurring twice a day. Frequency of her chest pain has been getting worse occurring hourly today. Chest pain is right-sided, burning in nature with radiation to the right arm. Pain is associated with nausea and diaphoresis. Nitroglycerin relieved her chest pain. In the ED, she underwent extensive evaluation. BP 175/86, HR 75, RR 18, T 98.4F, 100% on RA. CBC, coag panel, CMP performed significant for WBC 11, chloride 109, BUN 19. D-dimer 0.4. Troponin 0.313. Magnesium 2.0. EKG showed sinus rhythm with no ST depression or elevation. Chest x-ray negative. Patient is started on a heparin drip and admitted for non-ST elevation IL. Troponin 0.446, 0.514. Lipid panel T. Chol 213, LDL 147.9. Underwent cardiac cath, stent placed SVG to . 02/01 Patient was seen and examined. No chest pain. Feeling well. BMP done today shows Cl 111, glu 102. Hopeful plans for discharge home today. Prescriptions sent to pharmacy. Follow up with PCP within 1-2 days and Cardiology within 1 week of discharge. General: non toxic, no distress, appears at stated age Derm: warm, dry Head: atraumatic, normocephalic, symmetric Eyes: EOMI, no lid lag, anicteric sclera Mouth: no lip lesion, mucus membranes moist Cardiovascular: S1S2 reg, no murmur Lungs: CTA bilateral, no rhonchi, no rales , no accessory muscle use Ext: no gross muscle atrophy, no edema, no contractures Neuro: no focal neuro deficits Psych: Alert, oriented, appropriate affect Discharge Diagnosis: NSTEMI Hypertension Fibromyalgia Lupus This complex discharge took 35 minutes to complete. Patient Condition at Discharge: Stable Plan - Discharge Summary Discharge Rx Participant: Yes New Discharge Prescriptions: New Atorvastatin [Lipitor] 40 mg PO DAILY #30 tab lisinopriL [Zestril] 10 mg PO BID #60 tab Aspirin 81 mg PO DAILY #30 tab Metoprolol Tartrate [Lopressor] 12.5 mg PO BID #60 tab amLODIPine [Norvasc] 10 mg PO DAILY #30 tab Clopidogrel [Plavix] 75 mg PO DAILY #30 tab Ezetimibe [Zetia] 10 mg PO DAILY #30 tab Continue Nitroglycerin Sl Tabs [Nitrostat] 0.4 mg SL Q5M PRN PRN Reason: Chest Pain Furosemide [Lasix] 20 mg PO DAILY PRN PRN Reason: Edema HYDROcodone/APAP 10-325MG [[place] 10-325] 1 tab PO BID Discontinued atenoloL 25 mg PO BID lisinopriL [Zestril] 5 mg PO TID Discharge Medication List Nitroglycerin Sl Tabs [Nitrostat] 0.4 mg SL Q5M PRN 08/26/20 [History] Furosemide [Lasix] 20 mg PO DAILY PRN 01/30/24 [History] HYDROcodone/APAP 10-325MG [[place] 10-325] 1 tab PO BID 01/30/24 [History] Aspirin 81 mg PO DAILY #30 tab 02/02/24 [Rx] Atorvastatin [Lipitor] 40 mg PO DAILY #30 tab 02/02/24 [Rx] Clopidogrel [Plavix] 75 mg PO DAILY #30 tab 02/02/24 [Rx] Ezetimibe [Zetia] 10 mg PO DAILY #30 tab 02/02/24 [Rx] Metoprolol Tartrate [Lopressor] 12.5 mg PO BID #60 tab 02/02/24 [Rx] amLODIPine [Norvasc] 10 mg PO DAILY #30 tab 02/02/24 [Rx] lisinopriL [Zestril] 10 mg PO BID #60 tab 02/02/24 [Rx] Follow up Appointment(s)/Referral(s): Hiro Soto MD [STAFF PHYSICIAN] - 1 Week None,Stated [Primary Care Provider] - 1-2 days (Please find a PCP and schedule a follow up appointment [facility]; see provided list of area PCPs.) Patient Instructions/Handouts: Heart Catheterization (DC) Discharge/Stand Alone Forms: Who Do I Call?, Personal Manager Development, Area PCPs Discharge Disposition: HOME SELF-CARE
--- NOTE | 2024-02-02 11:25 | P.PN ---
Subjective Progress Note Date: 02/02/24 HISTORY OF PRESENTING ILLNESS Patient is pleasant 53-year-old female with history of lupus, fibromyalgia, hypertension, CAD status post CABG as well as stenting and aneurysm status post repair and tobacco abuse who presents secondary to chest pain. Patient follows with Dr. Soto were also had stenting with Dr. Greer 3-4 years ago. She originally was worked up and found to have aneurysm and eventually underwent repair as well as bypass with open heart surgery. She had been doing fairly well however had stenting of her LAD in 2019. She has been followed Dr. Soto in has significant statin intolerance and therefore off of any cholesterol regimen. She believes she cannot tolerate Zetia as well and Repatha worked however now not covered by insurance. She presents secondary to episodes of chest pain new in the last one week which will occur while she is just sitting there and sometimes with exertion. These are associated with nausea, diaphoresis and shortness breath and feels similar to her prior angina other than the fact that her prior angina was more left arm pain and currently is some right arm pain. She had chest pain and therefore was given nitro with improvement in pain and placed on nitro patch and currently has not had any recurrent chest pain. Troponins mildly elevated. 02/01 Patient underwent cardiac catheterization with Dr. Greer yesterday which found chronically occluded left circumflex and RCA. Patent stent into the left main and LAD with mild intimal disease. Patent SVG to PDA. Patent SVG to the OM. Patient denies having any chest pain. She states she has had trouble taking statins in the past and has tried Repatha but her insurance denied it. Patient will be started on Zetia for now due to her statin intolerance, no statin will be ordered. Patient also voices concern that in the past she has had a drop in her heart rate with Lopressor 25 mg and we will decrease this to 12.5 mg.. PHYSICAL EXAMINATION Vital signs reviewed. CONSTITUTIONAL: No apparent distress. HEENT: Head is normocephalic. Pupils are equal, round. Sclerae anicteric. Mucous membranes of the mouth are moist. No JVD. No carotid bruit. CHEST EXAMINATION: Lungs are clear to auscultation. No chest wall tenderness is noted on palpation or with deep breathing. HEART EXAMINATION: Regular rate and rhythm. S1, S2 heard. No murmurs, gallops or rub. ABDOMEN: Soft, nontender. Positive bowel sounds. EXTREMITIES: 2+ peripheral pulses, no lower extremity edema and no calf tenderness. NEUROLOGIC EXAMINATION: Patient is awake, alert and oriented x3. ASSESSMENT non-STEMI likely type I mechanism CAD with prior CABG as well as PCI History of aneurysm status post repair Hypertension Tobacco abuse Statin intolerance Fibromyalgia Lupus PLAN Continue current cardiac medications including the following changes No statin due to statin intolerance Start patient on Zetia 10 mg daily Decrease metoprolol to 12.5 mg twice daily Discussed tobacco cessation. Patient is cleared for discharge from cardiology and may follow-up with Dr. MISAEL Soto in 1 to 2 weeks. Nurse practitioner note has been reviewed, I agree with documented findings and plan of care. Patient was seen and examined. Objective - Vital Signs Vital signs: Vital Signs Temp 97.8 F 02/02/24 08:33 Pulse 67 02/02/24 08:33 Resp 16 02/02/24 08:33 BP 136/72 02/02/24 08:33 Pulse Ox 98 02/02/24 08:33 FiO2 21 02/01/24 09:15 Intake & Output 02/01/24 02/02/24 02/02/24 18:59 06:59 18:59 Intake Total 335.699 10 Balance 335.699 10 Weight 79.379 kg Intake: IV 220 10 Invasive Line 1 20 10 Intake, IV Titration 115.699 Amount Heparin Sod,Pork in 0.45% 115.699 NaCl 25,000 unit In 0.45 % NaCl 1 250ml.bag @ 12 UNITS/KG/HR 9.525 mls/hr IV .Q24H MITRA Rx#: [id number] Other: Voiding Method Toilet Toilet Toilet # Voids 1 2 - Labs CBC & Chem 7: 02/02/24 06:21 02/02/24 06:21 Labs: Abnormal Lab Results - Last 24 Hours (Table) 02/01/24 02/01/24 02/02/24 Range/Units 12:08 12:08 06:21 APTT 93.7 H (22.0-30.0) sec Chloride 112 H 111 H (98-107) mmol/L Glucose 156 H 102 H (74-99) mg/dL
[2024-02-02] MEDS ORDERED: METOPROLOL TARTRATE 12.5 MG TAB PO SCH (21:00)
== END 2024-02-02 11:23 | disposition home or self-care (01) | DRG 322 ==
LOC: EC 10:01 → 3SCARD 13:00
PROVIDERS: ADMIT Internal Medicine; ATTEND Internal Medicine
PROC: B240ZZ3 Ultrasonography of Single Coronary Artery, Intravascular (ICD-10-PCS; 2024-02-01)
PROC: 027034Z Dilation of Coronary Artery, One Artery with Drug-eluting Intraluminal Device, Percutaneous Approach (ICD-10-PCS; principal; 2024-02-01 11:30)
PROC: B2111ZZ Fluoroscopy of Multiple Coronary Arteries using Low Osmolar Contrast (ICD-10-PCS; 2024-02-01 11:30)
PROC: B2121ZZ Fluoroscopy of Single Coronary Artery Bypass Graft using Low Osmolar Contrast (ICD-10-PCS; 2024-02-01 11:30)
DX: I21.4 Non-ST elevation (NSTEMI) myocardial infarction (principal); I25.709 Atherosclerosis of coronary artery bypass graft(s), unspecified, with unspecified angina pectoris; M32.9 Systemic lupus erythematosus, unspecified; I11.0 Hypertensive heart disease with heart failure; I50.9 Heart failure, unspecified; I25.82 Chronic total occlusion of coronary artery; M79.7 Fibromyalgia; I25.119 Atherosclerotic heart disease of native coronary artery with unspecified angina pectoris; F17.210 Nicotine dependence, cigarettes, uncomplicated; Z95.5 Presence of coronary angioplasty implant and graft; Z82.49 Family history of ischemic heart disease and other diseases of the circulatory system; Z79.02 Long term (current) use of antithrombotics/antiplatelets; Z79.82 Long term (current) use of aspirin; Z79.899 Other long term (current) drug therapy; Z86.79 Personal history of other diseases of the circulatory system; I25.2 Old myocardial infarction; Z88.8 Allergy status to other drugs, medicaments and biological substances; Z86.718 Personal history of other venous thrombosis and embolism
CPT/HCPCS: 36415; 71046; 80048; 80053; 80061; 83735; 84484; 85025; 85049; 85379; 85610; 85730; 92978; 93005; 93306; 93459; 94760; 96365; 96366; 99291

== ENCOUNTER 2024-08-11 14:00 | Observation (INO) | payer OTHER ==
[2024-08-11 14:10] VITALS: TEMP 98.3
--- NOTE | 2024-08-11 14:45 | XR ---
EXAMINATION TYPE: XR chest 2V DATE OF EXAM: 08/11/2024 COMPARISON: 01/30/2024 HISTORY: Chest pain TECHNIQUE: Frontal and lateral views of the chest are obtained. FINDINGS: There is no focal air space opacity, pleural effusion, or pneumothorax seen. The cardiac silhouette size is within normal limits. The osseous structures are intact. IMPRESSION: No acute cardiopulmonary process. [facility], Workstation: CARLOZ 08/11/2024 2:43 PM
--- NOTE | 2024-08-11 14:55 | ED ---
Abdominal Pain HPI - General Source: patient, RN notes reviewed Mode of arrival: ambulatory Limitations: no limitations - History of Present Illness MD Complaint: abdominal pain <Radha Yu - Last Filed: 08/11/24 14:53> - General Source: patient, RN notes reviewed <Eboni La - Last Filed: 08/11/24 19:33> - General Chief Complaint: Abdominal Pain Stated Complaint: ABD PAIN Time Seen by Provider: 08/11/24 14:50 - History of Present Illness Initial Comments: Quick Note: This is a 54-year-old female who presents to the emergency department for epigastric pain. States that she has been dealing with similar pain since January of this year. She was evaluated here at that time and ended up needing a cardiac stent. She then had another stent placed in May, this time at [facility]. However, states that she continues to have this pain. States that the pain shoots into her back as well. She has occasional nausea with this. Denies any changes in bowel or bladder habits. (Radha Yu) 54-year-old female with history of CAD presenting to the ER with epigastric pain x 7 months. States she has been dealing with this pain since January of this year after she received stents for an NSTEMI. Patient describes pain as a dull, constant pain that radiates to the back. Pain is worse with food. Patient has been seen for this many times in the ER and by her PCP and reports that workup always returns negative. She does not believe it is cardiac pain. Patient is supposed to be taking Plavix, however reports she has not been taking it for several weeks. Denies history of abdominal conditions or surgeries. Denies alcohol use. Denies fever, chills, nausea, vomiting, constipation, diarrhea. Reports she has daily bowel movements, unable to report last bowel movement. When asked what made patient come into the ER today as his pain has been ongoing for several months, patient reports that she is "done with dealing with the pain". (Eboni La) - Related Data Home Medications Medication Instructions Recorded Confirmed Nitroglycerin Sl Tabs [Nitrostat] 0.4 mg SL Q5M PRN 08/26/20 01/30/24 Furosemide [Lasix] 20 mg PO DAILY PRN 01/30/24 01/30/24 HYDROcodone/APAP 10-325MG [[place] 1 tab PO BID 01/30/24 01/30/24 10-325] Previous Rx's Medication Instructions Recorded Aspirin 81 mg PO DAILY #30 tab 02/02/24 Atorvastatin [Lipitor] 40 mg PO DAILY #30 tab 02/02/24 Clopidogrel [Plavix] 75 mg PO DAILY #30 tab 02/02/24 Ezetimibe [Zetia] 10 mg PO DAILY #30 tab 02/02/24 Metoprolol Tartrate [Lopressor] 12.5 mg PO BID #60 tab 02/02/24 amLODIPine [Norvasc] 10 mg PO DAILY #30 tab 02/02/24 lisinopriL [Zestril] 10 mg PO BID #60 tab 02/02/24 Allergies Allergy/AdvReac Type Severity Reaction Status Date / Time [id number] Reductase Allergy Unknown Verified 08/11/24 14:10 Inhibitor Review of Systems ROS Other: All systems not noted in ROS Statement are negative. <Radha Yu - Last Filed: 08/11/24 14:53> ROS Other: All systems not noted in ROS Statement are negative. <Eboni La - Last Filed: 08/11/24 19:33> ROS Statement: Those systems with pertinent positive or pertinent negative responses have been documented in the HPI. Past Medical History Past Medical History: Chest Pain / Angina, Deep Vein Thrombosis (DVT), Hypertension, Myocardial Infarction ([place]), Skin Disorder Additional Past Medical History / Comment(s): fibromyalgia, lupus. double bypass, CONGESTIVE HEART FAILURE, HAS BLOOD CLOT IN RT FOREARM AND ANOTHER ONE IN LEFT LEG THIGH AREA Last Myocardial Infarction Date:: 08/25/20 History of Any Multi-Drug Resistant Organisms: None Reported Past Surgical History: Adenoidectomy, Coronary Bypass/CABG, Heart Catheterization With Stent, Tonsillectomy Additional Past Surgical History / Comment(s): DOUBLE BYPASS- 2015, ANEURYSM GRAFT NOV 2015 Past Anesthesia/Blood Transfusion Reactions: No Reported Reaction Date of Last Stent Placement:: August 2020 Past Psychological History: Anxiety Smoking Status: Current every day smoker Past Alcohol Use History: None Reported Past Drug Use History: Marijuana - Past Family History Father History Unknown: Yes Additional Family Medical History / Comment(s): UNKNOWN Brother(s) Family Medical History: No Reported History Sister(s) Family Medical History: No Reported History Mother Family Medical History: Hypertension <Radha Yu - Last Filed: 08/11/24 14:53> General Exam Limitations: no limitations <Radha Yu - Last Filed: 08/11/24 14:53> General appearance: alert, in no apparent distress Head exam: Present: atraumatic, normocephalic, normal inspection Eye exam: Present: normal appearance, PERRL, EOMI. Absent: scleral icterus, conjunctival injection, periorbital swelling ENT exam: Present: normal exam, mucous membranes moist Neck exam: Present: normal inspection. Absent: tenderness, meningismus, lymphad enopathy Respiratory exam: Present: normal lung sounds bilaterally. Absent: respiratory distress, wheezes, rales, rhonchi, stridor Cardiovascular Exam: Present: regular rate, normal rhythm, normal heart sounds. Absent: systolic murmur, diastolic murmur, rubs, gallop, clicks GI/Abdominal exam: Present: soft, normal bowel sounds. Absent: distended, tenderness, guarding, rebound, rigid Back exam: Absent: CVA tenderness (R), CVA tenderness (L) Neurological exam: Present: alert, oriented X3 Psychiatric exam: Present: normal affect, normal mood Skin exam: Present: warm, dry, intact, normal color. Absent: rash <Eboni La - Last Filed: 08/11/24 19:33> - General Exam Comments Initial Comments: Visual Physical Exam Vital signs reviewed General: Well-appearing, nontoxic, no acute distress. Head: Normocephalic, atraumatic Eyes: PERRLA, EOMI ENT: Airway patent Chest: Nonlabored breathing Skin: No visual rash, normal skin tone Neuro: Alert and oriented 3 Musculoskeletal: No gross abnormalities (Radha Yu) Course Vital Signs 08/11/24 14:06 Temperature 98.3 F Pulse Rate 87 Respiratory 18 Rate Blood Pressure 138/89 O2 Sat by Pulse 95 Oximetry Medical Decision Making <Radha Yu - Last Filed: 08/11/24 14:53> - Lab Data Result diagrams: 08/11/24 14:55 08/11/24 14:55 - EKG Data -: EKG Interpreted by Me <Eboni La - Last Filed: 08/11/24 19:33> - Medical Decision Making I performed the QuickNote portion of this chart. Signed Radha Yu PA-C. (Radha Yu) Was pt. sent in by a medical professional or institution (JASMIN Roman, [employer], urgent ca re, hospital, or usp...) When possible be specific @ -No Did you speak to anyone other than the patient for history (EMS, parent, family, police, friend...)? What history was obtained from this source @ -No Did you review nursing and triage notes (agree or disagree)? Why? @ -I reviewed and agree with nursing and triage notes Were old charts reviewed (outside hosp., previous admission, EMS record, old EKG, old radiological studies, urgent care reports/EKG's, usp records)? Report findings @ -No old charts were reviewed Differential Diagnosis (chest pain, altered mental status, abdominal pain women, abdominal pain men, vaginal bleeding, weakness, fever, dyspnea, syncope, he adache, dizziness, GI bleed, back pain, seizure, CVA, palpatations, mental health, musculoskeletal)? @ -Differential Abdominal Pain Women: Appendicitis, Cholecystitis, diverticulosis, ischemic bowel, pancreatitis, hepatitis, UTI, gastroenteritis, AAA, incarcerated hernia, bowel obstruction, constipation, inflammatory bowel, hepatitis, peptic ulcer disease, splenic infarction, perforated viscus, vulvitis, ovarian torsion, PID, kidney stone, placenta abruption, this is not meant to be an all-inclusive list EKG interpreted by me (3pts min.). @ -As above X-rays interpreted by me (1pt min.). @ -None done CT interpreted by me (1pt min.). @ -CT abdomen pelvis reveals acute interstitial [place] she has pancreatitis, no organizing fluid collections, nonobstructing bilateral renal calculi U/S interpreted by me (1pt. min.). @ -None done What testing was considered but not performed or refused? (CT, X-rays, U/S, labs)? Why? @ -None What meds were considered but not given or refused? Why? @ -None Did you discuss the management of the patient with other professionals (professionals i.e. JASMIN Roman, [employer]ER, lab, RT, psych nurse, social media intern, blade worker, teacher, senior major gifts officer, case preparer and liner)? Give summary @ -I spoke with Dr. López for admission Was smoking cessation discussed for >3mins.? @ -No Was critical care preformed (if so, how long)? @ -No Were there social determinants of health that impacted care today? How? (Homelessness, low income, unemployed, alcoholism, drug addiction, transportati on, low edu. Level, literacy, decrease access to med. care, halfway, rehab)? @ -No Was there de-escalation of care discussed even if they declined (Discuss DNR or withdrawal of care, Hospice)? DNR status @ -No What co-morbidities impacted this encounter? (DM, HTN, Smoking, COPD, CAD, Cancer, CVA, ARF, Chemo, Hep., AIDS, mental health diagnosis, sleep apnea, morbid obesity)? @ -None Was patient admitted / discharged? Hospital course, mention meds given and route, prescriptions, significant lab abnormalities, going to OR and other pertinent info. @ -Admitted. This is a 54-year-old female presenting with epigastric pain x 7 months. Vital signs are within acceptable limits. Abdomen is soft and n ontender. Patient is provided with IV fluids, antiemetics, and analgesics. EKG reveals normal sinus rhythm with no ST changes. Lab work including CBC, CMP, troponin, lipase remarkable for lipase 316, AST 40, CO2 20, otherwise unremarkable. Troponin is 0.022, comparable to previous. Potassium is 7.5 but is marked as a hemolyzed specimen. Urinalysis unremarkable. Chest x-ray reveals no acute process. CT abdomen pelvis reveals acute interstitial edematous pancreatitis. Results discussed with patient. I spoke with Dr. López for admission to observation with GI consultation. Patient was made n.p.o. and fluids and pain control were ordered at this time. Case was discussed with my ED attending Dr. Cui. Undiagnosed new problem with uncertain prognosis? @ -No Drug Therapy requiring intensive monitoring for toxicity (Heparin, Nitro, Insulin, Cardizem)? @ -No Were any procedures done? @ -No Diagnosis/symptom? @ -Acute pancreatitis Acute, or Chronic, or Acute on Chronic? @ -Acute Uncomplicated (without systemic symptoms) or Complicated (systemic symptoms)? @ -Uncomplicated Side effects of treatment? @ -No Exacerbation, Progression, or Severe Exacerbation? @ -No Poses a threat to life or bodily function? How? (Chest pain, [place], [place], pneumonia, PE, COPD, DKA, ARF, appy, cholecystitis, CVA, Diverticulitis, Homicidal, Suicidal, threat to staff... and all critical care pts) @ -Possibly (Eboni La) - Lab Data Lab Results 08/11/24 08/11/24 08/11/24 Range/Units 14:55 14:55 14:55 WBC 10.2 (3.8-10.6) k/uL RBC 4.27 (3.80-5.40) m/uL Hgb 13.5 (11.4-16.0) gm/dL Hct 42.1 (34.0-46.0) % MCV 98.6 (80.0-100.0) fL MCH 31.5 (25.0-35.0) pg MCHC 31.9 (31.0-37.0) g/dL RDW 13.6 (11.5-15.5) % Plt Count 243 (150-450) k/uL MPV 8.0 Neutrophils % 73 % Lymphocytes % 20 % Monocytes % 4 % Eosinophils % 2 % Basophils % 0 % Neutrophils # 7.4 (1.3-7.7) k/uL Lymphocytes # 2.1 (1.0-4.8) k/uL Monocytes # 0.4 (0-1.0) k/uL Eosinophils # 0.2 (0-0.7) k/uL Basophils # 0.0 (0-0.2) k/uL PT 10.0 (10.0-12.5) sec INR 0.9 (<1.2) APTT 19.6 L (22.0-30.0) sec Sodium 138 (137-145) mmol/L Potassium 5.7 H (3.5-5.1) mmol/L Chloride 113 H (98-107) mmol/L Carbon Dioxide 20 L (22-30) mmol/L Anion Gap 5 mmol/L BUN 16 (7-17) mg/dL Creatinine 0.60 (0.52-1.04) mg/dL Est GFR (CKD-EPI)AfAm >90 (>60 ml/min/1.73 sqM) Est GFR (CKD-EPI)NonAf >90 (>60 ml/min/1.73 sqM) Glucose 94 (74-99) mg/dL Calcium 9.6 (8.4-10.2) mg/dL Magnesium 1.8 (1.6-2.3) mg/dL Total Bilirubin 0.9 (0.2-1.3) mg/dL AST 40 H (14-36) U/L ALT 16 (4-34) U/L Alkaline Phosphatase 94 (38-126) U/L Troponin I (0.000-0.034) ng/mL Total Protein 8.2 (6.3-8.2) g/dL Albumin 4.6 (3.5-5.0) g/dL Amylase 88 (30-110) U/L Lipase 316 H (23-300) U/L Urine Color Urine Appearance (Clear) Urine pH (5.0-8.0) Ur Specific [place] (1.001-1.035) Urine Protein (Negative) Urine Glucose (UA) (Negative) Urine Ketones (Negative) Urine Blood (Negative) Urine Nitrite (Negative) Urine Bilirubin (Negative) Urine Urobilinogen (<2.0) mg/dL Ur Leukocyte Esterase (Negative) 08/11/24 08/11/24 Range/Units 14:55 15:46 WBC (3.8-10.6) k/uL RBC (3.80-5.40) m/uL Hgb (11.4-16.0) gm/dL Hct (34.0-46.0) % MCV (80.0-100.0) fL MCH (25.0-35.0) pg MCHC (31.0-37.0) g/dL RDW (11.5-15.5) % Plt Count (150-450) k/uL MPV Neutrophils % % Lymphocytes % % Monocytes % % Eosinophils % % Basophils % % Neutrophils # (1.3-7.7) k/uL Lymphocytes # (1.0-4.8) k/uL Monocytes # (0-1.0) k/uL Eosinophils # (0-0.7) k/uL Basophils # (0-0.2) k/uL PT (10.0-12.5) sec INR (<1.2) APTT (22.0-30.0) sec Sodium (137-145) mmol/L Potassium (3.5-5.1) mmol/L Chloride (98-107) mmol/L Carbon Dioxide (22-30) mmol/L Anion Gap mmol/L BUN (7-17) mg/dL Creatinine (0.52-1.04) mg/dL Est GFR (CKD-EPI)AfAm (>60 ml/min/1.73 sqM) Est GFR (CKD-EPI)NonAf (>60 ml/min/1.73 sqM) Glucose (74-99) mg/dL Calcium (8.4-10.2) mg/dL Magnesium (1.6-2.3) mg/dL Total Bilirubin (0.2-1.3) mg/dL AST (14-36) U/L ALT (4-34) U/L Alkaline Phosphatase (38-126) U/L Troponin I 0.022 (0.000-0.034) ng/mL Total Protein (6.3-8.2) g/dL Albumin (3.5-5.0) g/dL Amylase (30-110) U/L Lipase (23-300) U/L Urine Color Colorless Urine Appearance Clear (Clear) Urine pH 5.5 (5.0-8.0) Ur Specific [place] 1.013 (1.001-1.035) Urine Protein Negative (Negative) Urine Glucose (UA) Negative (Negative) Urine Ketones Negative (Negative) Urine Blood Negative (Negative) Urine Nitrite Negative (Negative) Urine Bilirubin Negative (Negative) Urine Urobilinogen <2.0 (<2.0) mg/dL Ur Leukocyte Esterase Negative (Negative) - EKG Data EKG Comments: EKG reveals normal sinus rhythm with no ST changes. Ventricular rate 83 bpm, MS interval 146, QRS duration 111, QT/QTc 364/404 (Eboni La) Disposition <Radha Yu - Last Filed: 08/11/24 14:53> Time of Disposition: 19:27 <Eboni La - Last Filed: 08/11/24 19:33> Clinical Impression: Acute pancreatitis Disposition: ADMITTED IP TO THIS [facility] Referrals: None,Stated [Primary Care Provider] - 1-2 days
[2024-08-11 15:09] LABS: Basophils % (A) 0 %; Eosinophils # (A) 0.2 k/uL (0-0.7); Eosinophils % (A) 2 %; HCT 42.1 % (34.0-46.0); HGB 13.5 gm/dL (11.4-16.0); Lymphocytes # (A) 2.1 k/uL (1.0-4.8); Lymphocytes % (A) 20 %; MCH 31.5 pg (25.0-35.0); MCHC 31.9 g/dL (31.0-37.0); MCV 98.6 fL (80.0-100.0); Monocytes # (A) 0.4 k/uL (0-1.0); Monocytes % (A) 4 %; Neutrophils # (A) 7.4 k/uL (1.3-7.7); Neutrophils % (A) 73 %; Platelet Count 243 k/uL (150-450); RBC 4.27 m/uL (3.80-5.40); RDW 13.6 % (11.5-15.5); WBC 10.2 k/uL (3.8-10.6)
[2024-08-11 15:21] LABS: ALT 16 U/L (4-34); African American GFR (CKD) >90 (>60 ml/min/1.73 sqM); Albumin 4.6 g/dL (3.5-5.0); Amylase 88 U/L (30-110); Anion Gap 5 mmol/L; Blood Urea Nitrogen 16 mg/dL (7-17); Calcium 9.6 mg/dL (8.4-10.2); Carbon Dioxide 20 mmol/L (22-30); Chloride 113 mmol/L (98-107); Glucose 94 mg/dL (74-99); Lipase 316 U/L (23-300); Magnesium 1.8 mg/dL (1.6-2.3); Non-African American GFR(CKD) >90 (>60 ml/min/1.73 sqM); Sodium 138 mmol/L (137-145); Total Bilirubin 0.9 mg/dL (0.2-1.3)
[2024-08-11 15:24] LABS: INR 0.9 (<1.2)
[2024-08-11 15:25] LABS: Partial Thromboplastin Time 19.6 sec (22.0-30.0)
[2024-08-11 15:41] LABS: Potassium 5.7 mmol/L (3.5-5.1)
[2024-08-11 15:42] LABS: AST 40 U/L (14-36); Alkaline Phosphatase 94 U/L (38-126); Total Protein 8.2 g/dL (6.3-8.2)
[2024-08-11 16:14] LABS: Appearance,Urine Clear (Clear); Bilirubin,Urine Negative (Negative); Blood,Urine Negative (Negative); Color,Urine Colorless; Glucose,Urine (UA) Negative (Negative); Ketones,Urine Negative (Negative); Leukocyte Esterase,Urine Negative (Negative); Nitrite,Urine Negative (Negative); PH, Urine 5.5 (5.0-8.0); Protein,Urine Negative (Negative); Specific Gravity,Urine 1.013 (1.001-1.035); Urobilinogen,Urine <2.0 mg/dL (<2.0)
[2024-08-11] MEDS: SODIUM CHLORIDE 0.9% 1,000 ML IV STA (17:08)
[2024-08-11] MEDS: KETOROLAC 15 MG/ML 1 ML VIAL IVP STA (17:10)
[2024-08-11] MEDS: MORPHINE SULFATE 4 MG/ML SYRINGE IVP STA (17:12)
--- NOTE | 2024-08-11 18:18 | CT ---
EXAMINATION TYPE: CT abdomen pelvis w con DATE OF EXAM: 08/11/2024 6:04 PM COMPARISON: None CLINICAL INDICATION: Female, 54 years old with history of epigastric pain; upper center abdomen pain that radiates to her back since January. TECHNIQUE: Axial CT abdomen pelvis w con;Sagittal and coronal reformats were created on a separate w orkstation. Contrast used:100 mL of Isovue 300 with IV Contrast, (none if empty) Oral contrast used: without Oral Contrast (none if empty) CT DLP: 971.4 mGycm, Automated exposure control for dose reduction was used. FINDINGS: LOWER CHEST: Unremarkable ABDOMEN LIVER: Unremarkable GALLBLADDER AND BILE DUCTS: Unremarkable. PANCREAS: Fat stranding changes around the pancreas. Pancreatic parenchyma SPLEEN: Unremarkable. ADRENAL GLANDS: Unremarkable. KIDNEYS AND URETERS: Nonobstructing bilateral renal calculi present right measuring up to 7 mm on the left measuring up to 10 mm. PELVIS BLADDER: No evidence for wall thickening or mass given limitations of exam. REPRODUCTIVE: Uterus is retroverted. ABDOMEN & PELVIS STOMACH AND BOWEL: No evidence of bowel obstruction. PERITONEUM/RETROPERITONEUM: No evidence of pneumoperitoneum or free fluid. VASCULATURE: No evidence of aortic aneurysm. MUSCULOSKELETAL: No acute osseous abnormalities LYMPH NODES: No gross evidence for lymphadenopathy. SOFT TISSUE/ABDOMINAL WALL: Fat-containing umbilical hernia. IMPRESSION: 1. Acute interstitial edematous pancreatitis. Correlate with serum lipase. 2. No organizing fluid collections. 3. Nonobstructing bilateral renal calculi. [facility], , 08/11/2024 6:16 PM
[2024-08-11] MEDS ORDERED: MORPHINE SULFATE 4 MG/ML SYRINGE IV PRN (19:25)
[2024-08-11] MEDS ORDERED: KETOROLAC 15 MG/ML 1 ML VIAL IVP PRN (19:25)
[2024-08-11] MEDS ORDERED: NALOXONE 0.4 MG/ML 1 ML VIAL IV PRN (19:25)
[2024-08-11] MEDS ORDERED: ONDANSETRON 4 MG/2 ML VIAL IVP PRN (19:25)
[2024-08-11] MEDS ORDERED: SODIUM CHLORIDE 0.9% 1,000 ML IV SCH (19:30)
--- NOTE | 2024-08-11 19:56 | P.HPIM ---
History of Present Illness H&P Date: 08/11/24 Chief Complaint: Abdominal pain History of present illness; 54-year-old female with hypertension, fibromyalgia, lupus, hyperlipidemia, CAD, diastolic CHF, history of DVT, history of DE presents with complaints of abdominal/epigastric pain. Patient reports she has been dealing with a similar pain since January when she initially came in to the hospital and was found to have an NSTEMI for which she received a stent. Patient reports in May she had another stent placed at [facility]. Patient reports the pain is dull and constant and radiates to her back. Patient reports the pain gets worse with food. Patient reports she should be taking Plavix but has not been for the last several weeks. Denies history of abdominal surgeries, alcohol use, fever, chills, nausea, vomiting, constipation, and diarrhea. States she has daily bowel movements but cannot remember her last bowel movement. EKG done in the ER showed heart rate of 83 bpm, no ST segment elevation or depression seen, no T-wave inversions seen. Normal sinus rhythm. ER CT ABD: Acute interstitial edematous pancreatitis, no organizing fluid collections, nonobstructing bilateral renal calculi. Patient admitted to internal medicine service REVIEW OF SYSTEMS: As above in HPI. The rest of the 14-point review of systems is negative. PHYSICAL EXAMINATION: GENERAL: The patient is alert and oriented x3, not in any acute distress. Well developed, well nourished. HEENT: No scleral icterus. No conjunctival pallor. Normocephalic, atraumatic. CARDIOVASCULAR: S1 and S2 present. No murmurs, rubs, or gallops. PULMONARY: Chest is clear to auscultation b/l, no wheezing or crackles. ABDOMEN: Soft, tender to palpation, nondistended, normoactive bowel sounds. No palpable organomegaly. MUSCULOSKELETAL: No joint swelling or deformity. EXTREMITIES: No cyanosis, clubbing, or pedal edema. NEUROLOGICAL: Gross neurological examination did not reveal any focal deficits. SKIN: No rashes. Assessment: 54-year-old female with hypertension, fibromyalgia, lupus, CAD, history of DVT, history of DE presents with complaints of abdominal/epigastric pain. ER CT showed acute interstitial admitted pancreatitis, admitted for further workup of pancreatitis and to be seen by GI. Plan: #Acute interstitial edematous pancreatitis: Lipase 316 and amylase 88 GI on consult, appreciate further recommendations Continue IV fluids Keep n.p.o. Continue analgesia #Hyperkalemia: Continue IV fluids Repeat BMP in the a.m. Chronic conditions: #History of CAD status post stent placement: Troponin 0.022 EKG showed NSR, 83 bpm Continue home medications including Plavix Continue to monitor #Hypertension: Continue home medications #Diastolic CHF: Continue home medications Most recent EF showed ejection fraction of 55 to 60% with normal left ventricular function. #Hyperlipidemia: Continue home atorvastatin 40 mg p.o. daily F: NS 75 cc/h E: None N: N.p.o. A: Normally ambulates at home unassisted DVT ppx: Lovenox 40 SQ daily GI ppx: Protonix 40 mg p.o. daily Dispo: Pending resolution of symptoms and clearance from GI. Likely stay is 24 to 48 hours. Charley Parham MD PGY-1 FM Dictation was produced using [employer] dictation software. please excuse any grammatical, word or spelling errors. Past Medical History Past Medical History: Chest Pain / Angina, Deep Vein Thrombosis (DVT), Hypertension, Myocardial Infarction (DE), Skin Disorder Additional Past Medical History / Comment(s): fibromyalgia, lupus. double bypass, CONGESTIVE HEART FAILURE, HAS BLOOD CLOT IN RT FOREARM AND ANOTHER ONE IN LEFT LEG THIGH AREA Last Myocardial Infarction Date:: 08/25/20 History of Any Multi-Drug Resistant Organisms: None Reported Past Surgical History: Adenoidectomy, Coronary Bypass/CABG, Heart Catheterization With Stent, Tonsillectomy Additional Past Surgical History / Comment(s): DOUBLE BYPASS- 2015, ANEURYSM GRAFT NOV 2015 Past Anesthesia/Blood Transfusion Reactions: No Reported Reaction Date of Last Stent Placement:: August 2020 Past Psychological History: Anxiety Smoking Status: Current every day smoker Past Alcohol Use History: None Reported Past Drug Use History: Marijuana - Past Family History Father History Unknown: Yes Additional Family Medical History / Comment(s): UNKNOWN Brother(s) Family Medical History: No Reported History Sister(s) Family Medical History: No Reported History Mother Family Medical History: Hypertension Medications and Allergies Home Medications Medication Instructions Recorded Confirmed Type Nitroglycerin Sl Tabs [Nitrostat] 0.4 mg SL Q5M PRN 08/26/20 01/30/24 History Furosemide [Lasix] 20 mg PO DAILY PRN 01/30/24 01/30/24 History HYDROcodone/APAP 10-325MG [[place] 1 tab PO BID 01/30/24 01/30/24 History 10-325] Aspirin 81 mg PO DAILY #30 tab 02/02/24 Rx Atorvastatin [Lipitor] 40 mg PO DAILY #30 tab 02/02/24 Rx Clopidogrel [Plavix] 75 mg PO DAILY #30 tab 02/02/24 Rx Ezetimibe [Zetia] 10 mg PO DAILY #30 tab 02/02/24 Rx Metoprolol Tartrate [Lopressor] 12.5 mg PO BID #60 tab 02/02/24 Rx amLODIPine [Norvasc] 10 mg PO DAILY #30 tab 02/02/24 Rx lisinopriL [Zestril] 10 mg PO BID #60 tab 02/02/24 Rx Allergies Allergy/AdvReac Type Severity Reaction Status Date / Time [id number] Reductase Allergy Unknown Verified 08/11/24 14:10 Inhibitor Physical Exam Vitals: Vital Signs Temp Pulse Resp BP Pulse Ox 08/11/24 14:06 98.3 F 87 18 138/89 95 Intake and Output 08/11/24 08/11/24 08/11/24 06:59 14:59 22:59 Other: Weight 79.379 kg Results CBC & Chem 7: 08/11/24 14:55 08/11/24 14:55 Labs: Abnormal Lab Results - Last 24 Hours (Table) 08/11/24 08/11/24 Range/Units 14:55 14:55 APTT 19.6 L (22.0-30.0) sec Potassium 5.7 H (3.5-5.1) mmol/L Chloride 113 H (98-107) mmol/L Carbon Dioxide 20 L (22-30) mmol/L AST 40 H (14-36) U/L Lipase 316 H (23-300) U/L
[2024-08-11 20:10] VITALS: BP 134/76; PULSE 74; RESP 20
[2024-08-12] MEDS ORDERED: HEPARIN SODIUM,PORCINE 5,000 UNIT/ML 1 ML VIAL SQ SCH
[2024-08-12] MEDS ORDERED: PANTOPRAZOLE 40 MG TABLET PO SCH (07:30)
== END 2024-08-11 20:10 | disposition left against medical advice (07) ==
LOC: EC 14:00 → 6NMEDSUR 19:49
PROVIDERS: ADMIT Internal Medicine; ATTEND Internal Medicine
DX: K85.80 Other acute pancreatitis without necrosis or infection (principal); N20.0 Calculus of kidney; E87.5 Hyperkalemia; T45.526A Underdosing of antithrombotic drugs, initial encounter; Z91.148 Patient's other noncompliance with medication regimen for other reason; I25.10 Atherosclerotic heart disease of native coronary artery without angina pectoris; I11.0 Hypertensive heart disease with heart failure; I50.30 Unspecified diastolic (congestive) heart failure; M32.9 Systemic lupus erythematosus, unspecified; E78.5 Hyperlipidemia, unspecified; M79.7 Fibromyalgia; I25.2 Old myocardial infarction; F41.9 Anxiety disorder, unspecified; F17.210 Nicotine dependence, cigarettes, uncomplicated; Z53.29 Procedure and treatment not carried out because of patient's decision for other reasons; Z79.899 Other long term (current) drug therapy; Z79.82 Long term (current) use of aspirin; Z79.02 Long term (current) use of antithrombotics/antiplatelets; Z88.8 Allergy status to other drugs, medicaments and biological substances; Z86.718 Personal history of other venous thrombosis and embolism; Z95.5 Presence of coronary angioplasty implant and graft; Z95.1 Presence of aortocoronary bypass graft
CPT/HCPCS: 96374; 96375; 99285; 36415; 93005; 80053; 82150; 83690; 83735; 84484; 85025; 85610; 85730; 81003; 71046; 74177; G0378; J2270; J1885; Q9967

== ENCOUNTER → 2024-09-20 | Outpatient (CLI) | payer OTHER ==
--- NOTE | 2024-09-20 13:08 | MR ---
EXAMINATION TYPE: MR MRCP DATE OF EXAM: 09/20/2024 10:44 AM COMPARISON: 08/11/2024. CLINICAL INDICATION: Female, 54 years old with history of Z87.19, pancreatitis, gallstones. TECHNIQUE: Multi planar, T2-weighted imaging with and without fat saturation and chemical shift imag ing was performed of the abdomen. Then, heavily T2 weighted imaging (half-Fourier acquisition single- shot turbo spin-echo) was utilized in order to study the biliary system. Maximum intensity projectio n images were reconstructed from the original data of the biliary tree. 3D images were created on [employer] work station. No Gadolinium given. FINDINGS: Lower Thorax: No evidence for acute process. MRCP: * The intrahepatic ducts have a normal appearance. * The extrahepatic ducts have a normal appearance. * The common hepatic duct measures 9 mm in size. * The common bile duct at the level of the pancreatic head measures7 mm in size. * The pancreatic duct density is pancreatic divisum morphology. * The gallbladder appears may be a few low density gallstones layering in the gallbladder neck. Abdomen: Liver: No evidence for hepatic steatosis or cirrhosis. Signal dropout on chemical shift in phase imag ing. Pancreas: Mild inflammation changes seen around the pancreas on fat saturated sequences. No ductal di lation. No evidence for solid mass. Spleen: Normal for size. Signal dropout on chemical shift in phase imaging. Adrenal glands: Left adrenal gland nodule demonstrating signal dropout on chemical shift of phase laury ging measuring up to 13 mm compatible with lipid rich adrenal adenoma. Kidneys: No evidence for obstructive uropathy. No suspicious renal masses. Stomach and Bowel: No evidence for bowel wall thickening or evidence for obstruction. Retroperitoneum/Peritoneum: No evidence of pneumoperitoneum or free fluid. Vasculature: No aortic aneurysm. Musculoskeletal: The osseous structures appear intact. Lymph Nodes: No gross evidence for lymphadenopathy. Abdominal wall: Fat-containing umbilical hernia. IMPRESSION: 1. Mild inflammation changes around the pancreas compatible with history of pancreatitis. 2. Pancreatic divisum mild extrahepatic biliary dilation. 3. No evidence to suggest ductal stricture or choledocholithiasis. 4. Cholelithiasis suggested. 5. Left adrenal adenoma. 6. Iron deposition in the liver and spleen. [facility], , 09/20/2024 1:06 PM
== END | disposition home or self-care (01) ==
LOC: RADMRIMAIN 09:13
PROVIDERS: ATTEND Internal Medicine Gastroenterology
DX: D35.02 Benign neoplasm of left adrenal gland (principal); Q45.3 Other congenital malformations of pancreas and pancreatic duct; K80.20 Calculus of gallbladder without cholecystitis without obstruction; Z87.19 Personal history of other diseases of the digestive system
CPT/HCPCS: 74181

== ENCOUNTER 2024-12-26 19:13 | Emergency (ER) | payer OTHER ==
[~2024-12-26 19:13] MED LIST changes: +CALCIUM CHLORIDE 100 MG/ML 10 ML SYRINGE ONE; +EPINEPHrine 10 ML SYRINGE (0.1 MG/ML) ONE; +SODIUM BICARB 8.4% 50 ML SYR (1 MEQ/ML) ONE; -SODIUM CHLORIDE 0.9% 500 ML 500 ML IV SCH
[2024-12-26] MEDS: EPINEPHrine 4 MG in DEXTROSE 5% IN WATER 250 ML IV ONE (19:51)
--- NOTE | 2024-12-26 20:49 | ED ---
General Adult HPI - General Chief complaint: Cardiac Arrest/CPR Stated complaint: Cardiac arrest Time Seen by Provider: 12/26/24 20:12 Source: EMS Mode of arrival: EMS - History of Present Illness Initial comments: Dictation was produced using [employer] dictation software. please excuse any grammatical, word or spelling errors. Chief Complaint: 54-year-old female extensive cardiac history presents with cardiac arrest History of Present Illness: Patient is 54-year-old female with history of multiple coronary artery stents. History present illness obtained from EMS. Apparently she was complaining of jaw pain earlier in the day. Approximate 1 hour prior to arrival she was found down. EMS was on scene within around 15 minutes. She was found to be asystole and EMS initially called for time of however her pulses were checked and she did have a pulse. She was had multiple rounds of CPR en route to the ER. Patient downtime was approximately 1 hour prior to arrival. She did get return of spontaneous circulation a few times. She has had several rounds of epinephrine and defibrillation. Unable to obtain ROS secondary mental status - Related Data Home Medications Medication Instructions Recorded Confirmed Nitroglycerin Sl Tabs [Nitrostat] 0.4 mg SL Q5M PRN 08/26/20 01/30/24 Furosemide [Lasix] 20 mg PO DAILY PRN 01/30/24 01/30/24 HYDROcodone/APAP 10-325MG [[place] 1 tab PO BID 01/30/24 01/30/24 10-325] Previous Rx's Medication Instructions Recorded Aspirin 81 mg PO DAILY #30 tab 02/02/24 Atorvastatin [Lipitor] 40 mg PO DAILY #30 tab 02/02/24 Clopidogrel [Plavix] 75 mg PO DAILY #30 tab 02/02/24 Ezetimibe [Zetia] 10 mg PO DAILY #30 tab 02/02/24 Metoprolol Tartrate [Lopressor] 12.5 mg PO BID #60 tab 02/02/24 amLODIPine [Norvasc] 10 mg PO DAILY #30 tab 02/02/24 lisinopriL [Zestril] 10 mg PO BID #60 tab 02/02/24 Ketorolac [Toradol] 10 mg PO Q8HR #15 tab 08/11/24 Ondansetron Odt [Zofran Odt] 4 mg PO Q8HR PRN #10 tab 08/11/24 Allergies Allergy/AdvReac Type Severity Reaction Status Date / Time Zoyjwmh-QCF-SpG Reductase Allergy Unknown Verified 08/11/24 14:10 Inhibitor Review of Systems ROS Statement: Those systems with pertinent positive or pertinent negative responses have been documented in the HPI. ROS Other: All systems not noted in ROS Statement are negative. Past Medical History Past Medical History: Chest Pain / Angina, Deep Vein Thrombosis (DVT), Hypertension, Myocardial Infarction (SC), Skin Disorder Additional Past Medical History / Comment(s): fibromyalgia, lupus. double bypass, CONGESTIVE HEART FAILURE, HAS BLOOD CLOT IN RT FOREARM AND ANOTHER ONE IN LEFT LEG THIGH AREA Last Myocardial Infarction Date:: 08/25/20 History of Any Multi-Drug Resistant Organisms: None Reported Past Surgical History: Adenoidectomy, Coronary Bypass/CABG, Heart Catheterization With Stent, Tonsillectomy Additional Past Surgical History / Comment(s): DOUBLE BYPASS- 2015, ANEURYSM GRAFT NOV 2015 Past Anesthesia/Blood Transfusion Reactions: No Reported Reaction Date of Last Stent Placement:: August 2020 Past Psychological History: Anxiety Smoking Status: Current every day smoker Past Alcohol Use History: None Reported Past Drug Use History: Marijuana - Past Family History Father History Unknown: Yes Additional Family Medical History / Comment(s): UNKNOWN Brother(s) Family Medical History: No Reported History Sister(s) Family Medical History: No Reported History Mother Family Medical History: Hypertension General Exam - General Exam Comments Initial Comments: General: Mottled, pale, cyanotic Head: Normocephalic, atraumatic Eyes: Fixed and dilated pupils ENT: Intubated Chest: No spontaneous respirations, bilateral breath sounds with [id number] ventilation Skin: Mottled Neuro: No painful movement Course Vital Signs 12/26/24 12/26/24 12/26/24 19:16 19:27 19:29 Pulse Rate 107 H 40 L Respiratory 20 Rate Blood Pressure 198/28 62/32 O2 Sat by Pulse 89 L Oximetry Fraction of 100 Inspired Oxygen (FIO2) 12/26/24 12/26/24 12/26/24 19:31 19:34 19:44 Pulse Rate 79 59 L 116 H Respiratory 18 Rate Blood Pressure 75/53 122/85 O2 Sat by Pulse 32 L 57 L 39 L Oximetry Fraction of Inspired Oxygen (FIO2) 12/26/24 12/26/2425 19:48 19:54 19:55 Pulse Rate 98 50 L Respiratory Rate Blood Pressure 125/83 127/61 O2 Sat by Pulse 40 L Oximetry Fraction of 100 Inspired Oxygen (FIO2) 12/26/24 12/26/24 12/26/24 20:23 20:28 20:30 Pulse Rate 44 L 50 L 40 L Respiratory Rate Blood Pressure 104/74 104/55 84/48 O2 Sat by Pulse 100 99 96 Oximetry Fraction of Inspired Oxygen (FIO2) 12/26/24 12/26/24 12/26/24 20:32 20:39 20:40 Pulse Rate 44 L 65 96 Respiratory Rate Blood Pressure 119/65 102/31 120/77 O2 Sat by Pulse 88 L 96 95 Oximetry Fraction of Inspired Oxygen (FIO2) 12/26/24 12/26/24 12/26/24 20:45 20:50 20:55 Pulse Rate 118 H 120 H 53 L Respiratory Rate Blood Pressure 112/75 130/73 93/56 O2 Sat by Pulse 86 L 80 L 73 L Oximetry Fraction of Inspired Oxygen (FIO2) 12/26/24 12/26/24 12/26/24 21:00 21:09 21:18 Pulse Rate 120 H 80 33 L Respiratory 21 Rate Blood Pressure 121/75 89/58 47/32 O2 Sat by Pulse 81 L 80 L 86 L Oximetry Fraction of Inspired Oxygen (FIO2) - Reevaluation(s) Reevaluation #1: 12/26/24 20:46 Patient was accepted in trauma bay #4. Patient was in the emergency department for approximately 1 hour with multiple rounds of CPR, epinephrine. Patient is epinephrine dependent. She would become bradycardic and hypotensive however would respond to some IV pushes of epinephrine. Patient had significant downtime. At the time of discussion with family patient has been down for approximately 2 hours and 30 minutes. Family was notified of patient's cond ition. Cardiology was contacted and agreed that patient not a good candidate for lab activation. Family is brought to the bedside. They were told that there is no significant recovery for this and that she is medication dependent. Patient has poor prognosis likely brain- with evidence of fixed and dilated pupils. Reevaluation #2: 12/26/24 21:12 At 9:11 PM patient's vitals began to diminish once again. Her heart rate dropped into the 60s and blood pressure went to 78/51. Family at the bedside agreed that resuscitation efforts be discontinued due to extremely poor prognosis. Comfort measures pursued. Patient given morphine and ventilator was disconnected. Reevaluation #3: 12/26/24 21:37 time of was 924pm Reevaluation #4: 12/26/24 21:43 Case was discussed with certified medical coder request that patient's body be held at the morgue. digital forensic examiner will need to speak with family before further actions are taken. Procedures - Arterial Line No standard instances Consent Obtained: verbal consent Size (Gauge): 14 Technique Used: direct puncture technique Post-Procedure: line sutured into place Patient Tolerated Procedure: well Complications: none, other Additional Comments: performed with ultrasound guidance - Central Line Placement Right Femoral Consent Obtained: verbal consent, emergent situation Prep: mask, gown, gloves Central Line Prep: Chlorhexidine scrub Local Anesthesia Used: Lidocaine 1% Ultrasound Used for Placement: Yes Central Line Lumen Inserted: triple Bloods Obtained for Lab: No Central Line Position: good blood return Dressing Applied: Tegaderm Post Procedure X-Ray: tip of catheter in good position Patient Tolerated Procedure: well Complications: none Medical Decision Making - Medical Decision Making Was pt. sent in by a medical professional or institution (, PA, SHOT FIREMAN, urgent care, hospital, or care home...) When possible be specific @ -No Did you speak to anyone other than the patient for history (EMS, parent, family, police, friend...)? What history was obtained from this source @ -More history obtained from family states that patient does have extensive cardiac history. She was allegedly on the phone no distress earlier. Apparently she did have some chest pain and took 3 nitros according to daughter. Did you review nursing and triage notes (agree or disagree)? Why? @ -I reviewed and agree with nursing and triage notes Were old charts reviewed (outside hosp., previous admission, EMS record, old EKG, old radiological studies, urgent care reports/EKG's, care home records)? Report findings @ -No old charts were reviewed Differential Diagnosis (chest pain, altered mental status, abdominal pain women, abdominal pain men, vaginal bleeding, musculoskeletal, weakness, fever, dyspnea, syncope, headache, dizziness, GI bleed, back pain, seizure, CVA, palpatations, mental health)? @ -Cardiac arrest, pulmonary embolism, acidosis myocardial infarction EKG interpreted by me (3pts min.). @ -My EKG interpretation: Ventricular rate 48, A-fib with slow, large ST de pressions and precordial leads.. QRS 149, QTc 413. EKG questionable for SC versus post ROSC cardiomyopathy X-rays interpreted by me (1pt min.). @ -None done CT interpreted by me (1pt min.). @ -None done U/S interpreted by me (1pt. min.). @ -None done What testing was considered but not performed or refused? (CT, X-rays, U/S, labs)? Why? @ -None What meds were considered but not given or refused? Why? @ -None Was smoking cessation discussed for >3mins.? @ -No Were there social determinants of health that impacted care today? How? (Homelessness, low income, unemployed, alcoholism, drug addiction, transportation, low edu. Level, literacy, decrease access to med. care, halfway, rehab)? @ -No Was there de-escalation of care discussed even if they declined (Discuss DNR or withdrawal of care, Hospice)? DNR status @ -Patient was made no code after extensive discussion with the family What co-morbidities impacted this encounter? (DM, HTN, Smoking, COPD, CAD, Cancer, CVA, ARF, Chemo, Hep., AIDS, mental health diagnosis, sleep apnea, morbid obesity)? @ -None Was patient admitted / discharged? Hospital course, mention meds given and route, prescriptions, significant lab abnormalities, going to OR and other pertinent info. @ -54-year-old female extensive cardiac history presents to the ER for cardiac arrest. Please see above for further detail regarding clinical course. Time of was announced at 2123. Case will be discussed with certified medical coder for further care. Did you discuss the management of the patient with other professionals (professionals i.e. , PA, SHOT FIREMAN, lab, RT, psych nurse, geriatric social work professor, ctc operator, teacher, youth officer, caser up)? Give summary @ -No Was critical care preformed (if so, how long)? @ -yes, 77 minutes Undiagnosed new problem with uncertain prognosis? @ -No Drug Therapy requiring intensive monitoring for toxicity (Heparin, Nitro, Insulin, Cardizem)? @ -No Were any procedures done? @ -No Diagnosis/symptom? Acute, or Chronic, or Acute on Chronic? Uncomplicated (without systemic symptoms) or Complicated (systemic symptoms)? @ -Cardiac arrest, suspect massive SC Side effects of treatment? @ -No Exacerbation, Progression, or Severe Exacerbation? @ -No Poses a threat to life or bodily function? How? (Chest pain, USA, SC, pneumonia, PE, COPD, DKA, ARF, appy, cholecystitis, CVA, Diverticulitis, Homicidal, Suicidal, threat to staff... and all critical care pts) @ -yes Disposition Clinical Impression: Cardiac arrest Disposition: Condition: Undetermined Referrals: None,Stated [Primary Care Provider] - 1-2 days Time of Disposition: 22:00 Preliminary Cause of : cardiac arrest
[2024-12-26] MEDS: MORPHINE SULFATE 4 MG/ML SYRINGE IVP PRN (21:18)
[2024-12-26 21:19] VITALS: BP 47/32; PULSE 33; RESP 21
[2024-12-26] MEDS: VASOPRESSIN 20 UNIT in SODIUM CHLORIDE 0.9% 50 ML IV SCH (22:00)
== END 2024-12-27 00:36 | disposition expired ==
LOC: EC 19:13
DX: I46.9 Cardiac arrest, cause unspecified (principal); F17.200 Nicotine dependence, unspecified, uncomplicated; Z88.8 Allergy status to other drugs, medicaments and biological substances
CPT/HCPCS: 94002; 92950; 93005; 99291; 36556; 36620; 96365; 96375; J0171 ×2; J2270